=== PATIENT | female | born 1975 | race Two or more races ===

== ENCOUNTER 2020-05-28 16:09 | Outpatient (REF) | payer MEDICARE, MEDICAID, SELFPAY | END 2020-05-28 16:10 | disposition home or self-care (01) | LOC: HO.LAB 16:09 | PROVIDERS: PCP Pediatrics; Visit Provider Internal Medicine | DX: Z20.828 Contact with and (suspected) exposure to other viral communicable diseases (principal) | CPT/HCPCS: 87635 ==

== ENCOUNTER 2020-06-13 17:03 | Outpatient (REF) | payer MEDICARE, MEDICAID, SELFPAY | END 2020-06-13 17:04 | disposition home or self-care (01) | LOC: HO.LAB 17:03 | PROVIDERS: Visit Provider Internal Medicine | DX: Z20.828 Contact with and (suspected) exposure to other viral communicable diseases (principal) | CPT/HCPCS: C9803; U0003 ==

== ENCOUNTER 2020-07-02 17:05 | Outpatient (REF) | payer MEDICARE, MEDICAID, SELFPAY | END 2020-07-02 17:06 | disposition home or self-care (01) | LOC: HO.LAB 17:05 | PROVIDERS: Visit Provider Internal Medicine | DX: Z20.828 Contact with and (suspected) exposure to other viral communicable diseases (principal) | CPT/HCPCS: C9803; U0003 ==

== ENCOUNTER 2020-07-15 11:59 | Outpatient (REF) | payer MEDICARE, MEDICAID, SELFPAY ==
[2020-07-15 12:37] LABS: MANUAL DIFF FLAG NO
[2020-07-15 12:50] LABS: Basophils Percent Auto 0.4 % (0-2); Eosinophils Absolute Auto 0.1 X10*3/uL (0.0-0.4); Eosinophils Percent Auto 0.6 % (0-4); Hematocrit 38.6 % (37-47); Hemoglobin 12.3 g/dl (12.0-16.0); Imm Gran Abs Auto 0.03 X10*3/uL (0.00-0.03); Imm Gran Pct Auto 0.3 % (0.0-0.4); Lymphocytes Absolute Auto 2.9 X10*3/uL (1.2-4.9); Lymphocytes Percent Auto 27.4 % (20-40); Mean Corpuscular HGB Conc 31.9 g/dl (31.0-35.0); Mean Corpuscular Hemoglobin 28.1 pg (27.0-33.0); Mean Corpuscular Volume 88.3 fL (80-98); Mean Platelet Volume 10.8 fL (9.4-12.3); Monocytes Absolute Auto 0.6 X10*3/uL (0.1-1.2); Monocytes Percent Auto 5.8 % (2-11); Neutrophils Absolute Auto 6.9 X10*3/uL (2.0-8.3); Neutrophils Percent Auto 65.5 % (45-73); Platelet Count 288 X10*3/uL (160-400); Red Blood Count 4.37 X10*6/uL (4.20-5.50); Red Cell Distribution Width 13.6 % (11.0-16.0); White Blood Count 10.6 X10*3/uL (4.8-10.8)
[2020-07-15 13:25] LABS: Alanine Aminotransferase 31 U/L (0-31); Alkaline Phosphatase 77 U/L (39-117); Anion Gap 15 (12-20); Aspartate Amino Transferase 25 U/L (5-31); Bilirubin Total 1.1 mg/dL (0.0-1.0); Blood Urea Nitrogen 9 mg/dL (9-16); Calcium 9.2 mg/dL (8.4-10.2); Carbon Dioxide 25 mmol/L (22-29); Chloride 103 mmol/L (96-108); Estimated Glomerular Filt Rate > 60; Glucose Random 94 mg/dL (60-115); Potassium 4.2 mmol/l (3.3-5.1); Sodium 139 mmol/L (135-145); Total Protein 7.2 g/dL (6.5-8.0)
[2020-07-18 19:53] LABS: TS Negative Control Passed; TS Panel A 0; TS Panel B 0; TS Positive Control Passed; TSpotTB Negative (SeeBelow)
== END 2020-07-15 12:00 | disposition home or self-care (01) ==
LOC: HO.LAB 11:59
PROVIDERS: Visit Provider Physician Assistant Medical
DX: L40.0 Psoriasis vulgaris (principal)
CPT/HCPCS: 36415; 80053; 85025; 86481

== ENCOUNTER 2020-08-15 16:24 | Outpatient (REF) | payer OTHER, SELFPAY | END 2020-08-15 16:25 | disposition home or self-care (01) | LOC: HO.LAB 16:24 | PROVIDERS: Visit Provider Internal Medicine | DX: Z20.822 Contact with and (suspected) exposure to COVID-19 (principal) | CPT/HCPCS: 36415; C9803; U0003 ==

== ENCOUNTER → 2020-11-19 12:39 | Outpatient (REF) | payer OTHER, SELFPAY | LOC: HO.SL 12:39 | PROVIDERS: PCP Family Medicine; Visit Provider Family Medicine | DX: G47.33 Obstructive sleep apnea (adult) (pediatric) (principal) | CPT/HCPCS: 95806 ==

== ENCOUNTER 2021-02-17 09:25 | Outpatient (REF) | payer OTHER, SELFPAY ==
[2021-02-17 10:00] LABS: MANUAL DIFF FLAG NO
[2021-02-17 10:07] LABS: Basophils Percent Auto 0.3 % (0-2); Eosinophils Absolute Auto 0.1 X10*3/uL (0.0-0.4); Hematocrit 38.8 % (37-47); Imm Gran Abs Auto 0.03 X10*3/uL (0.00-0.03); Imm Gran Pct Auto 0.3 % (0.0-0.4); Lymphocytes Absolute Auto 4.3 X10*3/uL (1.2-4.9); Lymphocytes Percent Auto 39.9 % (20-40); Mean Corpuscular HGB Conc 30.9 g/dl (31.0-35.0); Mean Corpuscular Hemoglobin 26.9 pg (27.0-33.0); Mean Platelet Volume 10.7 fL (9.4-12.3); Monocytes Absolute Auto 0.7 X10*3/uL (0.1-1.2); Monocytes Percent Auto 6.7 % (2-11); Neutrophils Absolute Auto 5.5 X10*3/uL (2.0-8.3); Neutrophils Percent Auto 51.8 % (45-73); Platelet Count 317 X10*3/uL (160-400); Red Blood Count 4.46 X10*6/uL (4.20-5.50); Red Cell Distribution Width 13.5 % (11.0-16.0); White Blood Count 10.7 X10*3/uL (4.8-10.8)
[2021-02-17 10:32] LABS: Alanine Aminotransferase 30 U/L (0-31); Albumin Level 3.9 g/dL (3.5-5.0); Alkaline Phosphatase 75 U/L (39-117); Anion Gap 13 (12-20); Aspartate Amino Transferase 21 U/L (5-31); Bilirubin Total 1.2 mg/dL (0.0-1.0); Blood Urea Nitrogen 10 mg/dL (9-16); Calcium 9.1 mg/dL (8.4-10.2); Carbon Dioxide 25 mmol/L (22-29); Chloride 105 mmol/L (96-108); Estimated Glomerular Filt Rate > 60; Glucose Random 101 mg/dL (60-115); Potassium 4.3 mmol/L (3.3-5.1); Sodium 139 mmol/L (135-145); Total Protein 6.9 g/dL (6.5-8.0)
== END 2021-02-17 09:26 | disposition home or self-care (01) ==
LOC: HO.LAB 09:25
PROVIDERS: PCP Family Medicine; Visit Provider Physician Assistant Medical
DX: L40.0 Psoriasis vulgaris (principal)
CPT/HCPCS: 36415; 80053; 85025

== ENCOUNTER 2021-04-21 12:51 | Outpatient (REF) | payer OTHER, SELFPAY | END 2021-04-21 12:52 | disposition home or self-care (01) | LOC: HO.LAB 12:51 | PROVIDERS: PCP Family Medicine; Visit Provider Internal Medicine | DX: Z20.822 Contact with and (suspected) exposure to COVID-19 (principal) | CPT/HCPCS: C9803; U0003; U0005 ==

== ENCOUNTER 2021-05-12 13:02 | Outpatient (REF) | payer OTHER, SELFPAY | END 2021-05-12 13:03 | disposition home or self-care (01) | LOC: HO.LAB 13:02 | PROVIDERS: Visit Provider Internal Medicine | DX: Z20.822 Contact with and (suspected) exposure to COVID-19 (principal) | CPT/HCPCS: U0003; U0005 ==

== ENCOUNTER 2021-06-17 14:58 | Outpatient (REF) | payer OTHER, SELFPAY | END 2021-06-17 14:59 | disposition home or self-care (01) | LOC: HO.LAB 14:58 | PROVIDERS: PCP Family Medicine; Visit Provider Internal Medicine | DX: Z20.822 Contact with and (suspected) exposure to COVID-19 (principal) | CPT/HCPCS: C9803; U0003; U0005 ==

== ENCOUNTER 2022-01-12 08:48 | Emergency (ER) | payer OTHER, SELFPAY ==
--- NOTE | ~2022-01-12 | XR_ITS ---
EXAMINATION: XR FOOT, RIGHT CLINICAL INFORMATION: Right foot pain COMPARISON: None TECHNIQUE: AP, lateral, and oblique views of the right foot. FINDINGS: The ankle mortise and subtalar joints are normal. There are small calcaneal heel and retrocalcaneal enthesophytes. No visible acute fracture or dislocation seen. The soft tissues are normal. XR/XR foot RT 2V IMPRESSION: Small calcaneal heel and retrocalcaneal enthesophytes. No visible acute fracture, dislocation our subluxation.
[2022-01-12 08:55] VITALS: BP 180/93; PULSE 78; RESP 18; TEMP 36.9; O2SAT 98; BMI 46.8
--- NOTE | 2022-01-12 09:03 | ED.GENADULT ---
HPI - General Adult General Chief complaint: Extremity Problem Stated complaint: r foot pain. arthritis in knee Time Seen by Provider: 01/12/22 09:03 Source: patient Mode of arrival: ambulatory Limitations: no limitations History of Present Illness HPI narrative: Patient is a 46 year old female presenting to the emergency department today with right heel pain. Patient states that she has had increased right heel pain since doing some walking this weekend. Patient states that she has a history of arthritis in both knees, but now usually her feet. Patient denies any dizziness, lightheadedness, abdominal pain, nausea, vomiting, fever, chills, blurry vision, double vision, loss of vision, chest pain, difficulty breathing, shortness of breath, back pain, night sweats, pain with urination, increased urinary frequency, increased urinary urgency, blood in her urine or stool, syncope or a near syncopal episode, recent trauma or falls, bowel incontinence, bladder incontinence, bowel retention, bladder retention, or any other complaints at this time. Onset (ago): day(s) Location: right and lower extremity (heel) Radiation: non-radiation Severity: mild Severity scale (1-10): 2 Quality: dull Pain Consistency: constant Relieving factors: none Exacerbating factors: none Associated symptoms: denies other symptoms Treatments prior to arrival: none Related Data Allergies Allergy/AdvReac Type Severity Reaction Status Date / Time No Known Allergies Allergy Unknown N/A Unverified 04/25/20 14:58 [NO KNOWN ALLERGIES] Review of Systems Constitutional: Constitutional: Reports no additional constitutional complaints, Denies chills, Denies fever(s) and Denies night sweats Eyes: Eyes: Reports no additional eye complaints, Denies blurry vision, Denies change in vision, Denies diplopia, Denies eye discharge, Denies loss of vision and Denies eye pain ENT: Denies dizziness Cardiovascular: Cardiovascular: Reports no additional cardiovascular complaints, Denies chest pain, Denies lightheadedness, Denies Loss of Consciousness and Denies dyspnea Respiratory: Respiratory: Reports no additional respiratory complaints and Denies dyspnea Gastrointestinal: Gastrointestinal: Reports no additional gastrointestinal complaints, Denies abdominal pain, Denies melena, Denies hematochezia, Denies change in bowel habits and Denies change in stool character Genitourinary: Genitourinary: Denies hematuria, Denies urinary frequency, Denies dysuria, Denies urinary incontinence, Denies urinary hesitancy and Denies urinary urgency Musculoskeletal: Musculoskeletal: Reports no additional musculoskeletal complaints, Denies numbness and Denies tingling Comments: right heel pain Neurologic: Denies dizziness, Denies loss of vision, Denies numbness and Denies tingling Psychiatric: Psychiatric: Reports no additional psychiatric complaints Endocrine: Endocrine: Reports no additional endocrine complaints Hematologic/Lymphatic: Hematologic/Lymphatic: Reports no additional hematologic/lymphatic complaints Allergic/Immunologic: Allergic/Immunologic: Reports no additional allergic/immunologic complaints PMFSH Past Medical History Attestation statement: The following information was validated with the patient. Source: old records reviewed Social History Social History Advance Directives: No Advance Directives Information Provided: Yes Physical Exam ED Vital Signs: Vital Signs - 24 hr 01/12/22 08:55 01/12/22 10:11 Temperature 98.4 F Pulse Rate 78 60 Respiratory Rate 18 17 Blood Pressure 180/93 H 148/83 H Pulse Oximetry 98 97 BMI result Body Mass Index 46.8 Const General: cooperative, no acute distress, alert and awake Nutritional Appearance: well nourished Orientation/consciousness: patient oriented x3 Limitations: no limitations HENMT Head: Yes normal to inspection and Yes atraumatic Ears: hearing grossly normal bilaterally and external ears normal General nose exam: Normal external nose present, no nasal discharge noted and no epistaxis Face and sinus: Yes normal facial exam, No abrasion and No laceration Mouth: Normal oral and palatal mucosa present, no drooling and no muffled voice Eyes General: appearance normal, both eyes and all related structures Periorbital: periorbital findings normal Eyelids: Yes eyelids normal Conjunctivae: conjunctivae normal Pupils: Equal, round and reactive pupils present EOM: EOMs intact bilaterally Neck Neck: Yes normal visual inspection, Yes full ROM and Yes no lymphadenopathy Chest Chest palpation & inspection: normal inspection of the chest Resp Effort & Inspection: normal respiratory effort and able to speak in complete sentences Auscultation: clear to auscultation bilaterally Cardio Rate: regular rate Rhythm: regular rhythm GI Inspection: Yes normal to inspection Neuro General: patient oriented x3 and moves all extremities Cranial nerves: Yes Equal, round and reactive pupils present Cognition (Neuro): normal cognition Motor exam (neuro): 5/5 motor strength present throughout Sensory Exam: Normal double simultaneous stimulation for sensation Coordination: [id number] test normal Extrem General: Yes normal to inspection, Yes full ROM and Yes capillary refill normal Psych Appearance: grossly normal Mental Status: mental status grossly normal Affect: normal affect Attitude: cooperative Thought process: Normal thought process present Thought content: Normal thought content present Insight: Good insight present (Psych) Medical Decision Making MDM Narrative Medical decision making narrative: Patient is a 46 year old female presenting to the emergency department today with right heel pain. Patient's physical exam was unremarkable. Patient's right foot showed a small calcaneal heel and retrocalcaneal enthesophytes. I explained my physical exam findings as well as all test results to the patient. I answered all questions asked by the patient. I stressed the importance of the patient taking her medication as prescribed. I stressed the importance of the patient following up with her primary care provider and an orthopedic. I stressed the importance of the patient returning to the emergency department immediately if her symptoms were to worsen or if she were to develop any dizziness, shortness of breath, difficulty breathing, chest pain, blurry vision, loss of vision, nausea, vomiting, abdominal pain, fever, chills, back pain, or any other complaints. Patient verbalized agreement and understanding with this treatment plan and discharge. Differential Diagnosis Differential Diagnosis: heel spur, plantar fasciitis, right heel pain Medical Records Medical records reviewed: Yes I reviewed the patient's medical records. Imaging Data Right foot x-ray: Attestation: I personally reviewed and interpreted this imaging study as follows: My impression: Calcaneal heel and retrocalcaneal enthesophytes Radiologist's impression: EXAMINATION: XR FOOT, RIGHT CLINICAL INFORMATION: Right foot pain? COMPARISON: None? TECHNIQUE: AP, lateral, and oblique views of the right foot. FINDINGS: The ankle mortise and subtalar joints are normal. There are small calcaneal heel and retrocalcaneal enthesophytes. No visible acute fracture or dislocation seen. The soft tissues are normal.? XR/XR foot RT 2V IMPRESSION: Small calcaneal heel and retrocalcaneal enthesophytes. No visible acute fracture, dislocation our subluxation. Dictated By: aDniel Cornell MD Signed By: Electronically signed by Daniel Cornell MD 01/12/22 1024 Discharge Plan Discharge Clinical Impression: Plantar fasciitis Patient Disposition: Home, Self-Care Instructions: Plantar Fasciitis (ED) Additional Instructions: Follow up with your primary care provider and an orthopedist. Return to the emergency department immediately if your symptoms worsen or if you develop any dizziness, shortness of breath, difficulty breathing, chest pain, blurry vision, loss of vision, nausea, vomiting, abdominal pain, fever, chills, back pain, or any other complaints. Referrals: Laila De Jesus MD [Primary Care Provider] - Stand Alone Forms: Work/School Release Print Language: Kyrgyz
[2022-01-12 10:11] VITALS: BP 148/83; PULSE 60; RESP 17; O2SAT 97
== END 2022-01-12 10:58 | disposition home or self-care (01) ==
PROVIDERS: Emergency Provider Student in an Organized Health Care Education/Training Program; PCP Family Medicine
DX: M72.2 Plantar fascial fibromatosis (principal); M79.671 Pain in right foot
CPT/HCPCS: 73620; 99282; 99283

== ENCOUNTER 2022-03-06 15:05 | Outpatient (REF) | payer OTHER, SELFPAY ==
[2022-03-06 15:25] LABS: MANUAL DIFF FLAG NO
[2022-03-06 15:42] LABS: Basophils Percent Auto 0.3 % (0-2); Eosinophils Percent Auto 0.3 % (0-4); Hematocrit 41.2 % (37.0-47.0); Hemoglobin 13.1 g/dl (12.0-16.0); Imm Gran Abs Auto 0.06 X10*3/uL (0.00-0.03); Imm Gran Pct Auto 0.4 % (0.0-0.4); Lymphocytes Absolute Auto 2.3 X10*3/uL (1.2-4.9); Lymphocytes Percent Auto 16.7 % (20-40); Mean Corpuscular HGB Conc 31.8 g/dl (31.0-35.0); Mean Corpuscular Hemoglobin 27.2 pg (27.0-33.0); Mean Corpuscular Volume 85.7 fL (80.0-98.0); Mean Platelet Volume 10.5 fL (9.4-12.3); Monocytes Absolute Auto 0.6 X10*3/uL (0.1-1.2); Monocytes Percent Auto 4.2 % (2-11); Neutrophils Absolute Auto 10.7 x10*3/uL (2.0-8.3); Neutrophils Percent Auto 78.1 % (45-73); Platelet Count 337 X10*3/uL (160-400); Red Blood Count 4.81 X10*6/uL (4.20-5.50); Red Cell Distribution Width 13.9 % (11.0-16.0); White Blood Count 13.7 X10*3/uL (4.8-10.8)
[2022-03-06 16:12] LABS: Anion Gap 17 (12-20); Blood Urea Nitrogen 11 mg/dL (9-16); Calcium 9.4 mg/dL (8.4-10.2); Carbon Dioxide 24 mmol/L (22-29); Chloride 103 mmol/L (96-108); Estimated Glomerular Filt Rate > 60; Glucose Random 101 mg/dL (60-115); Potassium 4.6 mmol/L (3.3-5.1); Sodium 139 mmol/L (135-145)
[2022-03-12 12:57] LABS: TS Negative Control Passed; TS Panel A 0; TS Panel B 0; TS Positive Control Passed; TSpotTB Negative (Negative)
== END 2022-03-06 15:06 | disposition home or self-care (01) ==
LOC: HO.LAB 15:05
PROVIDERS: PCP Registered Nurse Community Health; Visit Provider Physician Assistant Medical
DX: Z11.1 Encounter for screening for respiratory tuberculosis (principal); L40.0 Psoriasis vulgaris; Z79.899 Other long term (current) drug therapy
CPT/HCPCS: 36415; 80048; 85025; 86481

== ENCOUNTER 2022-07-07 15:08 | Outpatient (REF) | payer OTHER, SELFPAY ==
--- NOTE | ~2022-07-07 | MM_ITS ---
EXAMINATION: MM SCREENING DIGITAL BREAST TOMOSYNTHESIS, BILATERAL CLINICAL INFORMATION: Screening. Asymptomatic. The lifetime risk of breast cancer based on the Tyrer-Cuzick Model is 16%. COMPARISON: Mammography: 10/06/2017 (baseline) TECHNIQUE: Digital breast tomosynthesis is performed in both the craniocaudal and mediolateral oblique views along with computer-aided detection (CAD). Synthesized 2D images are generated from the tomosynthesis. Additional bilateral MLO and left cleavage views are provided. FINDINGS: There are scattered areas of fibroglandular density (ACR BI-RADS breast composition Category b). There are no significant masses, abnormal calcifications, or other abnormalities. Parenchymal pattern is similar to prior baseline exam. The axilla are unremarkable. There is a small dermal lesion again seen overlying the posterior inferior medial right breast. MM/MM tomosynthesis screening BI IMPRESSION: No mammographic evidence of malignancy. ASSESSMENT: BI-RADS 2: Benign RECOMMENDATION: Routine annual mammography screening. This patient's information was entered into a reminder system with a target due date for their next mammogram.
== END 2022-07-07 15:09 | disposition home or self-care (01) ==
LOC: HO.MAMMO 15:08
PROVIDERS: PCP Registered Nurse; Visit Provider Registered Nurse
DX: Z12.31 Encounter for screening mammogram for malignant neoplasm of breast (principal)
CPT/HCPCS: 77063; 77067

== ENCOUNTER 2022-12-16 15:14 | Outpatient (REF) | payer OTHER, SELFPAY ==
[2022-12-16 15:38] LABS: MANUAL DIFF FLAG NO
[2022-12-16 16:14] LABS: Basophils Percent Auto 0.2 % (0-2); Eosinophils Absolute Auto 0.2 X10*3/uL (0.0-0.4); Eosinophils Percent Auto 1.3 % (0-4); Hematocrit 40.1 % (37.0-47.0); Hemoglobin 12.6 g/dl (12.0-16.0); Imm Gran Abs Auto 0.03 X10*3/uL (0.00-0.03); Imm Gran Pct Auto 0.2 % (0.0-0.4); Lymphocytes Absolute Auto 4.3 X10*3/uL (1.2-4.9); Mean Corpuscular HGB Conc 31.4 g/dl (31.0-35.0); Mean Corpuscular Hemoglobin 27.6 pg (27.0-33.0); Mean Corpuscular Volume 87.7 fL (80.0-98.0); Mean Platelet Volume 10.7 fL (9.4-12.3); Monocytes Absolute Auto 0.9 X10*3/uL (0.1-1.2); Monocytes Percent Auto 6.9 % (2-11); Neutrophils Absolute Auto 7.3 x10*3/uL (2.0-8.3); Neutrophils Percent Auto 57.4 % (45-73); Platelet Count 307 X10*3/uL (160-400); Red Blood Count 4.57 X10*6/uL (4.20-5.50); White Blood Count 12.8 X10*3/uL (4.8-10.8)
[2022-12-16 16:51] LABS: Anion Gap 12 (12-20); Blood Urea Nitrogen 13 mg/dL (9-16); Calcium 9.2 mg/dL (8.4-10.2); Carbon Dioxide 24 mmol/L (22-29); Chloride 107 mmol/L (96-108); Estimated Glomerular Filt Rate > 60; Glucose Random 85 mg/dL (60-115); Potassium 4.7 mmol/L (3.3-5.1); Sodium 138 mmol/L (135-145)
[2022-12-18 18:54] LABS: TS Negative Control Passed; TS Panel A 0; TS Panel B 0; TS Positive Control Passed; TSpotTB Negative (Negative)
== END 2022-12-16 15:15 | disposition home or self-care (01) ==
LOC: HO.LAB 15:14
PROVIDERS: Visit Provider Physician Assistant Medical
DX: L40.0 Psoriasis vulgaris (principal); Z79.899 Other long term (current) drug therapy
CPT/HCPCS: 36415; 80048; 85025; 86481

== ENCOUNTER 2023-04-10 11:40 | Emergency (ER) | payer OTHER, SELFPAY ==
[2023-04-10 11:47] VITALS: BP 157/82; PULSE 94; RESP 17; TEMP 36.8; O2SAT 98; BMI 52.0
--- NOTE | 2023-04-10 11:47 | ED.BACK ---
HPI - Back Pain/Injury General Chief Complaint: Back Pain/Injury Stated Complaint: lower back pain Time Seen by Provider: 04/10/23 11:55 Source: patient, RN notes reviewed and old records reviewed Mode of arrival: ambulatory History of Present Illness HPI Narrative: 47-year-old female with no significant past medical history presenting to the ED complaining of atraumatic left-sided low back pain since yesterday. Admits pain is nonradiating. Took 800 mg of Motrin around 06:00 without relief. Denies known injury/trauma or fall, urinary incontinence/retention, numbness, tingling, weakness, fever MD elicited complaint: back pain Related Data Previous Rx's Medication Instructions Recorded acetaminophen 500 mg tablet 500 mg PO Q6H PRN fever or pain 04/10/23 (Tylenol Extra Strength) #14 tabs cyclobenzaprine 5 mg tablet 5 mg PO Q8H PRN pain (scale score 04/10/23 7-10) 5 days #14 tabs lidocaine 5 % topical patch 1 patch topical DAILY PRN pain #30 04/10/23 (Lidoderm) ea naproxen 500 mg tablet 500 mg PO BID PRN pain 10 days #20 04/10/23 tabs Allergies Allergy/AdvReac Type Severity Reaction Status Date / Time No Known Allergies Allergy Unknown N/A Unverified 04/25/20 14:58 [NO KNOWN ALLERGIES] Review of Systems Review of Systems: Constitutional: No Fever, No Chills ENT/Mouth: No Ear Pain, No Nasal Congestion, No Sinus Pain, No Hoarseness, No sore throat, No Rhinorrhea, No Swallowing Difficulty Cardiovascular: No Chest Pain, No SOB Respiratory: No Cough, No Sputum Gastrointestinal: No Nausea, No Vomiting, No Abdominal pain Genitourinary: No Dysuria, No Urinary Frequency, No Hematuria, No Urinary Incontinence/retention, No Urgency, No Flank Pain Musculoskeletal: + joint pain, No Myalgias, No Joint Swelling Skin: No Skin Lesions, No rash Neuro: No Weakness, No Numbness, No Paresthesias Yes all other systems are reviewed and are negative Constitutional: Constitutional: Reports as per HPI Neurologic: Denies Sensory deficit (Neuro) PMFSH Past Medical History Attestation statement: The following information was validated with the patient. Source: old records reviewed Physical Exam Vital Signs: Vital Signs: Last Vital Signs Temp 98.3 F 04/10/23 11:47 Pulse 94 04/10/23 11:47 Resp 17 04/10/23 11:47 BP 157/82 H 04/10/23 11:47 Pulse Ox 98 04/10/23 11:47 O2 Del Method Room Air 04/10/23 11:47 BMI result Body Mass Index 52.0 Const: General: cooperative, healthy appearing and no acute distress Orientation/consciousness: patient oriented x3 Limitations: no limitations HEENT: Head: Yes normal to inspection and Yes atraumatic Ears: hearing grossly normal bilaterally General nose exam: Normal external nose present Face and sinus: Yes normal facial exam Eyes: General: appearance normal, both eyes and all related structures EOM: EOMs intact bilaterally Neck: Neck: Yes normal visual inspection and Yes no meningeal signs Resp: Effort & Inspection: normal respiratory effort and no respiratory distress Auscultation: clear to auscultation bilaterally Cardio: Rate: regular rate Heart sounds: S1 normal heart sound present and S2 normal heart sound present GI: Inspection: Yes normal to inspection Palpation (GI): Soft to palpation, nontender, no guarding and not rigid : General: Yes no CVA tenderness Back/Spine/Pelvis: Other: No midline cervical/thoracic/lumbar spinous tenderness/step-off or deformity. + left lower lumbar MSK tenderness to palpation reproducing subjective complaint. No ecchymosis/erythema or rash. Back: no CVA tenderness Skin: Rashes: no rashes Wounds: no wounds Neuro: Other: Strength intact throughout. No saddle anesthesia. Sensation intact to light touch. Neurovascular intact distally General: patient oriented x3, gait normal, tone normal, moves all extremities and no meningeal signs Cranial nerves: Yes CN's II-XII intact bilaterally Gait exam (Neuro): Normal gait present Motor exam (neuro): 5/5 motor strength present throughout Sensory Exam: No Sensory deficit (Neuro) Extrem: General: Yes normal to inspection Medical Decision Making Medical Decision Making MDM Narrative: 47-year-old female with no significant past medical history presenting to the ED complaining of atraumatic left-sided low back pain since yesterday. On exam vital signs stable, NAD, nontoxic appearing, ambulating with steady gait, no midline spinous tenderness throughout or red flag symptoms. Physical exam as above. Concern at MSK pain/strain and muscle spasming. Low suspicion equina/cord compression, epidural abscess or fracture. Unlikely pyelo/renal stone Plan: Pain management, PCP follow-up Please refer to course for remaining clinical decision making, interpretation of labs/imaging results, and discussions with consultants and/or family members. Results discussed with patient including worrisome signs and symptoms and strict return precautions, and when to return to the emergency department. They verbalized understanding and feel safe for discharge at this time. Differential Diagnosis Differential Diagnoses: The differential diagnosis associated with the presentation includes As above External Record Review External record reviewed: Inpatient record, Office record, Outpatient record, Prior outpatient labs, Prior outpatient radiology, Primary care record and Outside ED record Tests considered The following testing was considered but not selected: As above Prescription Management I considered prescription management with: Pain Medication Discharge Plan Discharge Clinical Impression: Low back pain Patient Disposition: Home, Self-Care Instructions: Acute Low Back Pain (ED) Additional Instructions: Your pain is likely musculoskeletal Flexeril is a muscle relaxer, take at night as it makes you drowsy, do not drive, drink alcohol, or operate machinery while taking it Naproxen as an anti-inflammatory / pain medication, take with food Lidoderm patches are numbing patches, apply to painful area In addition take Tylenol at home If symptoms persist or worsen, pain becomes unbearable, you developed urinary retention or incontinence, or weakness return to the ED Prescriptions: New acetaminophen [Tylenol Extra Strength] 500 mg tablet 500 mg PO Q6H PRN (Reason: fever or pain) Qty: 14 0RF lidocaine [Lidoderm] 5 % adhesive patch,medicated 1 patch topical DAILY MDD remove after 12 hours PRN (Reason: pain) Qty: 30 0RF Rx Instructions: leave on most painful area for up to 12 hrs naproxen 500 mg tablet 500 mg PO BID PRN (Reason: pain) 10 Days Qty: 20 0RF cyclobenzaprine 5 mg tablet 5 mg PO Q8H PRN (Reason: pain (scale score 7-10)) 5 Days Qty: 14 0RF Referrals: Sunshine Viera FNP [Primary Care Provider] - 1 week Stand Alone Forms: Work/School Release
--- OUTSIDE RECORDS SUMMARY | 2023-04-10 12:00 | XMS_ITS | Continuity of Care Document ---
Author Name Unknown Organization [facility] Address [address] [place] [address]- Care Team Providers Care Recycler Name Role Phone Not on Staff, PCP Primary Care Physician Unavail able Encounter [facility] Date(s): 06/09/22 - 07/09/22 [facility] [address] [place], [place] [address] Allergies, Adverse Reactions, Alerts No Known Allergies Social History Social History Type Response Smoking Status Unknown if ever smok ed; Tobacco user in household: No entered on: 10/26/16 Sex Patient Care team information Care Team Personnel Name: Not on Staff, PCP Position: S Physician (General Medicine) Member Role: PCP Care Team Related Persons Name: KB ORTIZ Address: [address] [place] [address]
--- OUTSIDE RECORDS SUMMARY | 2023-04-10 12:00 | XMS_ITS | Continuity of Care Document ---
Author Name Unknown Organization [facility] Address [address] [place] [address]- Care Team Providers Care Tyre Fitter Name Role Phone Not on Staff, PCP Primary Care Physician Unavail able Encounter [facility] Date(s[facility] 06/09/22 - 08/21/22 [facility] [address] [place], [place] [address] Attending Physician: Maru MINING CONSULTANT, Lety Allergies, Adverse Reactions, Alerts No Known Allergies Social History Social History Type Response Smoking Status Unknown if ever smok ed; Tobacco user in household: No entered on: 10/26/16 Sex Patient Care team information Care Team Personnel Name: Not on Staff, PCP Position: S Physician (General Medicine) Member Role: PCP Care Team Related Persons Name: KB ORTIZ Address: home [address] [place] [address]
--- OUTSIDE RECORDS SUMMARY | 2023-04-10 12:00 | XMS_ITS | Continuity of Care Document ---
Author Name Unknown Organization [facility] Address [address] [place] [address]- Care Team Providers Care Horticulture Professor Name Role Phone Not on Staff, PCP Primary Care Physician Unavail able Encounter [facility] Date(s): 07/22/22 - 08/21/22 [facility] [address] [place], [place] [address] Attending Physician: Delphine Perera Admitting Physician: Admmarlyn ArEdgar Referring Physician: Admtr, Ar8 Allergies, Adverse Reactions, Alerts No Known Allergies Social History Social History Type Response Smoking Status Unknown if ever smok ed; Tobacco user in household: No entered on: 10/26/16 Sex Patient Care team information Care Team Personnel Name: Not on Staff, PCP Position: S Physician (General Medicine) Member Role: PCP Care Team Related Persons Name: KB ORTIZ Address: home [address] [place] [address]
== END 2023-04-10 12:09 | disposition home or self-care (01) ==
PROVIDERS: Emergency Provider Emergency Medicine; PCP Registered Nurse
DX: M54.50 Low back pain, unspecified (principal)
CPT/HCPCS: 99282; 99283

== ENCOUNTER 2023-07-13 14:57 | Outpatient (REF) | payer OTHER, SELFPAY | END 2023-07-13 14:58 | disposition home or self-care (01) | LOC: HO.MAMMO 14:57 | PROVIDERS: PCP Registered Nurse; Visit Provider Registered Nurse | DX: Z12.31 Encounter for screening mammogram for malignant neoplasm of breast (principal) | CPT/HCPCS: 77063; 77067 ==

== ENCOUNTER → 2023-07-13 15:30 | Outpatient (BNV) | payer OTHER, SELFPAY | PROVIDERS: PCP Registered Nurse; Visit Provider Radiology Diagnostic Radiology | DX: Z12.31 Encounter for screening mammogram for malignant neoplasm of breast (principal) | CPT/HCPCS: 77063; 77067 ==

== ENCOUNTER 2023-08-19 15:12 | Outpatient (REF) | payer OTHER, SELFPAY ==
[2023-08-19 15:28] LABS: MANUAL DIFF FLAG NO
[2023-08-19 16:02] LABS: Basophils Percent Auto 0.3 % (0-2); Eosinophils Absolute Auto 0.1 X10*3/uL (0.0-0.4); Eosinophils Percent Auto 0.6 % (0-4); Hematocrit 39.8 % (37.0-47.0); Hemoglobin 12.4 g/dl (12.0-16.0); Imm Gran Abs Auto 0.03 X10*3/uL (0.00-0.03); Imm Gran Pct Auto 0.3 % (0.0-0.4); Lymphocytes Absolute Auto 2.7 X10*3/uL (1.2-4.9); Lymphocytes Percent Auto 26.6 % (20-40); Mean Corpuscular HGB Conc 31.2 g/dl (31.0-35.0); Mean Corpuscular Hemoglobin 27.4 pg (27.0-33.0); Mean Corpuscular Volume 87.9 fL (80.0-98.0); Mean Platelet Volume 11.1 fL (9.4-12.3); Monocytes Absolute Auto 0.8 X10*3/uL (0.1-1.2); Monocytes Percent Auto 7.5 % (2-11); Neutrophils Absolute Auto 6.5 x10*3/uL (2.0-8.3); Neutrophils Percent Auto 64.7 % (45-73); Platelet Count 288 X10*3/uL (160-400); Red Blood Count 4.53 X10*6/uL (4.20-5.50); Red Cell Distribution Width 14.4 % (11.0-16.0)
[2023-08-19 16:32] LABS: Anion Gap 14 (12-20); Blood Urea Nitrogen 7 mg/dL (9-16); Calcium 9.5 mg/dL (8.4-10.2); Carbon Dioxide 25 mmol/L (22-29); Chloride 104 mmol/L (96-108); Estimated Glomerular Filt Rate > 60; Glucose Random 89 mg/dL (60-115); Potassium 3.8 mmol/L (3.3-5.1); Sodium 139 mmol/L (135-145)
[2023-08-21 21:32] LABS: TS Negative Control Passed; TS Panel A 0; TS Panel B 0; TS Positive Control Passed; TSpotTB Negative (Negative)
== END 2023-08-19 15:13 | disposition home or self-care (01) ==
LOC: HO.LAB 15:12
PROVIDERS: Visit Provider Physician Assistant Medical
DX: L40.0 Psoriasis vulgaris (principal); Z79.899 Other long term (current) drug therapy; Z11.1 Encounter for screening for respiratory tuberculosis
CPT/HCPCS: 36415; 80048; 85025; 86481

== ENCOUNTER → 2023-09-24 20:30 | Outpatient (REF) | payer OTHER, SELFPAY | LOC: HO.SL 20:30 | PROVIDERS: PCP Registered Nurse; Visit Provider Nurse Practitioner | DX: Z13.89 Encounter for screening for other disorder (principal) ==

== ENCOUNTER 2023-10-05 11:55 | Outpatient (REF) | payer OTHER, SELFPAY ==
[2023-10-05 13:45] LABS: Alanine Aminotransferase 27 U/L (0-31); Albumin Level 4.1 g/dL (3.5-5.0); Alkaline Phosphatase 69 U/L (39-117); Anion Gap 11 (12-20); Aspartate Amino Transferase 22 U/L (5-31); Blood Urea Nitrogen 7 mg/dL (9-16); Calcium 9.6 mg/dL (8.4-10.2); Carbon Dioxide 28 mmol/L (22-29); Chloride 105 mmol/L (96-108); Cholesterol 216 mg/dL (<200); Estimated Glomerular Filt Rate > 60; Glucose Random 100 mg/dL (60-115); HDL Cholesterol 56 mg/dL (>40); LDL Cholesterol Calculated 130 mg/dL (<100); Sodium 140 mmol/L (135-145); Total Protein 7.8 g/dL (6.5-8.0); Triglycerides 151 mg/dL (<150)
[2023-10-05 14:28] LABS: Creatinine Urine 204.15 mg/dL; Microalbum/Creatinine Ratio Ur 17.6 ug/mg cr (<30)
[2023-10-05 15:01] LABS: CT PCR NOT DETECTED (Not Detect.); NG PCR NOT DETECTED (Not Detect.)
[2023-10-05 16:20] LABS: Estimated Average Glucose 114 mg/dL; Hemoglobin A1c % 5.6 % (<6.0)
[2023-10-06 08:39] LABS: HBS Num1 19.19 mIU/mL (0-7.99); HIV AB/AG Nonreactive (Nonreactive); HIV Num 1 0.05 S/CO (0.00-0.99); Hepatitis B Core Antibody Nonreactive (Nonreactive); Hepatitis B Surface Antigen Negative (Negative); ~HepC Num1 0.08 S/CO (0.00-0.79); ~Hepatitis B Surface Antibody REACTIVE (Nonreactive); ~Hepatitis C Antibody Nonreactive (Nonreactive)
[2023-10-07 08:08] LABS: RPR Rapid Plasma Reagin NON-REACTIVE (NON-REACTIVE)
== END 2023-10-05 11:56 | disposition home or self-care (01) ==
LOC: HO.HHCL 11:55
PROVIDERS: Visit Provider Nurse Practitioner
DX: Z11.59 Encounter for screening for other viral diseases (principal); Z11.4 Encounter for screening for human immunodeficiency virus [HIV]; E66.01 Morbid (severe) obesity due to excess calories; I10 Essential (primary) hypertension; Z20.2 Contact with and (suspected) exposure to infections with a predominantly sexual mode of transmission; Z72.89 Other problems related to lifestyle
CPT/HCPCS: 0353U; 36415; 80053; 80061; 82043; 82570; 83036; 86592; 86704; 86706; 86803; 87340; 87389

== ENCOUNTER 2023-10-29 15:12 | Outpatient (REF) | payer OTHER, SELFPAY ==
[2023-10-29 15:24] LABS: MANUAL DIFF FLAG NO
[2023-10-29 15:39] LABS: Basophils Absolute Auto 0.1 X10*3/uL (0.0-0.2); Basophils Percent Auto 0.4 % (0-2); Eosinophils Absolute Auto 0.2 X10*3/uL (0.0-0.4); Eosinophils Percent Auto 1.4 % (0-4); Hematocrit 39.7 % (37.0-47.0); Hemoglobin 12.7 g/dl (12.0-16.0); Imm Gran Abs Auto 0.05 X10*3/uL (0.00-0.03); Imm Gran Pct Auto 0.4 % (0.0-0.4); Lymphocytes Absolute Auto 4.6 X10*3/uL (1.2-4.9); Lymphocytes Percent Auto 33.9 % (20-40); Mean Corpuscular Hemoglobin 27.7 pg (27.0-33.0); Mean Corpuscular Volume 86.7 fL (80.0-98.0); Mean Platelet Volume 10.4 fL (9.4-12.3); Monocytes Absolute Auto 0.9 X10*3/uL (0.1-1.2); Monocytes Percent Auto 6.3 % (2-11); Neutrophils Absolute Auto 7.8 x10*3/uL (2.0-8.3); Neutrophils Percent Auto 57.6 % (45-73); Platelet Count 320 X10*3/uL (160-400); Red Blood Count 4.58 X10*6/uL (4.20-5.50); Red Cell Distribution Width 13.6 % (11.0-16.0); White Blood Count 13.5 X10*3/uL (4.8-10.8)
[2023-10-29 17:06] LABS: Anion Gap 14 (12-20); Blood Urea Nitrogen 7 mg/dL (9-16); Calcium 9.4 mg/dL (8.4-10.2); Carbon Dioxide 24 mmol/L (22-29); Chloride 106 mmol/L (96-108); Estimated Glomerular Filt Rate > 60; Glucose Random 96 mg/dL (60-115); Potassium 3.6 mmol/L (3.3-5.1); Sodium 140 mmol/L (135-145)
== END 2023-10-29 15:13 | disposition home or self-care (01) ==
LOC: HO.LAB 15:12
PROVIDERS: Visit Provider Physician Assistant Medical
DX: L40.0 Psoriasis vulgaris (principal); Z79.899 Other long term (current) drug therapy
CPT/HCPCS: 36415; 80048; 85025

== ENCOUNTER 2024-05-03 15:47 | Outpatient (REF) | payer OTHER, SELFPAY ==
[2024-05-03 17:09] LABS: Basophils Absolute Auto 0.1 X10*3/uL (0.0-0.2); Basophils Percent Auto 0.4 % (0-2); Eosinophils Absolute Auto 0.1 X10*3/uL (0.0-0.4); Eosinophils Percent Auto 1.1 % (0-4); Hematocrit 41.7 % (37.0-47.0); Hemoglobin 13.1 g/dl (12.0-16.0); Imm Gran Abs Auto 0.04 X10*3/uL (0.00-0.03); Imm Gran Pct Auto 0.3 % (0.0-0.4); Lymphocytes Absolute Auto 5.2 X10*3/uL (1.2-4.9); Lymphocytes Percent Auto 40.9 % (20-40); MANUAL DIFF FLAG SCAN; Mean Corpuscular HGB Conc 31.4 g/dl (31.0-35.0); Mean Corpuscular Hemoglobin 27.3 pg (27.0-33.0); Mean Corpuscular Volume 86.9 fL (80.0-98.0); Monocytes Absolute Auto 0.8 X10*3/uL (0.1-1.2); Monocytes Percent Auto 6.2 % (2-11); Neutrophils Absolute Auto 6.5 x10*3/uL (2.0-8.3); Neutrophils Percent Auto 51.1 % (45-73); Platelet Count 301 X10*3/uL (160-400); Red Cell Distribution Width 14.2 % (11.0-16.0); SCAN SMEAR FLAG 1; White Blood Count 12.8 X10*3/uL (4.8-10.8)
[2024-05-03 17:40] LABS: Alanine Aminotransferase 52 U/L (0-31); Albumin Level 4.2 g/dL (3.5-5.0); Alkaline Phosphatase 87 U/L (39-117); Anion Gap 12 (12-20); Aspartate Amino Transferase 40 U/L (5-31); Blood Urea Nitrogen 6 mg/dL (9-16); Calcium 9.8 mg/dL (8.4-10.2); Carbon Dioxide 28 mmol/L (22-29); Chloride 105 mmol/L (96-108); Estimated Glomerular Filt Rate > 60; Glucose Random 84 mg/dL (60-115); Potassium 3.9 mmol/L (3.3-5.1); Sodium 141 mmol/L (135-145); Total Protein 7.8 g/dL (6.5-8.0)
[2024-05-03 17:53] LABS: SLIDE REVIEW VERIFIED
== END 2024-05-03 15:48 | disposition home or self-care (01) ==
LOC: HO.LAB 15:47
PROVIDERS: Visit Provider Physician Assistant Medical
DX: L40.0 Psoriasis vulgaris (principal); Z79.899 Other long term (current) drug therapy
CPT/HCPCS: 36415; 80053; 85025

== ENCOUNTER 2024-10-20 10:06 | Outpatient (REF) | payer OTHER, SELFPAY ==
--- OUTSIDE RECORDS SUMMARY | 2024-10-20 11:21 | XMS_ITS | Encounter Summary ---
Author Organization [employer] Address [address] [place] [address] Care Team Providers Care Potter Or Ceramic Artist Name Role Phone Fior Pollack NP Primary Care Provider [phone] Reason for Visit * Reason Onset Date Comments chartprep 10/05/2024 Encounter Details Date Type Department Care Team ([facility] st Contact Info) Description 10/05/2024 Telephone [facility] [address] [place] [address] Fior Pollack NP [address] [place] [address] chartprep Social History Tobacco Use Types Packs/Day Years Used Date Smoking Tobacco: Some Days Cigarettes Passive Smoke Exposure: Current Smokeless Tobacco: Never Comments:She has a cigarette once in a blue now. Like 1 or twice a week, sometimes once a week. Depression Answer Date Recorded Patient Health Questionnaire-9 Score 0 09/01/2023 Patient Health Questionnaire-9 Score 0 09/01/2023 Last PHQ-9: Questionnaire Data Not on file 0 09/01/2023 Housing Stability Answer Date Recorded What is your housing situation today? I have katarina bello 09/01/[address] you li ve. Do you have problems with any of the following? None of the above 09/01/2023 Food Insecurity Answer Date Recorded Within the past 12 months, y ou worried that your food would run out before you got money to buy more: Never True 09/01/2023 Within the past 12 months,th e food you bought just didn't last and you didn't have enough money to get more: Never True Transportation Answer Date Recorded In the past 12 months, has l ack of transportation kept you from medical appts, meetings, work or from getting things needed for daily living? No 09/01/2023 Utilities Answer Date Recorded In the past 12 months, has t he electric, gas, oil or water company threatened to shut off services in your home? No 09/01/2023 Depression Answer Date Recorded Patient Health Questionnaire-2 Score 0 09/01/2023 Comments Unknown Sex and Gender Information Value Date Recorded Sex Assigned at Female 06/08/2022 10:15 AM EDT Legal Sex Female 10:15 AM EDT Gender Identity Female 06/08/2022 10:15 AM EDT Sexual Orientation Choose not to disclose 2021 10:15 AM EDT documented as of this encounter Miscellaneous Notes * Telephone Encounter - Shannan Lang [place] - 10/05/2024 10:47 AM EST Chart Prep Labs: not applicable Images: not applicable Vaccines due: yes Covid, tdap, hep b, pcv20, and flu. Referrals: n/a Screenings: colonoscopy , pap smear Overdue care gaps: Sbirt, SDOH, PHQ-9, Oral Health, ANUP-7 documented in this encounter Plan of Treatment Upcoming Encounters Date Type Department Care Team (Late st Contact Info) Description 12/01/2024 9:15 AM EDT Office Visit [facility] [address] [place] [phone] Fior Pollack NP [address] [place] [address] 12/20/2024 9:00 AM EDT Procedure Visit [facility] [address] [place] [id number] Fior Pollack NP [address] [place] [address] documented as of this encounter Visit Diagnoses Not on filedocumented in this encounter Additional Health Concerns Assessment Noted Time PHQ-9 Depression Total Score: 0 09/01/19 2:35 PM EST documented as of this encounter Care Teams Potter Or Ceramic Artist Relationship Specialty Start Date End Date Fior Pollack NP [address] [place] [address] PCP - General Family Medicine 07/20/23 documented as of this encounter
--- OUTSIDE RECORDS SUMMARY | 2024-10-20 11:21 | XMS_ITS | Encounter Summary ---
Author Organization [employer] Address [address] [facility] [address] [place] [address] Care Team Providers Care Manhole Builder Name Role Phone Fior Pollack NP Primary Care Provider [phone] Reason for Visit * Reason Comments Pre-visit Planning SDOH unable to reach LVM Encounter Details Date Type Department Care Team ([facility] Contact Info) Description 10/04/2024 Patient Outreach [facility] [address] [place] [address] Fior Pollack NP [address] [place] [address] Pre-visit Planning (SDOH unable to reach LVM) Social History Tobacco Use Types Packs/Day Years [...] your housing situation today? I have katarina sing 09/01/[address] you li [...] AM EDT documented as of this encounter Progress Notes * Massiel Nelson - 10/04/2024 2:46 PM EST NAHED Reddy placed outbound call to patient to complete pre-visit planning. No answer at this time. Patient name and were not confirmed. CC unable to leave a message due to number not in service documented in this encounter Plan of Treatment Upcoming Encounters Date Type Department Care Team (Late st Contact Info) Description 12/01/2024 9:15 AM EDT Office Visit [facility] [address] [place] [address] Fior Pollack NP [address] [place] [address] 12/20/2024 9:00 AM EDT Procedure Visit [facility] [address] [place] [phone] Fior Pollack NP [address] [place] [address] documented as of this encounter Visit Diagnoses Not on filedocumented in this encounter Additional Health Concerns Assessment Noted Time PHQ-9 Depression Total Score: 0 09/01/19 2:35 PM EST documented as of this encounter Care Teams Manhole Builder Relationship Specialty Start Date End Date Fior Pollack NP [address] [place] [address] PCP - General Family Medicine 07/20/23 documented as of this encounter
--- OUTSIDE RECORDS SUMMARY | 2024-10-20 11:21 | XMS_ITS | Encounter Summary ---
Author Organization [employer] Address [address] [facility] 7[address] [place] [address] Care Team Providers Care Data Collection Specialist Name Role Phone Fior Pollack NP Primary Care Provider [phone] Reason for Visit * Reason Onset Date Comments chartprep 10/13/2024 Encounter Details Date Type Department Care Team ([facility] st Contact Info) Description 10/13/2024 Telephone [facility] [address] [place] [address] Fior Pollack NP [address] [place] [address] chartprep Social History Tobacco Use Types Packs/Day [...] Telephone Encounter - Shannan Lang [place] - 10/13/2024 1:02 PM EST Chart Prep Labs: done Images: not applicable Vaccines due: yes Covid, tdap, hep b, pcv20, and flu. Referrals: n/a Screenings: colonoscopy , pap smear Overdue care gaps: Sbirt, SDOH, PHQ-9, ANUP-7 documented in this encounter Plan of Treatment Upcoming Encounters Date Type Department Care Team (Late st Contact Info) Description 12/01/2024 9:15 AM EDT Office Visit [facility] MED[facility] [address] [place] [phone] Fior Pollack NP [address] [place] [address] 12/20/2024 9:00 AM EDT Procedure Visit [facility] [address] [place] [phone] Fior Pollack NP [address] [place] [address] documented as of this encounter Visit Diagnoses Not on filedocumented in this encounter Additional Health Concerns Assessment Noted Time PHQ-9 Depression Total Score: 0 09/01/19 2:35 PM EST documented as of this encounter Care Teams Data Collection Specialist Relationship Specialty Start Date End Date Fior Pollack NP [address] [place] [address] PCP - General Family Medicine 07/20/23 documented as of this encounter
--- OUTSIDE RECORDS SUMMARY | 2024-10-20 11:21 | XMS_ITS | Encounter Summary ---
Author Organization [employer] Address [address] [facility] [address]t [place] [address] Care Team Providers Care Wallpaper Cleaner Name Role Phone Fior Pollack SUBASSEMBLY SUPERVISOR Primary Care Provider [phone] Reason for Visit * Reason Comments Med Refill Encounter Details Date Type Department Care Team ([facility] st Contact Info) Description 08/05/2023 Refill [facility] [address] [place] [address] Lety Bronson MD [address] [place] [address] COVID-19 Social History Tobacco Use Types Packs/Day Years Used Date Smoking Tobacco: Every Day Cigarettes Passive Smoke Exposure: Current Smokeless Tobacco: Never Housing Stability Answer Date Recorded What is your housing situation today? I have katarina bello 06/11/[address] you li ve. Do you have problems with any of the following? None of the above 06/11/2023 Food Insecurity Answer Date Recorded Within the past 12 months, y ou worried that your food would run out before you got money to buy more: Never True 06/11/2023 Within the past 12 months,th e food you bought just didn't last and you didn't have enough money to get more: Never True 10/2022 Transportation Answer Date Recorded In the past 12 months, has l ack of transportation kept you from medical appts, meetings, work or from getting things needed for daily living? No 06/11/2023 Utilities Answer Date Recorded In the past 12 months, has t he electric, gas, oil or water company threatened to shut off services in your home? No 06/11/2023 Depression Answer Date Recorded Patient Health Questionnaire-2 Score 0 07/14/2022 Comments Unknown Sex and Gender Information Value Date Recorded Sex Assigned at Female 06/08/2022 10:15 AM EDT Legal Sex Female 10:15 AM EDT Gender Identity Female 06/08/2022 10:15 AM EDT Sexual Orientation Choose not to disclose 2021 10:15 AM EDT documented as of this encounter Miscellaneous Notes * Telephone Encounter - Fior Pollack NP - 08/05/2023 3:04 PM EST Approving, but needs appt for additional refills. documented in this encounter Plan of Treatment Upcoming Encounters Date Type Department Care Team (Late st Contact Info) Description 12/01/2024 9:15 AM EDT Office Visit [facility] [address] [place] [phone] Fior Pollack NP [address] [place] [address] 12/20/2024 9:00 AM EDT Procedure Visit [facility] [address] [place] [address] Fior Pollack NP [address] [place] [address] documented as of this encounter Visit Diagnoses Diagnosis COVID-19 documented in this encounter Care Teams Wallpaper Cleaner Relationship Specialty Start Date End Date Fior Pollack NP [address] [place] [phone] PCP - General Family Medicine 07/20/23 documented as of this encounter
--- OUTSIDE RECORDS SUMMARY | 2024-10-20 11:21 | XMS_ITS | Encounter Summary ---
Author Organization [employer] Address [address] [facility] 7[address] [place] [address] Care Team Providers Care Certified Orthoptist Name Role Phone Fior Pollack TRUCK GUARD Primary Care Provider [phone] Encounter Details Date Type Department Care Team (Late st Contact Info) Description 10/20/2024 Orders Only [facility] [address] [place] [address] Facundo Carpenter, PharmD [address] [place] [address] Social History Tobacco Use Types Packs/Day Years Used Date Smoking Tobacco: Former Cigarettes Passive Smoke Exposure: Current Smokeless Tobacco: Never Comments:She has a cigarette once in a blue now. Like 1 or twice a week, sometimes once a week. Alcohol Answer Date Recorded How often do you have a drink containing alcohol ? 0 10/20/2024 How many drinks containing a lcohol do you have on a typical day when you are drinking? 0 10/20/2024 How often do you have six or more drinks on one occasion? 0 10/20/2024 Depression Answer Date Recorded Patient Health Questionnaire-9 Score 1 10/20/2024 Patient Health Questionnaire-9 Score 1 10/20/2024 Last PHQ-9: Questionnaire Data Not on file 0 10/20/2024 Housing Stability Answer Date Recorded What is your housing situation today? I have katarina blelo 10/20/[address] you li ve. Do you have problems with any of the following? None of the above 10/20/2024 Food Insecurity Answer Date Recorded Within the past 12 months, y ou worried that your food would run out before you got money to buy more: Never True 10/20/2024 Within the past 12 months,th e food you bought just didn't last and you didn't have enough money to get more: Never True Transportation Answer Date Recorded In the past 12 months, has l ack of transportation kept you from medical appts, meetings, work or from getting things needed for daily living? No 10/20/2024 Utilities Answer Date Recorded In the past 12 months, has t he electric, gas, oil or water company threatened to shut off services in your home? No 10/20/2024 Depression Answer Date Recorded Patient Health Questionnaire-2 Score 1 10/20/2024 Internet Access Answer Date Recorded Internet Access Q1 Yes 10/20/2024 Internet Access Q2 Not on file 10/20/2024 Comments Unknown Sex and Gender Information Value Date Recorded Sex Assigned at Female 06/08/2022 10:15 AM EDT Legal Sex Female 10:15 AM EDT Gender Identity Female 06/08/2022 10:15 AM EDT Sexual Orientation Choose not to disclose 2021 10:15 AM EDT documented as of this encounter Plan of Treatment Upcoming Encounters Date Type Department Care Team (Late st Contact Info) Description 12/01/2024 9:15 AM EDT Office Visit [facility] [address] [place] [address] Fior Pollack NP [address] [place] [address] 12/20/2024 9:00 AM EDT Procedure Visit [facility] [address] [place] [phone] Fior Pollack NP [address] [place] [address] documented as of this encounter Visit Diagnoses Not on filedocumented in this encounter Additional Health Concerns Assessment Noted Time PHQ-9 Depression Total Score: 1 10/21/19 9:56 AM EDT documented as of this encounter Care Teams Certified Orthoptist Relationship Specialty Start Date End Date Fior Pollack NP [address] [place] [phone] PCP - General Family Medicine 07/20/23 documented as of this encounter
--- OUTSIDE RECORDS SUMMARY | 2024-10-20 11:21 | XMS_ITS | Encounter Summary ---
Author Organization [employer] [facility] Address [address] [facility] 7[address] [place] [address] Care Team Providers Care Structured Cabling Technician Name Role Phone Fior Pollack NP Primary Care Provider [phone] Reason for Referral * Consultation (Routine) - Authorized Specialty Diagnoses / Procedures Referred By Mario adame Referred To Contact Nutrition Diagnoses Morbid obesity (CMS/HCC) Fior Pollack NP [address] [place] [address] Phone: tel: fax: Referral ID Status Reason Start Date Expiration Date Visits Requested Visits Authorized [id number] Authorized Specialty Services Required 10/20/2024 10/20/2025 1 1 * Imaging (Routine) - Closed Specialty Diagnoses / Procedures Referred By Mario adame Referred To Contact Radiology Diagnoses Encounter for screening mammogram for malignant neoplasm of breast Procedures BI Mammogram Screening Tomosynthesis Bilateral Fior Pollack NP [address] [place] [address] Phone: tel: fax: [address] Phone: tel: fax: Referral ID Status Reason Start Date Expiration Date Visits Re quested Visits Authorized [id number] Closed 10/20/2024 10/20/2025 1 1 Reason for Visit * Reason Comments office visit Encounter Details Date Type Department Care Team (Late st Contact Info) Description 10/20/2024 9:00 AM EDT Office Visit [facility] [address] [place] [address] Fior Pollack NP [address] [place] [address] Essential hypertension (Primary Dx); Screening for colon cancer; Morbid obesity (CMS/HCC); Dietary counseling; Exercise counseling; Encounter for screening mammogram for malignant neoplasm of breast; Encounter for immunization; Colon cancer screening Social History Tobacco Use Types Packs/Day Years Used Date Smoking Tobacco: Former Cigarettes Passive Smoke Exposure: Current Smokeless Tobacco: Never Tobacco Cessation:Counseling Given: Not Answered Comments:She has a cigarette once in a [...] housing situation today? I have katarina bello 10/20/[address] you li [...] AM EDT documented as of this encounter Last Filed Vital Signs Vital Sign Reading Time Taken Comments Blood Pressure 130/80 10/20/2024 9:10 AM EDT Pulse 82 10/20/2024 9:10 AM EDT Temperature 37.1 ??C (98.7 ??F) 10/20/2024 9:10 AM ED T Respiratory Rate 20 10/20/2024 9:10 AM EDT Oxygen Saturation 98% 10/20/2024 9:10 AM EDT Inhaled Oxygen Concentration - - Weight 156 kg (344 lb 9.6 oz) 10/20/2024 9:10 AM EDT Height 170.2 cm (5' 7 ) 10/20/2024 9:10 AM EDT Body Mass Index 53.97 10/20/2024 9:10 AM EDT documented in this encounter Progress Notes * Fior Pollack NP - 10/20/2024 9:00 AM EDT Subjective: Haylee Elmore 49 y.o. female presents for routine health maintenance. States she has been doing well overall. Denies recent illness, injury, or hospitalization. Current Concerns: Persistent knee and low back pain that's frustrating as it hinders her day to day activities sometimes. Interim updates: Hypertension: reports med compliance, denies chest pain, headache, vision changes. Highest home BP reading 147/80 mmHg; lowest: 129/79 mmHg. Average 130- 135/70's mmHg. Obesity: walks around about 10 mins per day. Stretches sometimes. Tries to eat fruits: banana, orange, apple, grapes, strawberry. Veggies broccoli, aspragus, lettus, cucumbers. Eats out for 1 meal about 1-2x a week. Drinks sprite occasionally; mostly water, juice, flavored mccormick. Lowest weight 189lbs; weight gain stated after her first Highest weight is today at 344 lbs Psoriasis: continues tremfya injection ordered by Isaura Morales in [place] Routine health maintenance: Colorectal screening: completed cologuard 10/2023 however, sample stability compromised. Discussed repeat today Cervical cancer screening: due for pap. Will schedule appointment Breast cancer screening: BI-RADS 1-negative 07/2023; repeat ordered today Eye appt: last seen December 2023 at [facility] Dental: [facility] dental [facility]; last seen 2023 Smoking stopped longest duration 6 months Review of Systems Constitutional: Negative. Negative for chills and fever. Respiratory: Negative for chest tightness and shortness of breath. Cardiovascular: Negative for chest pain. Gastrointestinal: Negative for abdominal pain, constipation, diarrhea and nausea. Genitourinary: Negative for dysuria. Musculoskeletal: Positive for arthralgias and back pain. Negative for myalgias and neck pain. Skin: Negative. Negative for rash and wound. Neurological: Negative for weakness, light-headedness and headaches. Psychiatric/Behavioral: Negative for behavioral problems, confusion, decreased concentration and suicidal ideas. Objective: Visit Vitals BP 130/80 (BP Location: Left arm, Patient Position: Sitting, BP Cuff Size: Thigh) Pulse 82 Temp 98.7 ??F (37.1 ??C) (Oral) Resp 20 Patient Active Problem List Diagnosis Psoriasis Palpitations Obstructive sleep apnea syndrome Morbid obesity (CMS/HCC) Migraine Low back pain Herpes zoster without complication Essential hypertension Bilateral plantar fasciitis COVID-19 Mild intermittent asthma Shortness of breath Routine adult health maintenance Colon cancer screening Routine screening for STI (sexually transmitted infection) Current Outpatient Medications on File Prior to Visit Medication Sig Dispense Refill albuterol (ProAir HFA) 108 (90 Base) MCG/ACT inhaler Inhale 2 puffs every 4 (four) hours if needed for wheezing or shortness of breath. 18 g 1 Acetaminophen Extra Strength 500 MG tablet TAKE 1 TABLET (500MG) BY ORAL ROUTE EVERY 6 HOURS NEEDED 60 tablet 0 ammonium lactate (Amlactin) 12 % cream Blood Pressure Monitoring (Omron 3 Series BP Monitor) device USE TO CHECK BLOOD PRESSURE Diclofenac Sodium 1 % gel Apply 2 g topically if needed in the morning, at noon, and at bedtime (Pain). 100 g 2 fluticasone (Flonase) 50 MCG/ACT nasal spray SPRAY 1 SPRAY INTO EACH NOSTRIL IN THE MORNING 48 mL 2 ibuprofen 800 MG tablet TAKE 1 TABLET BY MOUTH EVERY MORNING AT NOON AND AT BEDTIME FOR MILD-MODERATE PAIN IF NEEDED 90 tablet 1 omeprazole (PriLOSEC) [address] capsule TAKE 1 CAPSULE BY MOUTH EVERY DAY BEFORE A MEAL 90 capsule 1 Tremfya 100 MG/ML injection [DISCONTINUED] cyclobenzaprine (Flexeril) 5 MG tablet TAKE 1 TABLET ORALLY EVERY 8 HOURS NEEDED FOR PAIN (SCALE SCORE 7-10) FOR 5 DAYS [DISCONTINUED] metoprolol tartrate (Lopressor) 25 MG tablet TAKE 1 TABLET BY MOUTH TWICE A DAY 180 tablet 0 [DISCONTINUED] naproxen (Naprosyn) 500 MG tablet TAKE 1 TABLET ORALLY 2 TIMES A DAY NEEDED FOR PAIN FOR 10 DAYS No current facility-administered medications on file prior to visit. Physical Exam Vitals reviewed. Constitutional: General: She is not in acute distress. Appearance: Normal appearance. She is obese. She is not ill-appearing. HENT: Head: Normocephalic and atraumatic. Right Ear: External ear normal. Left Ear: External ear normal. Nose: Nose normal. Eyes: General: No scleral icterus. Extraocular Movements: Extraocular movements intact. Cardiovascular: Rate and Rhythm: Normal rate and regular rhythm. Pulses: Normal pulses. Heart sounds: Normal heart sounds. Pulmonary: Effort: Pulmonary effort is normal. No respiratory distress. Breath sounds: Normal breath sounds. Musculoskeletal: General: Normal range of motion. Cervical back: Normal range of motion and neck supple. No tenderness. Lymphadenopathy: Cervical: No cervical adenopathy. Neurological: General: No focal deficit present. Mental Status: She is alert and oriented to person, place, and time. Gait: Gait normal. Psychiatric: Mood and Affect: Mood normal. Behavior: Behavior normal. Problem List Items Addressed This Visit Morbid obesity (CMS/HCC) -documented 24 lbs weight gain between 08/21/23 and now -patient is agreeable to starting Zepbound to assist with weight management. Will start at low doseand titrate monthly pending patient tolerance -No contraindications identified: , hx of pancreatitis, hx of medullary thyroid cancer. Noknown retinopathy. -Discussed side effects with patient: side effects of GLP1: nausea, vomiting, diarrhea & risk of pancreatitis. -discussed mechanism of action with patient which include eating small portions and not eating through sensation of fullness. -Advised to keep medication refrigerated, but do not freeze -Recommended to eliminate soda and sugary beverage consumption. -Recommended at least 20 g per meal of protein to assist with satiety. -discussed recommendation of at least 150 min/week of moderate intensity exercise. She is encouraged to begin with 20 mins physical activity daily -dance coach referral placed Dietary Recommendations discussed: Fruits, vegetables, whole grains, protein foods, and fat-free or low-fat dairy products are healthychoices. Eat different types of protein foods in your diet. This can include seafood, lean meats, poultry, beans, peas, lentils, nuts, seeds, soy products, and eggs. Limit foods and beverages higher in added sugars, saturated fat, and sodium. Exercise Recommendations: At least 150 minutes of moderate-intensity physical activity per week, or an equivalent combinationof moderate- and vigorous-intensity activity Relevant Medications Tirzepatide-Weight Management 2.5 MG/0.5ML solution auto-injector Other Relevant Orders Lipid Panel, Standard Basic Metabolic Panel Hemoglobin A1c TSH W/Reflex to FT4 Referral to Nutrition Services Essential hypertension - Primary -stable -continue Metoprolol 25 mg two times daily -discussed diet and lifestyle modifications -monitoring labs ordered -discussed initiating statin with persistently elevated lipids Relevant Medications metoprolol tartrate (Lopressor) 25 MG tablet Other Relevant Orders Basic Metabolic Panel Albumin, Random Urine W/Creatinine Colon cancer screening -patient agreeable to repeat screening with cologuard -counseled on 13% false positive and 8% false negative rate and is aware that if the test is positive a diagnostic colonoscopy should be pursued within 3-6 months. -patient informed of need to repeat test in 3 years if negative result -will place GI referral if unsuccessful cologuard testing this time -cologuard order placed Other Visit Diagnoses Screening for colon cancer Relevant Orders Cologuard?? colon cancer screening Dietary counseling Exercise counseling Encounter for screening mammogram for malignant neoplasm of breast Relevant Orders BI Mammogram Screening Tomosynthesis Bilateral Encounter for immunization Relevant Orders PCV-20 VACCINE 6 wks + (Completed) Follow-up 6-8 weeks for weight management or sooner as needed documented in this encounter Miscellaneous Notes * Assessment & Plan Note - Fior Pollack NP - 10/20/2024 10:35 AM EDTAssociated Problem(s): Essential hypertension -stable -continue Metoprolol 25 mg two times daily -discussed diet and lifestyle modifications -monitoring labs ordered -discussed initiating statin with persistently elevated lipids * Assessment & Plan Note - Fior Pollack NP - 10/20/2024 10:31 AM EDTAssociated Problem(s): Colon cancer screening -patient agreeable to repeat screening with cologuard -counseled on 13% false positive and 8% false negative rate and is aware that if the test is positive a diagnostic colonoscopy should be pursued within 3-6 months. -patient informed of need to repeat test in 3 years if negative result -will place GI referral if unsuccessful cologuard testing this time -cologuard order placed * Assessment & Plan Note - Fior Pollack NP - 10/20/2024 10:27 AM EDTAssociated Problem(s): Morbid obesity (CMS/HCC) -documented 24 lbs weight gain between 08/21/23 and now -patient is agreeable to starting Zepbound to assist with weight management. Will start at low doseand titrate monthly pending patient tolerance -No contraindications identified: , hx of pancreatitis, hx of medullary thyroid cancer. Noknown retinopathy. -Discussed side effects with patient: side effects of GLP1: nausea, vomiting, diarrhea & risk of pancreatitis. -discussed mechanism of action with patient which include eating small portions and not eating through sensation of fullness. -Advised to keep medication refrigerated, but do not freeze -Recommended to eliminate soda and sugary beverage consumption. -Recommended at least 20 g per meal of protein to assist with satiety. -discussed recommendation of at least 150 min/week of moderate intensity exercise. She is encouraged to begin with 20 mins physical activity daily -dance coach referral placed Dietary Recommendations discussed: Fruits, vegetables, whole grains, protein foods, and fat-free or low-fat dairy products are healthychoices. Eat different types of protein foods in your diet. This can include seafood, lean meats, poultry, beans, peas, lentils, nuts, seeds, soy products, and eggs. Limit foods and beverages higher in added sugars, saturated fat, and sodium. Exercise Recommendations: At least 150 minutes of moderate-intensity physical activity per week, or an equivalent combinationof moderate- and vigorous-intensity activity documented in this encounter Plan of Treatment Upcoming Encounters Date Type Department Care Team (Late st Contact Info) Description 12/01/2024 9:15 AM EDT Office Visit [address] [address] Fior Pollack NP [address] [place] [address] 12/20/2024 9:00 AM EDT Procedure Visit [address] [address] Fior Pollack NP [address] [place] [address] Scheduled Orders Name Type Priority Associated Diagnoses Orde r Schedule Lipid Panel, Standard Lab Routine Morbid obesity (CMS/HCC) Expected: 10/20/2024 (Approximate), Expires: 10/20/2025 Basic Metabolic Panel Lab Routine Essential hypertension Morbid obesity (CMS/HCC) Expected: 10/20/2024 (Approximate), Expires: 10/20/2025 Cologuard?? colon cancer screening Lab Routine Screening for colon cancer Ordered: 10/20/2024 BI Mammogram Screening Tomosynthesis Bilateral Imaging Routine Encounter for screening mammogram for malignant neoplasm of breast Expected: 10/20/2024, Expires: 12/20/2025 Hemoglobin A1c Lab Routine Morbid obesity (CMS/HCC) Expected: 10/20/2024 (Approximate), Expires: 10/20/2025 TSH W/Reflex to FT4 Lab Routine Morbid obesity (CMS/HCC) Expected: 10/20/2024 (Approximate), Expires: 10/20/2025 Albumin, Random Urine W/Creatinine Lab Routine Essential hypertension Expected: 10/20/2024 (Approximate), Expires: 10/20/2025 Scheduled Referrals Name Type Priority Associated Diagnoses Orde r Schedule Referral to Nutrition Services Outpatient Referral Routine Morbid obesity (CMS/HCC) Expected: 10/20/2024 (Approximate), Expires: 10/20/2025 documented as of this encounter Visit Diagnoses Diagnosis Essential hypertension- Primary Unspecified essential hypertension Screening for colon cancer Special screening for malignant neoplasms, colon Morbid obesity (CMS/HCC) Morbid obesity Dietary counseling Dietary surveillance and counseling Exercise counseling Encounter for screening mammogram for malignant neoplasm of breast Encounter for immunization Colon cancer screening Special screening for malignant neoplasms, colon documented in this encounter Additional Health Concerns Assessment Noted Time PHQ-9 Depression Total Score: 1 10/21/19 25 9:56 AM EDT documented as of this encounter Care Teams Structured Cabling Technician Relationship Specialty Start Date End Date Fior Pollack NP [address] [place] [id number] PCP - General Family Medicine 07/20/23 documented as of this encounter
--- OUTSIDE RECORDS SUMMARY | 2024-10-20 11:21 | XMS_ITS | Encounter Summary ---
Author Organization [employer] Address [address] [facility] 7t [place] [address] Care Team Providers Care Foundry Patternmaker Name Role Phone Fior Pollack NP Primary Care Provider [phone] Encounter Details Date Type Department Care Team (Late st Contact Info) Description 11/02/2023 Orders Only [facility] [address] [place] [address] Fior Pollack NP [address] [place] [address] Colon cancer screening (Primary Dx) Social History Tobacco Use Types Packs/Day Years [...] Description 12/01/2024 9:15 AM EDT Office Visit [facility] [address] [place] [phone] Fior Pollack NP [address] [place] [address] 12/20/2024 9:00 AM EDT Procedure Visit [facility] [address] [place] [address] Fior Pollack NP [address] [place] [address] documented as of this encounter Visit Diagnoses Diagnosis Colon cancer screening- Primary Special screening for malignant neoplasms, colon documented in this encounter Additional Health Concerns Assessment Noted Time PHQ-9 Depression Total Score: 0 09/01/19 24 2:35 PM EST documented as of this encounter Care Teams Foundry Patternmaker Relationship Specialty Start Date End Date Fior Pollack NP [address] [place] [address] PCP - General Family Medicine 07/20/23 documented as of this encounter
--- OUTSIDE RECORDS SUMMARY | 2024-10-20 11:21 | XMS_ITS | Encounter Summary ---
Author Organization [employer] Address [address] [facility] [address] [place] [address] Care Team Providers Care Sql Server Dba Name Role Phone Jaki Fior TUB WASH OPERATOR Primary Care Provider [phone] Tyesha Ingram ANP Primary Care Provider [phone] Fior Pollack TUB WASH OPERATOR Primary Care Provider [phone] Reason for Visit * Reason Comments Med Refill Encounter Details Date Type Department Care Team (Late st Contact Info) Description 06/21/2023 Refill [facility] [address] [place] [address] Lety Bronson MD [address] [place] [address] Shortness of breath Social History Tobacco Use Types Packs/Day Years [...] Description 12/01/2024 9:15 AM EDT Office Visit [address] [address] Fior Pollack NP [address] [place] [address] 12/20/2024 9:00 AM EDT Procedure Visit [address] [address] Fior Pollack NP [address] [place] [address] documented as of this encounter Visit Diagnoses Diagnosis Shortness of breath documented in this encounter Care Teams Sql Server Dba Relationship Specialty Start Date End Date Fior Pollack NP [address] [place] [phone] PCP - General Family Medicine 05/13/23 07/11/23 Tyesha Ingram ANP [address] [place] [address] PCP - General Family Medicine 07/12/23 07/19/23 Fior Pollakc NP [address] [place] [address] PCP - General Family Medicine 07/20/23 documented as of this encounter
--- OUTSIDE RECORDS SUMMARY | 2024-10-20 11:21 | XMS_ITS | Encounter Summary ---
Author Organization [employer] Address [address] [facility] 7t [place] [address] Care Team Providers Care Systems Software Specialist Name Role Phone Fior Pollack PLANT DIRECTOR Primary Care Provider [phone] Tyesha Ingram ANP Primary Care Provider [phone] Fior Pollack PLANT DIRECTOR Primary Care Provider [phone] Encounter Details Date Type Department Care Team ([facility] st Contact Info) Description 06/14/2023 Telephone [facility] [address] [place] [address] Fior Pollack NP [address] [place] [address] Social History Tobacco Use Types Packs/Day Years Used Date Smoking Tobacco: Every Day Cigarettes Passive Smoke Exposure: Current Smokeless Tobacco: Never Housing Stability Answer Date Recorded What is your housing situation today? I have katarinalsia bello 06/11/[address] you [...] Description 12/01/2024 9:15 AM EDT Office Visit [facility] [address] [place] [address] Fior Pollack NP [address] [place] [address] 12/20/2024 9:00 AM EDT Procedure Visit [facility] [address] [place] [address] Fior Pollack NP [address] [place] [address] documented as of this encounter Visit Diagnoses Not on filedocumented in this encounter Care Teams Systems Software Specialist Relationship Specialty Start Date End Date Fior Pollack NP [address] [place] [address] PCP - General Family Medicine 05/13/23 07/11/23 Tyesha Ingram ANP [address] [place] [address] PCP - General Family Medicine 07/12/23 07/19/23 Fior Pollack NP [address] [place] [address] PCP - General Family Medicine 07/20/23 documented as of this encounter
--- OUTSIDE RECORDS SUMMARY | 2024-10-20 11:21 | XMS_ITS | Clinical Summary ---
Author Organization [employer] Address [address] [facility] 7[address] [place] [address] Care Team Providers Care Customer Sales Advisor Name Role Phone Fior Pollack SMALL ELECTRIC ENGINE TECHNICIAN Primary Care Provider [phone] Allergies No known active allergies Medications Blood Pressure Monitoring (Omron 3 Series BP Monitor) device USE TO CHECK BLOOD PRESSURE 04/03/20 22 Active Tremfya 100 MG/ML injection 06/20/20 22 Active ammonium lactate (Amlactin) 12 % cream 06/21/20 22 Active Diclofenac Sodium 1 % gelIndications:Bi lateral primary osteoarthritis of knee Apply 2 g topically if needed in the morning, at noon, and at bedtime (Pain). 100 g 2 07/14/20 22 Active omeprazole (PriLOSEC) [address] capsule TAKE 1 CAPSULE BY MOUTH EVERY DAY BEFORE A MEAL 90 capsule 1 12/01/19 23 Active ibuprofen 800 MG tabletIndications :Bilateral primary osteoarthritis of knee TAKE 1 TABLET BY MOUTH EVERY MORNING AT NOON AND AT BEDTIME FOR MILD-MODERAT E PAIN IF NEEDED 90 tablet 1 02/27/20 23 Active Acetaminophen Extra Strength 500 MG tabletIndications :COVID-19 TAKE 1 TABLET (500MG) BY ORAL ROUTE EVERY 6 HOURS NEEDED 60 tablet 05/10/20 23 Active fluticasone (Flonase) 50 MCG/ACT nasal sprayIndications: COVID-19 SPRAY 1 SPRAY INTO EACH NOSTRIL IN THE MORNING 48 mL 2 08/20/19 24 Active albuterol (ProAir HFA) 108 (90 Base) MCG/ACT inhalerIndication s:Shortness of breath Inhale 2 puffs every 4 (four) hours if needed for wheezing or shortness of breath. 18 g 1 09/01/19 24 Active Tirzepatide-Weigh t Management 2.5 MG/0.5ML solution auto-injectorIndi cations:Morbid obesity (CMS/HCC) Inject 0.5 mL (2.5 mg) under the skin 1 (one) time per week. 2 mL 10/21/19 25 Active metoprolol tartrate (Lopressor) 25 MG tabletIndications :Essential hypertension Take 1 tablet (25 mg) by mouth 2 times daily. 180 tablet 10/21/19 25 Active cyclobenzaprine (Flexeril) 5 MG tablet TAKE 1 TABLET ORALLY EVERY 8 HOURS NEEDED FOR PAIN (SCALE SCORE 7-10) FOR 5 DAYS 04/10/20 23 2024 Discontinued(M ed list cleanup (will not trigger notification to Pharmacy)) naproxen (Naprosyn) 500 MG tablet TAKE 1 TABLET ORALLY 2 TIMES A DAY NEEDED FOR PAIN FOR 10 DAYS 04/10/20 23 2024 Discontinued(M ed list cleanup (will not trigger notification to Pharmacy)) metoprolol tartrate (Lopressor) 25 MG tabletIndications :Essential hypertension TAKE 1 TABLET BY MOUTH TWICE A DAY 180 tablet 07/31/20 24 2024 Discontinued(R eorder (will not trigger notification to Pharmacy)) Active Problems Problem Noted Date Diagnosed Date Routine adult health maintenance 11/25/2023 Assessment & Plan (11/25/2023 1:36 PM EDT): -Mammogram: 07/2023 BI-RADS BI-RADS 1 - Negative Due 07/2024 -Cervical cancer screening (pap): 06/15/2013 NIL, HPV negative. Patient is due for repeat exam -Colonoscopy: order for cologuard placed today as patient denies personal and family history of colorectal cancer -Dexa Scan: not due for screening at this time -Hepatitis C Screen: ordered today -HIV Screen: ordered today -Immunizations: will discuss at next visit -Last dental: will discuss at next visit -last vision: will discuss at next visit -skin condition is being managed by [facility]er in [place] -[facility] paperwork completed and handed to patient at the completion of visit Colon cancer screening 11/25/2023 Assessment & Plan (10/20/2024 10:31 AM EDT): -patient agreeable to repeat screening with cologuard -counseled on 13% false positive and 8% false negative rate and is aware that if the test is positive a diagnostic colonoscopy should be pursued within 3-6 months. -patient informed of need to repeat test in 3 years if negative result -will place GI referral if unsuccessful cologuard testing this time -cologuard order placed Assessment & Plan (11/25/2023 1:35 PM EDT): -cologuard ordered for screening per USPTF guidelines Routine screening for STI (sexually transmitted infection) 11/25/2023 Assessment & Plan (11/25/2023 1:35 PM EDT): -patient agreeable to testing COVID-19 05/10/2023 Assessment & Plan (05/10/2023 5:08 PM EDT): Rx Paxlovid, there's no significant interactions detected in [place] interaction tracker. Use flonase x 5-10d Isolation in her room until 05/12, she can be out of isolation wearing a mask until 05/17 if sxs are absent for more than 24h without meds. Have her close contacts, including 5mo baby checked for covid within 5d or earlier prn sxs. Self-care measures: Rest (sleep at least 8 hours a night). Hydrate with plenty of water (avoid caffeine and alcohol). Use saline nose drops to loosen mucus Take Acetaminophen (Tylenol??)or Ibuprofen as needed to reduce fever or discomfort Gargle with salt water and use throat sprays/lozenges for throat pain. Use heated, humidified air. If you do not have a humidifier, take hot showers. Limit spread to others: Wash hands frequently. Cover coughs and sneezes using the crook of your elbow. FU Influenza PCR. Mild intermittent asthma 05/10/2023 Assessment & Plan (05/10/2023 5:01 PM EDT): Likely exacerbated by Covid, no desaturation or significant respiratory distress present today. Rx covid and use Albuterol q6h x 5d or q4h prn sob. Will fu in 2d re progression of sxs, should RTC prn worsening sob, fever, CP Shortness of breath 05/10/2023 Assessment & Plan (11/25/2023 1:37 PM EDT): -stable at this time. Symptom resolves with inhaler use -albuterol inhaler refilled per patient request Bilateral plantar fasciitis 08/31/2022 Overview (02/21/2023): Care managed by Ortho Last appt 08/21/22, diagnosed, XR normal, recommended stretches, referred PT. followup in 6-8 weeks 12/08/22 [facility] appt; cortisone injection procedure; weight loss. F/u 3 months Palpitations 07/01/2022 Herpes zoster without complication 07/01/2022 Obstructive sleep apnea syndrome 12/29/2018 Assessment & Plan (11/25/2023 1:27 PM EDT): -patient reports positive sleep study in the past, but does not have CPAP machine -order placed to repeat sleep study Morbid obesity 09/06/2018 Assessment & Plan (10/20/2024 10:30 AM EDT): -documented 24 lbs weight gain between 08/21/23 and now -patient is agreeable to starting Zepbound to assist with weight management. Will start at low dose and titrate monthly pending patient tolerance -No contraindications identified: , hx of pancreatitis, hx of medullary thyroid cancer. No known retinopathy. -Discussed side effects with patient: side [...] begin with 20 mins physical activity daily -vaccine customer representative referral placed Dietary Recommendations discussed: Fruits, vegetables, whole grains, protein foods, and fat-free or low-fat dairy products are healthy choices. Eat different types of protein foods in your diet. This can include seafood, lean meats, poultry, beans, peas, lentils, nuts, seeds, soy products, and eggs. Limit foods and beverages higher in added sugars, saturated fat, and sodium. Exercise Recommendations: At least 150 minutes of moderate-intensity physical activity per week, or an equivalent combination of moderate- and vigorous-intensity activity Assessment & Plan (11/25/2023 1:29 PM EDT): -patient reports dietary changes -Healthy diet and exercise teaching completed: Eat a variety of fruit and vegetables, whole grains such as whole-wheat flour, bulgur (cracked wheat), oatmeal, and brown rice. Intake protein from beans, nuts, fish, and lean meats. Eat low-fat or fat- free dairy products. Limit highly processed foods such as hot dogs, sandwich meat, etc. Engage in minimum of 150 min of moderate intensity exercise weekly -labs ordered to evaluate for metabolic causes of weight -will schedule follow-up appt to discuss weight management options Migraine 07/22/2018 Essential hypertension 07/22/2018 Assessment & Plan (10/20/2024 10:35 AM EDT): -stable -continue Metoprolol 25 mg two times daily -discussed diet and lifestyle modifications -monitoring labs ordered -discussed initiating statin with persistently elevated lipids Assessment & Plan (11/25/2023 1:39 PM EDT): -BP above target goal of < 130/80. BP today 160/86 -patient denies chest pain, headaches, vision changes -patient reports not taking BP medication today. metoprolol 25 mg refilled -microalbumin: ordered today -daily BP monitoring advised and medication compliance advised -low salt diet and 30 min moderate intensity daily exercise recommended -Reviewed ED precautions to include chest pain, shortness of breath, severe headache, sudden vision changes or BP >=180/>=120 mmHg. -Call clinic if three or more BP readings >140/90. -follow-up 3 months Psoriasis 08/10/2017 Low back pain 08/10/2017 Encounters Date Type Department Care Team Description 10/20/2024 9:00 AM EDT Office Visit [facility] [address] [place] [phone] Fior Pollack NP Essential hypertension (Primary Dx); Screening for colon cancer; Morbid obesity (CMS/HCC); Dietary counseling; Exercise counseling; Encounter for screening mammogram for malignant neoplasm of breast; Encounter for immunization; Colon cancer screening 10/20/2024 Orders Only [address] [address] Facundo Carpenter, PharmD 10/13/2024 Telephone [facility] [address] [place] [address] Fior Pollack NP chartprep 10/05/2024 Telephone [facility] [address] [place] [address] Fior Pollack NP chartprep 10/04/2024 Patient Outreach [facility] [address] [place] [address] Fior Pollack NP Pre-visit Planning ([facility] unable to reach M) 08/15/[address] [address] Fior Pollack NP Appointment Request ([facility] coordinator request this appointment) 07/29/[address] [address] Fior Pollack NP Essential hypertension from Last 3 Months Immunizations Name Administration Dates Next Due Influenza Injectable Quadriv alant Preservative Free IIV4 MDCK 04/30/2023,05/09/2019 Influenza injectable quadriv alent IIV4 with preservative 08/10/2017 Influenza injectable quadriv alent preservative free 05/19/2022,05/14/2021,04/28/2018 Influenza, seasonal, injecta ble, preservative free 07/21/2016 Moderna Covid-19 Vaccine 12+ 08/18/2021,12/25/19 21,11/26/2020 Pfizer Covid-19 Vaccine 12+ 08/18/2023 Pfizer Covid-19 Vaccine 12+ Bivalent 05/19/2022 Pneumococcal Conjugate PCV 20 10/20/2024 TD (adult), 2 Lf tetanus tox oid, preservative free, adsorbed 06/11/2022 Family History Medical History Relation Name Comments Diabetes Father Hyperlipidemia Mother Hypertension Mother Breast cancer Other Mat and pat Aunt Relation Name Status Comments Father Mother Other Mat and pat Aunt Social History Tobacco Use Types Packs/Day Years [...] not to disclose 2021 10:15 AM EDT Last Filed Vital Signs Vital Sign Reading [...] Mass Index 53.97 10/20/2024 9:10 AM EDT Plan of Treatment Upcoming Encounters Date Type Department Care Team (Late st Contact Info) Description 12/01/2024 9:15 AM EDT Office Visit [facility] [address] [place] [phone] Fior Pollack NP [address] [place] [address] 12/20/2024 9:00 AM EDT Procedure Visit [address] [address] Fior Pollack NP [address] [place] [address] Health Maintenance Due Date Last Done Comments CT Colonography 1975 Colonoscopy 1975 Colorectal Cancer Screening 1975 FIT DNA/Cologuard 1975 FIT 1975 FOBT 1975 Sigmoidoscopy 1975 Family Planning (PISQ) 1992 Pap Smear 06/15/2016 06/15/2013 Cervical Cancer Screening 06/15/2018 HPV/Cotest 06/15/2018 06/15/2013 DTaP/Tdap/Td Vaccines (1 - Tdap) 06/12/2022 06/11/2022 COVID-19 Vaccine ( season) 2024 08/18/2023, 05/19/2022, 08/18/2021, Additional history exists Influenza Vaccine (#1) 2024 , 05/19/2022, 05/14/2021, Additional history exists Mammogram 07/13/2025 07/13/2023, 10/12/2017 Alcohol/Substance Use Screening 10/20/2025 10/20/2024 Depression Screening 10/20/2025 10/20/2024, 10/21/19 SDOH Screening 10/20/2025 10/20/2024 Tobacco Screening 10/20/2025 10/20/2024 Zoster Vaccines (1 of 2) 2027 Lipid Panel 10/05/2028 10/05/2023, 06/11/2022 RSV Patients and Patients Aged 60 years or older (1 - 1-dose 75+ series) 2052 HIV Screening Completed 10/05/2023, 06/11/2022 Hepatitis C Screening Completed 10/05/2023, 022 Pneumococcal Vaccine: Pediatrics (0 to 5 Years) and At-Risk Patients (6 to 49) Years) Completed 10/20/2024 HIB Vaccines Aged Out No longer eligi ble based on patient's age to complete this topic HPV Vaccines Aged Out No longer eligi ble based on patient's age to complete this topic Hepatitis A Vaccines Aged Out No long er eligible based on patient's age to complete this topic Hepatitis B Vaccines Discontinued IPV Vaccines Aged Out No longer eligi ble based on patient's age to complete this topic Meningococcal Vaccine Aged Out No brandon marilou eligible based on patient's age to complete this topic RSV under 20 months Aged Out No longe r eligible based on patient's age to complete this topic Rotavirus Vaccines Aged Out No longer eligible based on patient's age to complete this topic Procedures Procedure Name Priority Date/Time Associated Diagnosis Comments HEPATITIS C AB W/REFL TO HCV RNA, QN, PCR Routine 10/05/2023 11:59 AM EST Routine screening for STI (sexually transmitted infection) HIV 1/2 ANTIGEN/ANTIBODY, FOURTH GENERATION W/RFL Routine 10/05/2023 11:59 AM EST Routine screening for STI (sexually transmitted infection) LIPID PANEL, STANDARD Routine 10/05/2023 11:59 AM EST Morbid obesity (CMS/HCC) BI MAMMOGRAM SCREENING TOMOSYNTHESIS BILATERAL Routine 07/13/2023 3:41 PM EST HM PAP/HPV Routine 06/15/2013 from Last 3 Months or Most Recently Relevant to Health Maintenance Results * Hepatitis C Antibody with Reflex to HCV, RNA, Quantitative, Real-Time PCR (10/05/2023 11:59 AM EST) Hepatitis C Antibody Nonreactive Nonreactive [facility] Comment:Antibodies to HCV no t detected; does not exclude early acuteHCV infection. Blood Venous blood specimen / Unknown 10/05/2023 11:59 AM EST 10/05/2023 1:09 PM EST Fior Pollack SMALL ELECTRIC ENGINE TECHNICIAN LAB BLOOD ORDERABLES Final Resu lt [facility] [address] [place] [address] [phone] * HIV-1/2 Antigen and Antibodies, Fourth Generation, with Reflexes (10/05/2023 11:59 AM EST) HIV AB/AG Nonreactive Nonreactive [facility] Comment:HIV-1 p24 Ag and/or HIV-1/HIV-2 Ab not detected.A test result that is nonreactive does not exclude thepossibility of exposure to or infection with HIV-1 and/orHIV-2. Nonreactive results in this assay for individualswith prior exposure to HIV-1 and/or HIV-2 may be due toantigen and antibody levels that are below the limit ofdetection of this assay.The [employer] HIV Ag/Ab Combo assay result andsupplemental assay results should be interpreted inconjunction with the patient's clinical presentation,history and other laboratory results. If the results areinconsistent with clinical evidence, additional testing issuggested to confirm the result. Blood Venous blood specimen / Unknown 10/05/2023 11:59 AM EST 10/05/2023 1:09 PM EST [facility] BLOOD ORDERABLES Final Resu lt Performing Organization Address [facility] de Phone Number [facility] [address] [place] [address] [phone] * (ABNORMAL) Lipid Panel, Standard (10/05/2023 11:59 AM EST) Triglycerides 151(H) <150 mg/dL [facility] Comment:Desirable Triglyceri de: less than 150 mg/dLBorderline High Triglyceride 150-199 mg/dLHigh Triglyceride: 200-499 mg/dLVery High Triglyceride: greater than or equal to 5OO mg/dL Cholesterol 216(H) <200 mg/dL [facility] Comment:Desirable Cholestero l: less than 200 mg/dLBorderline High Cholesterol: 200-239 mg/dLHigh Cholesterol: greater than 239 mg/dL LDL Cholesterol Calculated 130(H) <100 mg/dL [facility] Comment:Desirable LDL: less than 100 mg/dLNear Optimal/Above Optimal LDL: 110- 129 mg/dLBorderline High LDL: 130-159 mg/dLHigh LDL: 160-189 mg/dLVery High LDL: greater than or equal to 190 mg/dL HDL Cholesterol 56 >40 mg/dL [facility] Comment:Desirable HDL: great er than 40 mg/dL Note: This HDL assay may give artificially low results in patients with liver disease. Blood Venous blood specimen / Unknown 10/05/2023 11:59 AM EST 10/05/2023 1:09 PM EST Fior Pollack SMALL ELECTRIC ENGINE TECHNICIAN LAB BLOOD ORDERABLES Final Resu lt Performing Organization Address [facility] Co de Phone Number [facility] [address] [place] [address] [phone] * BI Mammogram Screening Tomosynthesis Bilateral (07/13/2023 3:41 PM EST) Anatomical Region Laterality Modality Breast Bilateral Mammography 07/13/2023 3:41 PM EST Narrative 08/04/2023 3:19 AM EST ? [facility] ? [address] ?[place] [address] ? Mammography Report ? Signed ? Patient: Haylee Elmore I ?MR#: [id number] ?? [id number] ? : 1975 ?Acct:[id number] ? Age/Sex: 48 / F ?ADM Date: 07/13/23 ? Loc: HO.MAMMO ? Attending Dr: Sunshine Viera LEAN MANUFACTURING LEADER ? Ordering Physician: Sunshine Viera LEAN MANUFACTURING LEADER ?Results: 1N ?? egative ? Date of Service: 07/13/23 ?Follow Up: 1 Year From Orig ?? inal Mammogram ? Procedure(s): MM tomosynthesis screening BI ?? Accession Number(s): [id number] ? cc: Sunshine Viera LEAN MANUFACTURING LEADER ? EXAMINATION: ?? MM SCREENING DIGITAL BREAST TOMOSYNTHESIS, BILATERAL ? CLINICAL INFORMATION: ? Screening. Asymptomatic. ? COMPARISON: ?? Mammography: This study is compared with prior exams dating back to ?? 2018. ? TECHNIQUE: ?? Digital breast tomosynthesis is performed in both the craniocaudal and ?? mediolateral oblique views along with computer-aided detection (CAD). ?? Synthesized 2D images are generated from the tomosynthesis. ? FINDINGS: ?? The breasts are almost entirely fatty (ACR BI-RADS breast composition ?? Category a). ? There are no significant masses, abnormal calcifications, or other ?? abnormalities. ? MM/MM tomosynthesis screening BI ?? IMPRESSION: ?? No mammographic evidence of malignancy. ? ASSESSMENT: ? BI-RADS BI-RADS 1 - Negative ? RECOMMENDATION: ?? Routine annual mammography screening. ? 1 year F/U ? This examination should not preclude the clinical evaluation of a ?? suspicious palpable abnormality. ? This patient's information was entered into a reminder system with a ?? target due date for their next mammogram. ? Dictated By: ?Milagros Ferreira MD ? Signed By: ?<Electronically signed by Milagros Ferreira MD in [place]> ? 08/04/23314 ? DD/ 1541 ? TD/TT: ? Tomato Pulper Operator: ? Procedure Note Inderjit, Image - 08/04/2023 [place] [facility] [address] [place] [address] Mammography Report Signed Patient: Haylee Elmore [facility]#: [id number] : 1975Acct:[id number] Age/Sex: 48 / FADM Date: 07/13/23 Loc: HO.MAMMO Attending Dr: Sunshine Viera LEAN MANUFACTURING LEADER Ordering Physician: Sunshine Viera FNPResults: 1N egative Date of Service: 07/13/23Follow Up: 1 Year From Orig inal Mammogram Procedure(s): MM tomosynthesis screening BI Accession Number(s): [id number] cc: Sunshine Viera LEAN MANUFACTURING LEADER EXAMINATION: MM SCREENING DIGITAL BREAST TOMOSYNTHESIS, BILATERAL CLINICAL INFORMATION: Screening. Asymptomatic. COMPARISON: Mammography: This study is compared with prior exams dating back to 2018. TECHNIQUE: Digital breast tomosynthesis is performed in both the craniocaudal and mediolateral oblique views along with computer-aided detection (CAD). Synthesized 2D images are generated from the tomosynthesis. FINDINGS: The breasts are almost entirely fatty (ACR BI-RADS breast composition Category a). There are no significant masses, abnormal calcifications, or other abnormalities. MM/MM tomosynthesis screening BI IMPRESSION: No mammographic evidence of malignancy. ASSESSMENT: BI-RADS BI-RADS 1 - Negative RECOMMENDATION: Routine annual mammography screening. 1 year F/U This examination should not preclude the clinical evaluation of a suspicious palpable abnormality. This patient's information was entered into a reminder system with a target due date for their next mammogram. Dictated By: Milagros Ferreira MD Signed By: <Electronically signed by Milagros Ferreira MD in OV> 08/04/235 DD/ 1541 TD/TT: Tomato Pulper Operator: Sunshine Viera LEAN MANUFACTURING LEADER IMG BI PROCEDURES Edited R esult - Final * Hm Pap Smear (06/15/2013) Pap Negative for intraephithelial lesion or malignancy Negative for intraephithelial lesion or malignancy, Other Comment:NILM HPV Not Detected Undetected, Indeterminate, Quantitative, Not Detected Comment:Negative Historical Provider HEALTH MAINTENANCE Final Result from Last 3 Months or Most Recently Relevant to Health Maintenance [place] [place] [address] [employer] * Guarantor: Haylee Elmore Account Type Relation to Patient Date of Phone Billing Address Personal/Family Self [address] [place] [phone] * Guarantor: Haylee Elmore Account Type Relation to Patient Date of Phone Billing Address Personal/Family Self [address] [place] [phone] * Guarantor: Haylee Elmore Account Type Relation to Patient Date of Phone Billing Address Personal/Family Self [address] [place] [phone] Care Teams Customer Sales Advisor Relationship Specialty Start Date End Date Fior Pollack NP [address] [place] [address] PCP - General Family Medicine 07/20/23
[2024-10-20 11:46] LABS: Estimated Average Glucose 126 mg/dL
[2024-10-20 11:59] LABS: Anion Gap 11 (12-20); Blood Urea Nitrogen 9 mg/dL (9-16); Calcium 9.3 mg/dL (8.4-10.2); Carbon Dioxide 26 mmol/L (22-29); Chloride 108 mmol/L (96-108); Cholesterol 190 mg/dL (<200); Estimated Glomerular Filt Rate > 60; Glucose Random 89 mg/dL (60-115); HDL Cholesterol 57 mg/dL (>40); LDL Cholesterol Calculated 104 mg/dL (<100); Potassium 4.1 mmol/L (3.3-5.1); Sodium 141 mmol/L (135-145); Triglycerides 147 mg/dL (<150)
[2024-10-20 12:15] LABS: TSH reflex Free T4 1.16 uIU/mL (0.32-4.0)
[2024-10-20 12:25] LABS: Creatinine Urine 131.37 mg/dL
== END 2024-10-20 10:07 | disposition home or self-care (01) ==
LOC: HO.HHCL 10:06
PROVIDERS: Visit Provider Nurse Practitioner
DX: I10 Essential (primary) hypertension (principal); E66.01 Morbid (severe) obesity due to excess calories; Z13.1 Encounter for screening for diabetes mellitus
CPT/HCPCS: 36415; 80048; 80061; 82043; 82570; 83036; 84443

== ENCOUNTER 2024-12-08 12:51 | Outpatient (REF) | payer OTHER, SELFPAY ==
--- OUTSIDE RECORDS SUMMARY | 2024-12-08 13:15 | XMS_ITS | Encounter Summary ---
Author Organization [employer] Address [address] [facility] [address] [place] [address] Care Team Providers Care Store Gift Wrap Associate Name Role Phone Fior Pollack FIELD HEALTH OFFICER Primary Care Provider [phone] Tyesha Ingram ANP Primary Care Provider [phone] Fior Pollack FIELD HEALTH OFFICER Primary Care Provider [phone] Encounter Details Date Type Department Care Team ([facility] st Contact Info) Description 06/14/2023 Telephone [facility] [address] [place] [address] Fior Pollack NP [address] [place] [address] Social History Tobacco Use Types Packs/Day Years Used Date Smoking Tobacco: Every Day Cigarettes Passive Smoke Exposure: Current Smokeless Tobacco: Never Housing Stability Answer Date Recorded What is your housing situation today? I have katarinalisa bello 06/11/[address] you [...] Care Team (Late st Contact Info) Description 12/18/2024 3:30 PM EDT Office Visit [facility] [address] [place] [phone] Fior Pollack NP [address] [place] [address] 12/20/2024 9:00 AM EDT Procedure Visit [facility] [address] [place] [phone] Fior Pollack NP [address] [place] [phone] documented as of this encounter Visit Diagnoses Not on filedocumented in this encounter Care Teams Store Gift Wrap Associate Relationship Specialty Start Date End Date Fior Pollack NP [address] [place] [address] PCP - General Family Medicine 05/13/23 07/11/23 Tyesha Ingram ANP [address] [place] [address] PCP - General Family Medicine 07/12/23 07/19/23 Fior Pollack NP [address] [place] [address] PCP - General Family Medicine 07/20/23 documented as of this encounter
--- OUTSIDE RECORDS SUMMARY | 2024-12-08 13:15 | XMS_ITS | Encounter Summary ---
Author Organization [employer] Address [address] [facility] 7t [place] [address] Care Team Providers Care Soda Dispenser Name Role Phone Fior Pollack NP Primary Care Provider [phone] Encounter Details Date Type Department Care Team (Late st Contact Info) Description 11/02/2023 Orders Only [facility] [address] [place] [address] Fior Pollack NP [address] [place] [address] Colon cancer screening (Primary Dx) Social History [...] Description 12/18/2024 3:30 PM EDT Office Visit [facility] [address] [place] [address] Fior Pollack NP [address] [place] [address] 12/20/2024 9:00 AM EDT Procedure Visit [facility] [address] [place] [address] Fior Pollack NP [address] [place] [address] documented as of this encounter Visit Diagnoses Diagnosis Colon cancer screening- Primary Special screening for malignant neoplasms, colon documented in this encounter Additional Health Concerns Assessment Noted Time PHQ-9 Depression Total Score: 0 09/01/19 24 2:35 PM EST documented as of this encounter Care Teams Soda Dispenser Relationship Specialty Start Date End Date Fior Pollack NP [address] [place] [phone] PCP - General Family Medicine 07/20/23 documented as of this encounter
--- OUTSIDE RECORDS SUMMARY | 2024-12-08 13:15 | XMS_ITS | Encounter Summary ---
Author Organization [employer] Address 75 [facility] 7t [place] [address] Care Team Providers Care Ocean Export Agent Name Role Phone Fior Pollack RAW CHEESE WORKER Primary Care Provider [phone] Reason for Visit * Reason Comments Med Refill Encounter Details Date Type Department Care Team ([facility] st Contact Info) Description 08/05/2023 Refill [facility] [address] [place] [address] Lety Bronson MD 230 [place] [address] COVID-19 Social History Tobacco Use Types Packs/Day [...] Description 12/18/2024 3:30 PM EDT Office Visit [facility] [address] [place] [address] Fior Pollack NP [address] [place] [address] 12/20/2024 9:00 AM EDT Procedure Visit [facility] [address] [place] [address] Fior Pollack NP [address] [place] [address] documented as of this encounter Visit Diagnoses Diagnosis COVID-19 documented in this encounter Care Teams Ocean Export Agent Relationship Specialty Start Date End Date Fior Pollack NP [address] [place] [address] PCP - General Family Medicine 07/20/23 documented as of this encounter
--- OUTSIDE RECORDS SUMMARY | 2024-12-08 13:15 | XMS_ITS | Encounter Summary ---
Author Organization [employer] Address 75 [facility] 7t [place] [address] Care Team Providers Care Hooker Inspector Name Role Phone Jaki Fior SAFETY SPECIALIST Primary Care Provider [phone] Tyesha Ingram ANP Primary Care Provider [phone] Fior Pollack SAFETY SPECIALIST Primary Care Provider [phone] Reason for Visit * Reason Comments Med Refill Encounter Details Date Type Department Care Team (Late st Contact Info) Description 06/21/2023 Refill [facility] 230 [place] [address] Lety Bronson MD 230 [place] [address] Shortness of breath Social History Tobacco Use [...] Description 12/18/2024 3:30 PM EDT Office Visit [address] [address] Fior Pollack NP [address] [place] [address] 12/20/2024 9:00 AM EDT Procedure Visit [address] [address] Fior Pollack NP [address] [place] [address] documented as of this encounter Visit Diagnoses Diagnosis Shortness of breath documented in this encounter Care Teams Hooker Inspector Relationship Specialty Start Date End Date Fior Pollack NP [address] [place] [address] PCP - General Family Medicine 05/13/23 07/11/23 Tyesha Ingram ANP [address] [place] [phone] PCP - General Family Medicine 07/12/23 07/19/23 Fior Pollack NP [address] [place] [address] PCP - General Family Medicine 07/20/23 documented as of this encounter
--- OUTSIDE RECORDS SUMMARY | 2024-12-08 13:15 | XMS_ITS | Encounter Summary ---
Author Organization [employer] Address 75 [facility] 7t [place] [address] Care Team Providers Care Beater Dumper Name Role Phone Fior Pollack FURNACE INSTALLER HELPER Primary Care Provider [phone] Encounter Details Date Type Department Care Team (Late st Contact Info) Description 10/20/2024 Orders Only [facility] 230 [place] [address] Facundo Carpenter, PharmD 230 [place] [address] Social History Tobacco Use Types Packs/Day Years [...] Description 12/18/2024 3:30 PM EDT Office Visit [facility] [address] [place] [address] Fior Pollack NP [address] [place] [address] 12/20/2024 9:00 AM EDT Procedure Visit [facility] [address] [place] [address] Fior Pollack NP [address] [place] [address] documented as of this encounter Visit Diagnoses Not on filedocumented in this encounter Additional Health Concerns Assessment Noted Time PHQ-9 Depression Total Score: 1 10/21/19 25 9:56 AM EDT documented as of this encounter Care Teams Beater Dumper Relationship Specialty Start Date End Date Fior Pollack NP [address] [place] [phone] PCP - General Family Medicine 07/20/23 documented as of this encounter
--- OUTSIDE RECORDS SUMMARY | 2024-12-08 13:15 | XMS_ITS | Clinical Summary ---
Author Organization [employer] Address 75 [facility] 7t [place] [address] Care Team Providers Care Roller Maker Name Role Phone Fior Pollack AUTO TOP MECHANIC Primary Care Provider [phone] Allergies No known active allergies Medications Blood Pressure Monitoring (Omron 3 Series BP Monitor) device USE TO CHECK BLOOD PRESSURE 2 Active Tremfya 100 MG/ML injection 2 Active ammonium lactate (Amlactin) 12 % cream 2 Active Diclofenac Sodium 1 % gelIndications:Dann ateral primary osteoarthritis of knee Apply 2 g topically if needed in the morning, at noon, and at bedtime (Pain). 100 g 2 2 Active omeprazole (PriLOSEC) [address] capsule TAKE 1 CAPSULE BY MOUTH EVERY DAY BEFORE A MEAL 90 capsule 1 3 Active ibuprofen 800 MG tabletIndications: Bilateral primary osteoarthritis of knee TAKE 1 TABLET BY MOUTH EVERY MORNING AT NOON AND AT BEDTIME FOR MILD-MODERATE PAIN IF NEEDED 90 tablet 1 3 Active Acetaminophen Extra Strength 500 MG tabletIndications: COVID-19 TAKE 1 TABLET (500MG) BY ORAL ROUTE EVERY 6 HOURS NEEDED 60 tablet 3 Active fluticasone (Flonase) 50 MCG/ACT nasal sprayIndications:C OVID-19 SPRAY 1 SPRAY INTO EACH NOSTRIL IN THE MORNING 48 mL 2 4 Active albuterol (ProAir HFA) 108 (90 Base) MCG/ACT inhalerIndications :Shortness of breath Inhale 2 puffs every 4 (four) hours if needed for wheezing or shortness of breath. 18 g 1 4 Active Tirzepatide-Weight Management 2.5 MG/0.5ML solution auto-injectorIndic ations:Morbid obesity (CMS/HCC) Inject 0.5 mL (2.5 mg) under the skin 1 (one) time per week. 2 mL 5 Active metoprolol tartrate (Lopressor) 25 MG tabletIndications: Essential hypertension Take 1 tablet (25 mg) by mouth 2 times daily. 180 tablet 5 Active Active Problems Problem Noted Date Diagnosed Date [...] visit -skin condition is being managed by Technical Support Professional in [facility] paperwork completed and handed to patient at [...] Paxlovid, there's no significant interactions detected in [facility] interaction tracker. Use flonase x 5-10d Isolation [...] begin with 20 mins physical activity daily -body trimmer referral placed Dietary Recommendations discussed: Fruits, vegetables, [...] Encounters Date Type Department Care Team Description 11/23/[address] [address] Jonas Slater MA chartprep 10/31/[address] [address] Fior Pollack NP Prior Auth Prescription 10/25/[address] NUTRITION APPT REQUEST 10/20/2024 9:00 AM EDT Office Visit [address] [address] Fior Pollack NP Essential hypertension (Primary Dx); Screening for colon cancer; Morbid obesity (CMS/HCC); Dietary counseling; Exercise counseling; Encounter for screening mammogram for malignant neoplasm of breast; Encounter for immunization; Colon cancer screening 10/20/2024 Orders Only [facility] [address] [place], [place] [phone] Facundo Carpenter, YeisonD 10/13/2024 Telephone [facility] [address] [place] [address] Fior Pollack NP chartprep 10/05/2024 Telephone [facility] [address] [place], [place] [phone] Fior Pollack NP chartprep 10/04/2024 Patient Outreach [facility] [address] [place], [place] [phone] Fior Pollack NP Pre-visit Planning ([facility] unable to reach [facility]) from Last 3 Months Immunizations Name Administration [...] Description 12/18/2024 3:30 PM EDT Office Visit [facility] [address] [place] [address] Fior Pollack NP 230 [place] [address] 12/20/2024 9:00 AM EDT Procedure Visit [facility] [address] [place] [address] Fior Pollack NP [address] [place] [address] Health Maintenance Due Date Last Done Comments [...] 10/20/2025 10/20/2024 Depression Screening 10/20/2025 10/20/2024, 10/21/19 25 Diabetes: Hemoglobin A1C 10/20/2025 025, 10/05/2023, 06/11/2022 SDOH Screening 10/20/2025 10/20/2024 Tobacco Screening 10/20/2025 10/20/2024 Zoster Vaccines (1 of 2) 2027 Lipid Panel 10/20/2029 10/20/2024, 09/10, 06/11/2022 RSV Patients and Patients Aged 60 [...] Procedure Name Priority Date/Time Associated Diagnosis Comments ALBUMIN, RANDOM URINE W/CREATININE Routine 10/20/2024 10:10 AM EDT Essential hypertension TSH W/REFLEX TO FT4 Routine 10/20/2024 1 0:10 AM EDT Morbid obesity (CMS/HCC) HEMOGLOBIN A1C Routine 10/20/2024 10:10 AM EDT Morbid obesity (CMS/HCC) BASIC METABOLIC PANEL Routine 10/20/2024 10:10 AM EDT Essential hypertension Morbid obesity (CMS/HCC) LIPID PANEL, STANDARD Routine 10/20/2024 10:10 AM EDT Morbid obesity (CMS/HCC) HEPATITIS C AB W/REFL TO HCV RNA, QN, PCR Routine 10/05/2023 11:59 AM EST Routine screening for STI (sexually transmitted infection) HIV 1/2 ANTIGEN/ANTIBODY, FOURTH GENERATION W/RFL Routine 10/05/2023 11:59 AM EST Routine screening for STI (sexually transmitted infection) BI MAMMOGRAM SCREENING TOMOSYNTHESIS BILATERAL Routine 07/13/2023 3:41 PM EST HM PAP/HPV Routine 06/15/2013 from Last 3 Months or Most Recently Relevant to Health Maintenance Results * TSH W/Reflex to FT4 (10/20/2024 10:10 AM EDT) TSH reflex Free T4 1.16 0.32 - 4.0 uIU/mL [facility] Blood Venous blood specimen / Unknown 10/20/2024 10:10 AM EDT 10/20/2024 11:15 AM EDT Fior Pollack NP LAB BLOOD ORDERABLES Final Resu lt [facility] [address] [place] [phone] * Albumin, Random Urine W/Creatinine (10/20/2024 10:10 AM EDT) Creatinine, Urine 131.37 mg/dL [facility] Microalbumin Urine 8.0 mg/L [facility] Microalbum Creatinine Ratio Ur 6.0 <30 ug/mg cr [facility] Comment:Albumin/Creatinine R atio Reference Ranges: Normal: < 30 ug/mg creatinine Microalbuminuria: 30 - 300 ug/mg creatinineClinical Albuminuria: > 300 ug/mg creatinine Urine (Urine, Random) 10/20/2024 10:10 AM EDT 10/20/2024 11:14 AM EDT Fior Butler AUTO TOP MECHANIC LAB URINE ORDERABLES Final Resu lt Performing Organization Address [facility] Co de Phone Number [facility] [address] [place] [phone] * Hemoglobin A1c (10/20/2024 10:10 AM EDT) Hemoglobin A1c 6.0 <6.0 % [facility] Comment:Hemoglobin A1C Refer ence Range Adults: 4.8 - 6.0 % Non diabetic: < 6.0 % Goal: < 7.0 %Additional Action Suggested: > 8.0 %Note: Hemoglobin A1c results are invalid for patients with abnormal amounts of HbF. Blood transfusions may impact the HbA1c concentration in the patient sample. Estimated Average Glucose 126 mg/dL [facility] Comment:eAG = Estimated ave rage glucose which is %A1C expressed asaverage glucose, using the formula of the B0U-JcdmomtRnjssfa Glucose study (ADAG), Diabetes Care, Vol.31,#8,Mar. 2007 Blood Venous blood specimen / Unknown 10/20/2024 10:10 AM EDT 10/20/2024 11:15 AM EDT Fior Butler AUTO TOP MECHANIC LAB BLOOD ORDERABLES Final Resu lt Performing Organization Address [facility] Co de Phone Number [facility] [address] [place] [phone] * (ABNORMAL) Lipid Panel, Standard (10/20/2024 10:10 AM EDT) Triglycerides 147 <150 mg/dL [facility] Comment:Desirable Triglyceri de: less than 150 mg/dLBorderline High Triglyceride 150-199 mg/dLHigh Triglyceride: 200-499 mg/dLVery High Triglyceride: greater than or equal to 5OO mg/dL Cholesterol 190 <200 mg/dL [facility] Comment:Desirable Cholestero l: less than 200 mg/dLBorderline High Cholesterol: 200-239 mg/dLHigh Cholesterol: greater than 239 mg/dL LDL Cholesterol Calculated 104(H) <100 mg/dL [facility] Comment:Desirable LDL: less than 100 mg/dLNear Optimal/Above Optimal LDL: 110- 129 mg/dLBorderline High LDL: 130-159 mg/dLHigh LDL: 160-189 mg/dLVery High LDL: greater than or equal to 190 mg/dL HDL Cholesterol 57 >40 mg/dL [facility] Comment:Desirable HDL: great er than 40 mg/dL Note: This HDL assay may give artificially low results in patients with liver disease. Blood Venous blood specimen / Unknown 10/20/2024 10:10 AM EDT 10/20/2024 11:15 AM EDT Fior Pollack NP LAB BLOOD ORDERABLES Final Resu lt [facility] [address] [place] [phone] [phone] * (ABNORMAL) Basic Metabolic Panel (10/20/2024 10:10 AM EDT) Sodium 141 135 - 145 mmol/L [facility] Potassium 4.1 3.3 - 5.1 mmol/L [facility] Chloride 108 96 - 108 mmol/L [facility] Carbon Dioxide 26 22 - 29 mmol/L [facility] Anion Gap 11(L) 12 - 20 [facility] Urea Nitrogen (BUN) 9 9 - 16 mg/dL [facility] Creatinine, Serum 0.57 0.5 - 1.4 mg/dL [facility] Estimated Glomerular Filt Rate >60 [facility] Comment:Chronic Kidney Disea se: Estimated GFR < 60 mL/min/[id number] Kidney Disease: Estimated GFR < 15 mL/min/1.73m2 Glucose 89 60 - 115 mg/dL [facility] Calcium 9.3 8.4 - 10.2 mg/dL [facility] Blood Venous blood specimen / Unknown 10/20/2024 10:10 AM EDT 10/20/2024 11:15 AM EDT [facility] LAB BLOOD ORDERABLES Final Resu lt Performing Organization Address [facility]/ZIP Co de Phone Number [facility] [address] [place] [phone] * Hepatitis C Antibody with Reflex to HCV, RNA, Quantitative, Real-Time PCR (10/05/2023 11:59 AM EST) Hepatitis C Antibody Nonreactive Nonreactive [facility] Comment:Antibodies to HCV no t detected; does not exclude early acuteHCV infection. Blood Venous blood specimen / Unknown 10/05/2023 11:59 AM EST 10/05/2023 1:09 PM EST [facility] LAB BLOOD ORDERABLES Final Resu lt Performing Organization Address [facility] Co de Phone Number [facility] [address] [place] [phone] * HIV-1/2 Antigen and Antibodies, Fourth Generation, with Reflexes (10/05/2023 11:59 AM EST) HIV AB/AG Nonreactive Nonreactive [facility] Comment:HIV-1 p24 Ag and/or HIV-1/HIV-2 Ab not detected.A test result that is nonreactive does not exclude thepossibility of exposure to or infection with HIV-1 and/orHIV-2. Nonreactive results in this assay for individualswith prior exposure to HIV-1 and/or HIV-2 may be due toantigen and antibody levels that are below the limit ofdetection of this assay.The [employer] HIV Ag/Ab Combo assay result andsupplemental assay results should be interpreted inconjunction with the patient's clinical presentation,history and other laboratory results. If the results areinconsistent with clinical evidence, additional testing issuggested to confirm the result. Blood Venous blood specimen / Unknown 10/05/2023 11:59 AM EST 10/05/2023 1:09 PM EST [facility] TOP MECHANIC LAB BLOOD ORDERABLES Final Resu lt [facility] [address] [place] [address] [phone] * BI Mammogram Screening Tomosynthesis Bilateral (07/13/2023 3:41 PM EST) Anatomical Region Laterality Modality Breast Bilateral Mammography 07/13/2023 3:41 PM EST Narrative 08/04/2023 3:19 AM EST ? [facility] ? [address] ?[place] [address] ? Mammography Report ? Signed ? Patient: RamírezHaylee Aden ?MR#: [id number] ?? [id number] ? : 1975 ?Acct:[id number] ? Age/Sex: 48 / F ?ADM Date: 07/13/23 ? Loc: HO.MAMMO ? Attending Dr: Sunshine Viera CAFETERIA MONITOR ? Ordering Physician: Maximiliano,Sunshine Palafox CAFETERIA MONITOR ?Results: 1N ?? egative ? Date of Service: 07/13/23 ?Follow Up: 1 Year From Orig ?? inal Mammogram ? Procedure(s): MM tomosynthesis screening BI ?? Accession Number(s): [id number] ? cc: Sunshine Viera CAFETERIA MONITOR ? EXAMINATION: ?? MM SCREENING DIGITAL BREAST [...] by Milagros Ferreira MD in OV> ? 08/04/23 0315 ? DD/ 1541 ? TD/TT: ? Senior Corporate Strategy Manager: ? Procedure Note Inderjit, Image - 08/04/2023 [facility] [address] [place] [address] Mammography Report Signed Patient: Haylee Elmore [facility]#: [id number] : 1975Acct:[id number] Age/Sex: 48 / FADM Date: 07/13/23 Loc: JOSE Attending Dr: Sunshine Viera CAFETERIA MONITOR Ordering Physician: Sunshine Viera FNPResults: 1N egative Date of Service: 07/13/23Follow Up: 1 Year From Orig inal Mammogram Procedure(s): MM tomosynthesis screening BI Accession Number(s): [id number] cc: Sunshine Viera CAFETERIA MONITOR EXAMINATION: MM SCREENING DIGITAL BREAST TOMOSYNTHESIS, BILATERAL [...] signed by Milagros Ferreira MD in OV> 08/04/23 0315 DD/ 1541 TD/TT: Senior Corporate Strategy Manager: Sunshine Viera CAFETERIA MONITOR IMG BI PROCEDURES Edited R esult - Final * Hm Pap Smear (06/15/2013) Pap Negative for intraephithelial lesion or malignancy Negative for intraephithelial lesion or malignancy, Other Comment:NILM HPV Not Detected Undetected, Indeterminate, Quantitative, Not Detected Comment:Negative Historical Provider HEALTH MAINTENANCE Final Result from Last 3 Months or Most Recently Relevant to Health Maintenance Insurance [facility] ONE CARE < 65 Care Teams Roller Maker Relationship Specialty Start Date End Date Fior Pollack NP [address] [place] [address] PCP - General Family Medicine 07/20/23
== END 2024-12-08 12:52 | disposition home or self-care (01) ==
LOC: HO.MAMMO 12:51
PROVIDERS: PCP Nurse Practitioner; Visit Provider Nurse Practitioner
DX: Z12.31 Encounter for screening mammogram for malignant neoplasm of breast (principal)
CPT/HCPCS: 77063; 77067

== ENCOUNTER → 2024-12-08 13:15 | Outpatient (BNV) | payer OTHER, SELFPAY | PROVIDERS: PCP Nurse Practitioner; Visit Provider Internal Medicine | DX: Z12.31 Encounter for screening mammogram for malignant neoplasm of breast (principal) | CPT/HCPCS: 77063; 77067 ==

== ENCOUNTER 2024-12-20 13:48 | Outpatient (REF) | payer OTHER, SELFPAY ==
--- OUTSIDE RECORDS SUMMARY | 2024-12-20 13:50 | XMS_ITS | Encounter Summary ---
Author Organization [employer] Address [address] [facility] [address] [place] [address] Care Team Providers Care Front Desk Person Name Role Phone Fior Pollack NP Primary Care Provider [phone] Reason for Visit * Reason Comments Gynecologic Exam Encounter Details Date Type Department Care Team (Latest Contact Info) Description 12/20/2024 9:00 AM EDT Procedure Visit [facility] [address] [place] [address] Fior Pollack NP [address] [place] [address] Encounter for Papanicolaou smear for cervical cancer screening (Primary Dx); Skin tag of labia; Dermatitis associated with moisture; Perimenopause; Psoriasis Social History Tobacco Use Types Packs/Day Years [...] Sign Reading Time Taken Comments Blood Pressure 136/72 12/20/2024 10:04 AM EDT Pulse 81 12/20/2024 9:19 AM EDT Temperature 36.8 ??C (98.3 ??F) 12/20/2024 9:19 AM ED T Respiratory Rate 20 12/20/2024 9:19 AM EDT Oxygen Saturation 99% 12/20/2024 9:19 AM EDT Inhaled Oxygen Concentration - - Weight 151 kg (332 lb 3.2 oz) 12/20/2024 9:19 AM EDT Height 170.2 cm (5' 7 ) 12/20/2024 9:19 AM EDT Body Mass Index 52.03 12/20/2024 9:19 AM EDT documented in this encounter Progress Notes * Fior Pollack NP - 12/20/2024 9:00 AM EDT Images from the original note were not included. Subjective: Haylee Elmore 49 y.o. female presents for cervical cancer screening Denies recent illness, injury, or hospitalization. HPI Pap history: Last pap June 15, 2013 NILM, HPV negative control method: none at this time; she is not interested in contraception method at this time Sexual activity: male partner, she is happy, no concerns for STI; does not want to retest Menstrual history: irregular now. Most recent early November. Before that no menses for 6 months lasts6-7 days; uses pads, minimal cramping history: all via Mammogram: completed 12/08/24 BI-RADS 0 with need for additional imaging of right breast. Left breast w/o abnormal findings. States she has follow-up for US on December 26. Denies perimenopausal symptoms with exception of menstrual irregularity [employer]OF[employer] PROSTHET[employer] DENTIST concerns: (eg, vaginal, urinary, sexual health or breast symptoms) Review of Systems Constitutional: Negative for chills and fever. Genitourinary: Negative for difficulty urinating, dyspareunia, dysuria, menstrual problem, pelvic pain, vaginal bleeding, vaginal discharge and vaginal pain. All other systems reviewed and are negative. Objective: Vitals: 12/20/24 0919 12/20/24 1004 BP: (!) 150/73 136/72 BP Location: Left arm Right arm Patient Position: Sitting Sitting BP Cuff Size: Large adult Large adult Pulse: 81 Resp: 20 Temp: 98.3 ??F (36.8 ??C) TempSrc: Oral SpO2: 99% Weight: 332 lb 3.2 oz (151 kg) Height: 5' 7 (1.702 m) Patient Active Problem List Diagnosis Psoriasis Palpitations Obstructive sleep apnea syndrome Morbid obesity (CMS/HCC) Migraine Low back pain Herpes zoster without complication Essential hypertension Bilateral plantar fasciitis COVID-19 Mild intermittent asthma Shortness of breath Routine adult health maintenance Colon cancer screening Routine screening for STI (sexually transmitted infection) Encounter for Papanicolaou smear for cervical cancer screening Perimenopause Current Outpatient Medications on File Prior to Visit Medication Sig Dispense Refill Tremfya 100 MG/ML solution auto-injector Acetaminophen Extra Strength 500 MG tablet TAKE 1 TABLET (500MG) BY ORAL ROUTE EVERY 6 HOURS NEEDED 60 tablet 0 albuterol (ProAir HFA) 108 (90 Base) MCG/ACT inhaler Inhale 2 puffs every 4 (four) hours if needed for wheezing or shortness of breath. 18 g 1 ammonium lactate (Amlactin) 12 % cream Blood [...] MILD-MODERATE PAIN IF NEEDED 90 tablet 1 metoprolol tartrate (Lopressor) 25 MG tablet Take 1 tablet (25 mg) by mouth 2 times daily. 180 tablet 0 omeprazole (PriLOSEC) [address] capsule TAKE 1 CAPSULE BY MOUTH EVERY DAY BEFORE A MEAL 90 capsule 1 Tirzepatide-Weight Management (Zepbound) 5 MG/0.5ML solution auto-injector Inject 0.5 mL (5 mg) under the skin every 7 (seven) days. 2 mL 0 [DISCONTINUED] albuterol (ProAir HFA) 108 (90 Base) MCG/ACT inhaler Inhale 2 puffs every 4 (four) hours if needed for wheezing or shortness of breath. 18 g 1 [DISCONTINUED] metoprolol tartrate (Lopressor) 25 MG tablet Take 1 tablet (25 mg) by mouth 2 times daily. 180 tablet 0 [DISCONTINUED] Tirzepatide-Weight Management 2.5 MG/0.5ML solution auto-injector Inject 0.5 mL (2.5mg) under the skin 1 (one) time per week. 2 mL 0 [DISCONTINUED] Tremfya 100 MG/ML injection No current facility-administered medications on file prior to visit. Physical Exam Exam conducted with a foreign exchange clerk present (HANK Mcdaniel). Constitutional: Appearance: Normal appearance. She is obese. Pulmonary: Effort: Pulmonary effort is normal. Chest: Breasts: Right: Normal. No swelling, bleeding, inverted nipple, mass, nipple discharge, skin change or tenderness. Left: Normal. No swelling, bleeding, inverted nipple, mass, nipple discharge, skin change or tenderness. Genitourinary: General: Normal vulva. Exam position: Lithotomy position. Labia: Right: No rash, tenderness, lesion or injury. Left: No rash, tenderness, lesion or injury. Vagina: Normal. No signs of injury and foreign body. No vaginal discharge, erythema or prolapsed vaginal rai. Cervix: Normal. No cervical motion tenderness, discharge, erythema or cervical bleeding. Uterus: Normal. Not enlarged and not tender. Adnexa: Right adnexa normal and left adnexa normal. Right: No mass, tenderness or fullness. Left: No mass, tenderness or fullness. Rectum: Normal. Comments: Cervix difficult to visualized due to body habitus. Normal muscle tone with Kegels. No prolapse with valsalva Lymphadenopathy: Upper Body: Right upper body: No supraclavicular or axillary adenopathy. Left upper body: No supraclavicular or axillary adenopathy. Skin: General: Skin is warm and dry. Findings: Lesion present. Comments: Skin tag located in right labia majora Neurological: Mental Status: She is alert and oriented to person, place, and time. Psychiatric: Mood and Affect: Mood normal. Behavior: Behavior normal. Problem List Items Addressed This Visit Psoriasis -followed by outside Derm provider -medication list updated Relevant Medications Tremfya 100 MG/ML solution auto-injector nystatin (Mycostatin) 337282 UNIT/GM powder Encounter for Papanicolaou smear for cervical cancer screening - Primary -pap with HPV in 5 years if today test normal. Will call with results -encouraged to keep upcoming appointment for further breast imaging -reviewed normal vs abnormal perimenopausal bleeding patterns -bone density at age 67 if not sooner Relevant Medications Tremfya 100 MG/ML solution auto-injector Other Relevant Orders Pap Smear Perimenopause -discussed hormonal changes associated with perimenopause and possible symptoms such as mood swing,hot flashes, vaginal dryness, sleep disturbance -informed menopause is determined as cessation of menses for 12 consecutive months -advised close tracking of menses -discussed importance of optimizing sleep, maintaining healthy diet with sufficient calcium and vitamin D intake, and daily exercise Relevant Medications Tremfya 100 MG/ML solution auto-injector Other Visit Diagnoses Skin tag of labia Relevant Medications Tremfya 100 MG/ML solution auto-injector Dermatitis associated with moisture -PE suggestive of intertrigo to bilateral groin folds extending onto pubis and inner thighs -encouraged to keep area clean and dry -rx'ed nystatin powder -will obtain DME for moisture wicking cloth (interdry) Relevant Medications Tremfya 100 MG/ML solution auto-injector nystatin (Mycostatin) [id number] UNIT/GM powder documented in this encounter Miscellaneous Notes * Assessment & Plan Note - Fior Pollack NP - 12/20/2024 12:31 PM EDTAssociated Problem(s): Psoriasis -followed by outside Derm provider -medication list updated * Assessment & Plan Note - Fior Pollack NP - 12/20/2024 12:30 PM EDTAssociated Problem(s): Perimenopause -discussed hormonal changes associated with perimenopause and possible symptoms such as mood swing,hot flashes, vaginal dryness, sleep disturbance -informed menopause is determined as cessation of menses for 12 consecutive months -advised close tracking of menses -discussed importance of optimizing sleep, maintaining healthy diet with sufficient calcium and vitamin D intake, and daily exercise * Assessment & Plan Note - Fior Pollack NP - 12/20/2024 9:25 AM EDTAssociated Problem(s): Encounter for Papanicolaou smear for cervical cancer screening -pap with HPV in 5 years if today test normal -encouraged to keep upcoming appointment for further breast imaging -reviewed normal vs abnormal perimenopausal bleeding patterns -bone density at age 67 if not sooner documented in this encounter Plan of Treatment Upcoming Encounters Date Type Department Care Team (Late st Contact Info) Description 03/21/2025 3:15 PM EDT Office Visit [facility] [address] [place] [address] Fior Pollack NP [address] [place] [address] Scheduled Orders Name Type Priority Associated Diagnoses Orde r Schedule Pap Smear Pathology and Cytology Routine Encounter for Papanicolaou smear for cervical cancer screening Ordered: 12/20/2024 documented as of this encounter Visit Diagnoses Diagnosis Encounter for Papanicolaou smear for cervical cancer screening- Primary Skin tag of labia Dermatitis associated with moisture Perimenopause Symptomatic menopausal or female climacteric states Psoriasis Other psoriasis documented in this encounter Additional Health Concerns Assessment Noted Time PHQ-9 Depression Total Score: 1 10/21/19 25 9:56 AM EDT documented as of this encounter Care Teams Front Desk Person Relationship Specialty Start Date End Date Fior Pollack NP [address] [place] [id number] PCP - General Family Medicine 07/20/23 documented as of this encounter
--- OUTSIDE RECORDS SUMMARY | 2024-12-20 13:50 | XMS_ITS | Encounter Summary ---
Author Organization [employer] Address [address] [place] [address] Care Team Providers Care Awning Craftsperson Name Role Phone Fior Pollack GUERRERO Primary Care Provider [phone] Encounter Details Date Type Department Care Team (Latest Contact Info) Description 12/20/2024 Travel Social History Tobacco Use Types Packs/Day Years [...] Description 03/21/2025 3:15 PM EDT Office Visit [facility] [address] [place] [address] Fior Pollack NP [address] [place] [address] documented as of this encounter Visit Diagnoses Not on filedocumented in this encounter Additional Health Concerns Assessment Noted Time PHQ-9 Depression Total Score: 1 10/21/19 25 9:56 AM EDT documented as of this encounter Care Teams Awning Craftsperson Relationship Specialty Start Date End Date Fior Pollack NP [address] [place] [address] PCP - General Family Medicine 07/20/23 documented as of this encounter
--- OUTSIDE RECORDS SUMMARY | 2024-12-20 13:50 | XMS_ITS | Encounter Summary ---
Author Organization [employer] Address [address] [facility] [address] [place] [address] Care Team Providers Care Cabinet Professional Name Role Phone Fior Pollack NP Primary Care Provider [phone] Encounter Details Date Type Department Care Team (Latest Contact Info) Description 12/20/2024 Results Follow-Up [facility] [address] [place] [address] Fior Pollack NP [address] [place] [address] BI Mammogram Screening Tomosynthesis Bilateral Social History Tobacco Use Types Packs/Day Years [...] Description 03/21/2025 3:15 PM EDT Office Visit [facility] [address] [place] [address] Fior Pollack NP [address] [place] [address] documented as of this encounter Visit Diagnoses Not on filedocumented in this encounter Additional Health Concerns Assessment Noted Time PHQ-9 Depression Total Score: 1 10/21/19 25 9:56 AM EDT documented as of this encounter Care Teams Cabinet Professional Relationship Specialty Start Date End Date Fior Pollack NP [address] [place] [address] PCP - General Family Medicine 07/20/23 documented as of this encounter
--- OUTSIDE RECORDS SUMMARY | 2024-12-20 13:50 | XMS_ITS | Encounter Summary ---
Author Organization [employer] Address [address] [facility] [address] [place] [address] Care Team Providers Care Division Operations Manager Name Role Phone Fior Pollack QUEBRACHO TANNER Primary Care Provider [phone] Tyesha Ingram ANP Primary Care Provider [phone] Fior Pollack QUEBRACHO TANNER Primary Care Provider [phone] Encounter Details Date Type Department Care Team ([facility] st Contact Info) Description 06/14/2023 Telephone [facility] [address] [place] [address] Fior Pollack NP [address] [place] [address] Social History Tobacco Use Types Packs/Day Years [...] Description 03/21/2025 3:15 PM EDT Office Visit [facility] [address] [place] [address] Fior Pollack NP [address] [place] [address] documented as of this encounter Visit Diagnoses Not on filedocumented in this encounter Care Teams Division Operations Manager Relationship Specialty Start Date End Date Fior Pollack NP [address] [place] [id number] PCP - General Family Medicine 05/13/23 07/11/23 Tyesha Ingram ANP [address] [place] [id number] PCP - General Family Medicine 07/12/23 07/19/23 Fior Pollack NP [address] [place] [id number] PCP - General Family Medicine 07/20/23 documented as of this encounter
--- OUTSIDE RECORDS SUMMARY | 2024-12-20 13:50 | XMS_ITS | Clinical Summary ---
Author Organization [employer] Address [address] [facility] 7[address] [place] [address] Care Team Providers Care Director Of Quantitative Research Name Role Phone Lukeruel Fior GUERRERO Primary Care Provider [phone] Allergies No known active allergies Medications Blood Pressure Monitoring (Omron 3 Series BP Monitor) device USE TO CHECK BLOOD PRESSURE 04/03/20 22 Active ammonium lactate (Amlactin) 12 % [...] MORNING 48 mL 2 08/20/19 24 Active Tirzepatide-Weigh t Management (Zepbound) 5 MG/0.5ML solution auto-injector Inject 0.5 mL (5 mg) under the skin every 7 (seven) days. 2 mL 12/14/19 25 Active metoprolol tartrate (Lopressor) 25 MG tabletIndications :Essential hypertension Take 1 tablet (25 mg) by mouth 2 times daily. 180 tablet 12/19/19 Active albuterol (ProAir HFA) 108 (90 Base) MCG/ACT inhalerIndication s:Shortness of breath Inhale 2 puffs every 4 (four) hours if needed for wheezing or shortness of breath. 18 g 1 12/19/19 25 Active Tremfya 100 MG/ML solution auto-injectorIndi cations:Psoriasis 10/17/19 Active nystatin (Mycostatin) 862577 UNIT/GM powderIndications :Dermatitis associated with moisture Apply topically 2 times daily. 30 g 1 12/21/19 25 2025 Active Tremfya 100 MG/ML injection 06/20/20 22 2024 Discontinued(M ed list cleanup (will not trigger notification to Pharmacy)) albuterol (ProAir HFA) 108 (90 Base) MCG/ACT inhalerIndication s:Shortness of breath Inhale 2 puffs every 4 (four) hours if needed for wheezing or shortness of breath. 18 g 1 09/01/19 24 2024 Discontinued(R eorder (will not trigger notification to Pharmacy)) Tirzepatide-Weigh t Management 2.5 MG/0.5ML solution auto-injectorIndi cations:Morbid obesity (CMS/HCC) Inject 0.5 mL (2.5 mg) under the skin 1 (one) time per week. 2 mL 10/21/19 25 2024 Discontinued(D ose adjustment) metoprolol tartrate (Lopressor) 25 MG tabletIndications :Essential hypertension Take 1 tablet (25 mg) by mouth 2 times daily. 180 tablet 10/21/19 25 2024 Discontinued(R eorder (will not trigger notification to Pharmacy)) Active Problems Problem Noted Date Diagnosed Date Encounter for Papanicolaou s mear for cervical cancer screening 12/20/2024 Assessment & Plan (12/20/2024 12:33 PM EDT): -pap with HPV in 5 years if today test normal -encouraged to keep upcoming appointment for further breast imaging -reviewed normal vs abnormal perimenopausal bleeding patterns -bone density at age 67 if not sooner Perimenopause 12/20/2024 Assessment & Plan (12/20/2024 12:30 PM EDT): -discussed hormonal changes associated with perimenopause and possible symptoms such as mood swing, hot flashes, vaginal dryness, sleep disturbance -informed menopause is determined as cessation of menses for 12 consecutive months -advised close tracking of menses -discussed importance of optimizing sleep, maintaining healthy diet with sufficient calcium and vitamin D intake, and daily exercise Routine adult health maintenance 11/25/2023 Assessment & [...] visit -skin condition is being managed by Manager Spanish in [facility] paperwork completed and handed to patient at [...] Paxlovid, there's no significant interactions detected in [place] interaction tracker. Use flonase x 5-10d Isolation [...] begin with 20 mins physical activity daily -burr machine operator referral placed Dietary Recommendations discussed: Fruits, vegetables, [...] readings >140/90. -follow-up 3 months Psoriasis 08/10/2017 Assessment & Plan (12/20/2024 12:31 PM EDT): -followed by outside Derm provider -medication list updated Low back pain 08/10/2017 Encounters Date Type Department Care Team Description 12/20/2024 9:00 AM EDT Procedure Visit [facility] [address] [place] [phone] Fior Pollack NP Encounter for Papanicolaou smear for cervical cancer screening (Primary Dx); Skin tag of labia; Dermatitis associated with moisture; Perimenopause; Psoriasis 12/20/2024 Results Follow-Up [facility] [address] [place] [phone] Fior Pollack NP BI Mammogram Screening Tomosynthesis Bilateral 12/20/2024 Travel 12/19/[address] [facility] [address] [place] [address] Fior Pollack NP Chart Prep 12/18/2024 3:30 PM EDT Office Visit [address] [address] Fior Pollack NP Essential hypertension; Shortness of breath 12/18/2024 Travel 12/15/[address] [address] Jonas Slater MA chartprep 12/13/2024 Refill [facility] [address] [place] [address] Fior Pollack NP 11/23/[address] [address] Jonas Slater MA chartprep 10/31/[address] [address] Fior Pollack NP Prior Auth Prescription 10/25/[address] NUTRITION APPT REQUEST 10/20/2024 9:00 AM EDT Office Visit [address] [address] Fior Pollack NP Essential hypertension (Primary Dx); Screening for colon cancer; Morbid obesity (CMS/HCC); Dietary counseling; Exercise counseling; Encounter for screening mammogram for malignant neoplasm of breast; Encounter for immunization; Colon cancer screening 10/20/2024 Orders Only [address] [address] Facundo Carpenter, PharmD 10/13/2024 Telephone [facility] [address] [place] [address] Fior Pollack NP chartprep 10/05/2024 Telephone [facility] [address] [place] [address] Fior Pollack NP chartprep 10/04/2024 Patient Outreach [facility] [address] [place] [address] Fior Pollack NP Pre-visit Planning ([facility] unable to reach [facility]) from Last 3 Months Immunizations Immunization Administration Dates Next Due Influenza Injectable Quadriv [...] Comments Diabetes Father Hyperlipidemia Mother Hypertension Mother Osteoporosis Mother Breast cancer Other Mat and pat [...] Mass Index 52.03 12/20/2024 9:19 AM EDT Plan of Treatment Upcoming Encounters Date Type Department Care Team (Late st Contact Info) Description 03/21/2025 3:15 PM EDT Office Visit [facility] [address] [place], [place] [phone] Fior Pollack NP [address] [place] [address] Health Maintenance Due Date Last Done Comments CT Colonography 1975 Colonoscopy 1975 Colorectal Cancer Screening 1975 FIT DNA/Cologuard 1975 FIT 1975 FOBT 1975 Sigmoidoscopy 1975 Family Planning (PISQ) 1992 Pap Smear 06/15/2016 06/15/2013 Cervical Cancer Screening 06/15/2018 HPV/Cotest 06/15/2018 06/15/2013 DTaP/Tdap/Td Vaccines (1 - Tdap) 06/12/2022 06/11/2022 COVID-19 Vaccine (6 - 2023- season) 2024 08/18/2023, 05/19/2022, 08/18/2021, Additional history exists Influenza Vaccine (#1) 2024 , 05/19/2022, 05/14/2021, Additional history exists Alcohol/Substance Use Screening 10/20/2025 10/20/2024 Depression Screening 10/20/2025 10/20/2024, 10/21/19 25 Diabetes: Hemoglobin A1C 10/20/2025 025, 10/05/2023, 06/11/2022 SDOH Screening 10/20/2025 10/20/2024 Tobacco Screening 12/20/2025 12/20/2024 Mammogram 12/08/2026 12/08/2024, 12/0 12/2022, 10/12/2017 Zoster Vaccines (1 of 2) 2027 Lipid [...] patient's age to complete this topic Meningococcal B Vaccine Aged Out No l onger eligible based on patient's age to complete [...] Procedure Name Priority Date/Time Associated Diagnosis Comments BI MAMMOGRAM SCREENING TOMOSYNTHESIS BILATERAL Routine 12/08/2024 1:15 PM EDT Encounter for screening mammogram for malignant neoplasm of breast ALBUMIN, RANDOM URINE W/CREATININE Routine 10/20/2024 10:10 [...] Routine screening for STI (sexually transmitted infection) HM PAP/HPV Routine 06/15/2013 from Last 3 Months or Most Recently Relevant to Health Maintenance Results * BI Mammogram Screening Tomosynthesis Bilateral (12/08/2024 1:15 PM EDT) Anatomical Region Laterality Modality Breast Bilateral Mammography 12/08/2024 1:15 PM EDT Narrative 12/16/2024 9:03 AM EDT ? [place] [facility] ? [address] ?[place], [place] [address] ?[phone] ? Mammography Report ? Signed ? Patient: Elmore,Haylee I ?MR#: [id number] ?? [id number] ? : 1975 ?Acct:[id number] ? Age/Sex: 49 / F ?ADM Date: 12/08/24 ? Loc: HO.MAMMO ? Attending : Fior Pollack ? Ordering Physician: Fior Pollack ?Results: 0Incomplet ?? e: Needs Additional Imaging Evaluation ? Date of Service: 12/08/24 ?Follow Up: Additional Imagi ?? ng ? Procedure(s): MM tomosynthesis screening BI ?? Accession Number(s): [id number] ? cc: Fior Pollack ? EXAMINATION: ?? MM SCREENING DIGITAL BREAST TOMOSYNTHESIS, BILATERAL ? CLINICAL INFORMATION: ? Screening. Asymptomatic. ? COMPARISON: ?? Mammography: Comparison is made with available priors ? TECHNIQUE: ?? Digital breast mammography with tomosynthesis is performed in both the ?? craniocaudal and mediolateral oblique views along with computer-aided ?? detection (CAD). ? FINDINGS: ?? There are scattered areas of fibroglandular density (ACR BI-RADS breast ?? composition Category b). ?? Right: ?? Focal asymmetry upper outer breast posterior depth. ?? No suspicious calcifications or other abnormal findings. ? Left: ?? There are no significant masses, abnormal calcifications, or other ?? abnormalities. ? MM/MM tomosynthesis screening BI ?? IMPRESSION: ?? Additional imaging is recommended ? ASSESSMENT: ? BI-RADS BI-RADS 0 - Incomplete: Needs additional Imaging. ? RECOMMENDATION: ?? 1. Additional views of the right breast. ?? 2. Targeted ultrasound if warranted after review of the additional ?? views. ?? 3. Radiology department staff will contact the patient for additional ?? imaging. ? Additional Imaging required ? This examination should not preclude the clinical evaluation of a ?? suspicious palpable abnormality. ? This patient's information was entered into a reminder system with a ?? target due date for their next mammogram. ? Electronically signed by: ??Lelia Martinez DO ??12/16/2024 09:00 AM EDT ? Dictated By: ?Lelia Martinez DO ? Signed By: ?<Electronically signed by Lelia Martinez, DO in OV> ? 12/16/24 0900 ? DD/ 1315 ? TD/TT: 12/08/24 1340 ? Habilitation Specialist: ? Procedure Note Julia Jansen - 12/16/2024 [place] [facility] [address] [place] [address] Mammography Report Signed Patient: Haylee Elmore [facility]#: [id number] : 1975Acct:[id number] Age/Sex: 49 / FADM Date: 12/08/24 Loc: HO.MAMMO Attending Dr: Fior Pollack Ordering Physician: Fior PollackResults: 0Incomplet e: Needs Additional Imaging Evaluation Date of Service: 12/08/24Follow Up: Additional Imagi ng Procedure(s): MM tomosynthesis screening BI Accession Number(s): [id number] cc: Fior Pollack EXAMINATION: MM SCREENING DIGITAL BREAST TOMOSYNTHESIS, BILATERAL CLINICAL INFORMATION: Screening. Asymptomatic. COMPARISON: Mammography: Comparison is made with available priors TECHNIQUE: Digital breast mammography with tomosynthesis is performed in both the craniocaudal and mediolateral oblique views along with computer-aided detection (CAD). FINDINGS: There are scattered areas of fibroglandular density (ACR BI-RADS breast composition Category b). Right: Focal asymmetry upper outer breast posterior depth. No suspicious calcifications or other abnormal findings. Left: There are no significant masses, abnormal calcifications, or other abnormalities. MM/MM tomosynthesis screening BI IMPRESSION: Additional imaging is recommended ASSESSMENT: BI-RADS BI-RADS 0 - Incomplete: Needs additional Imaging. RECOMMENDATION: 1. Additional views of the right breast. 2. Targeted ultrasound if warranted after review of the additional views. 3. Radiology department staff will contact the patient for additional imaging. Additional Imaging required This examination should not preclude the clinical evaluation of a suspicious palpable abnormality. This patient's information was entered into a reminder system with a target due date for their next mammogram. Electronically signed by: Lelia Martinez DO 12/16/2024 09:00 AM EDT Dictated By: Lelia Martinez DO Signed By: <Electronically signed by Lelia Martinez DO in OV> 12/16/24 0900 DD/ 1315 TD/TT: 12/08/24 1340 Habilitation Specialist: us Fior Pollack NP IMG BI PROCEDURES Final Result * TSH W/Reflex to FT4 (10/20/2024 10:10 AM EDT) TSH reflex Free T4 1.16 0.32 - 4.0 uIU/mL [facility] Blood Venous blood specimen / Unknown 10/20/2024 10:10 AM EDT 10/20/2024 11:15 AM EDT us Fior Pollack NP LAB BLOOD ORDERABLES Final Resu lt [facility] [address] [place] [phone] * Albumin, Random Urine W/Creatinine (10/20/2024 10:10 AM EDT) Creatinine, Urine 131.37 mg/dL [facility] Microalbumin Urine 8.0 mg/L [facility] Microalbum Creatinine Ratio Ur 6.0 <30 ug/mg cr [facility] Comment:Albumin/Creatinine R atio Reference Ranges: Normal: < 30 ug/mg creatinine Microalbuminuria: 30 - 300 ug/mg creatinineClinical Albuminuria: > 300 ug/mg creatinine Urine (Urine, Random) 10/20/2024 10:10 AM EDT 10/20/2024 11:14 AM EDT [employer] LAB URINE ORDERABLES Final Resu lt Performing Organization Address [facility] Co de Phone Number [facility] [address] [place] [phone] * Hemoglobin A1c (10/20/2024 10:10 AM EDT) Hemoglobin A1c 6.0 <6.0 % [facility] Comment:Hemoglobin A1C Refer ence Range Adults: 4.8 - 6.0 % Non diabetic: < 6.0 % Goal: < 7.0 %Additional Action Suggested: > 8.0 %Note: Hemoglobin A1c results are invalid for patients with abnormal amounts of HbF. Blood transfusions may impact the HbA1c concentration in the patient sample. Estimated Average Glucose 126 mg/dL [facility] Comment:eAG = Estimated ave rage glucose which is %A1C expressed asaverage glucose, using the formula of the D4L-NownsjgRwokefj Glucose study (ADAG), Diabetes Care, Vol.31,#8,2007 Blood Venous blood specimen / Unknown 10/20/2024 10:10 AM EDT 10/20/2024 11:15 AM EDT [employer] LAB BLOOD ORDERABLES Final Resu lt Performing Organization Address [facility] Co de Phone Number [facility] [address] [place] [address] [phone] * (ABNORMAL) Lipid Panel, Standard (10/20/2024 10:10 AM EDT) Triglycerides 147 <150 mg/dL [facility] Comment:Desirable Triglyceri de: less than 150 mg/dLBorderline High Triglyceride 150-199 mg/dLHigh Triglyceride: 200-499 mg/dLVery High Triglyceride: greater than or equal to 5OO mg/dL Cholesterol 190 <200 mg/dL [facility] Comment:Desirable Cholestero l: less than 200 mg/dLBorderline High Cholesterol: 200-239 mg/dLHigh Cholesterol: greater than 239 mg/dL LDL Cholesterol Calculated 104(H) <100 mg/dL [facility] Comment:Desirable LDL: less than 100 mg/dLNear Optimal/Above Optimal LDL: 110- 129 mg/dLBorderline High LDL: 130-159 mg/dLHigh LDL: 160-189 mg/dLVery High LDL: greater than or equal to 190 mg/dL HDL Cholesterol 57 >40 mg/dL [facility] Comment:Desirable HDL: great er than 40 mg/dL Note: This HDL assay may give artificially low results in patients with liver disease. Blood Venous blood specimen / Unknown 10/20/2024 10:10 AM EDT 10/20/2024 11:15 AM EDT us Fior Pollack [employer] MECH[employer] LAB BLOOD ORDERABLES Final Resu lt [facility] [address] [place] [address] [phone] * (ABNORMAL) Basic Metabolic Panel (10/20/2024 10:10 AM EDT) Sodium 141 135 - 145 mmol/L [facility] Potassium 4.1 3.3 - 5.1 mmol/L [facility] Chloride 108 96 - 108 mmol/L [facility] Carbon Dioxide 26 22 - 29 mmol/L [facility] Anion Gap 11(L) 12 - 20 [facility] Urea Nitrogen (BUN) 9 9 - 16 mg/dL [facility] Creatinine, Serum 0.57 0.5 - 1.4 mg/dL [facility] Estimated Glomerular Filt Rate >60 [facility] Comment:Chronic Kidney Disea se: Estimated GFR < 60 mL/min/1.19a2Sturuu Kidney Disease: Estimated GFR < 15 mL/min/1.73m2 Glucose 89 60 - 115 mg/dL [facility] Calcium 9.3 8.4 - 10.2 mg/dL [facility] Blood Venous blood specimen / Unknown 10/20/2024 10:10 AM EDT 10/20/2024 11:15 AM EDT [facility] LAB BLOOD ORDERABLES Final Resu lt Performing Organization Address [facility] Co de Phone Number [facility] [address] [place] [phone] * Hepatitis C Antibody with Reflex to HCV, RNA, Quantitative, Real-Time PCR (10/05/2023 11:59 AM EST) Hepatitis C Antibody Nonreactive Nonreactive [facility] Comment:Antibodies to HCV no t detected; does not exclude early acuteHCV infection. Blood Venous blood specimen / Unknown 10/05/2023 11:59 AM EST 10/05/2023 1:09 PM EST [facility] LAB BLOOD ORDERABLES Final Resu lt Performing Organization Address [facility] Co de Phone Number [facility] [address] [place] [phone] * HIV-1/2 Antigen and Antibodies, Fourth Generation, with Reflexes (10/05/2023 11:59 AM EST) HIV AB/AG Nonreactive Nonreactive [facility] Comment:HIV-1 p24 Ag and/or HIV-1/HIV-2 Ab not detected.A test result that is nonreactive does not exclude thepossibility of exposure to or infection with HIV-1 and/orHIV-2. Nonreactive results in this assay for individualswith prior exposure to HIV-1 and/or HIV-2 may be due toantigen and antibody levels that are below the limit ofdetection of this assay.The [employer] HIV Ag/Ab Combo assay result andsupplemental assay results should be interpreted inconjunction with the patient's clinical presentation,history and other laboratory results. If the results areinconsistent with clinical evidence, additional testing issuggested to confirm the result. Blood Venous blood specimen / Unknown 10/05/2023 11:59 AM EST 10/05/2023 1:09 PM EST Fior Pollack NP LAB BLOOD ORDERABLES Final Resu lt [facility] [address] [place] [phone] * Pap Smear (06/15/2013) Pap Negative for intraephithelial lesion or malignancy Negative for intraephithelial lesion or malignancy, Other Comment:NILM HPV Not Detected Undetected, Indeterminate, Quantitative, Not Detected Comment:Negative Historical Provider HEALTH MAINTENANCE Final Result from Last 3 Months or Most Recently Relevant to Health Maintenance Insurance [facility] < [address] [place] [id number] Care Teams Director Of Quantitative Research Relationship Specialty Start Date End Date Fior Pollack NP [address] [place], [place] [phone] PCP - General Family Medicine 07/20/23
--- OUTSIDE RECORDS SUMMARY | 2024-12-20 13:50 | XMS_ITS | Encounter Summary ---
Author Organization [employer] Address [address] [facility] [address] [place] [address] Care Team Providers Care Fitter And Turner Name Role Phone Fior Pollack GUERRERO Primary Care Provider [phone] Encounter Details Date Type Department Care Team (Late st Contact Info) Description 10/20/2024 Orders Only [facility] [address] [place] [address] Facundo Carpenter, YeisonD [address] [place] [address] Social History Tobacco Use Types Packs/Day Years [...] AM EDT documented as of this encounter Functional Status * Over the past 2 weeks, how often have you been bothered by any of the following problems? Question Answer Date of Assessment Author Patient Health Questionnaire -2 Score 1 10/20/2024 9:56 AM EDT Jonas Slater MA * Little interest or pleasure in doing things Answer Date of Assessment Author Several days 10/20/2024 9:56 AM EDT Jonas Slater MA * Feeling down, depressed, or hopeless Answer Date of Assessment Author Not at all 10/20/2024 9:56 AM RAADT Jonas Slater MA * Trouble falling or staying asleep, or sleeping too much Answer Date of Assessment Author Not at all 10/20/2024 9:56 AM RAADT Jonas Slater MA * Feeling tired or having little energy Answer Date of Assessment Author Not at all 10/20/2024 9:56 AM RAADT Jonas Slater MA * Poor appetite or overeating Answer Date of Assessment Author Not at all 10/20/2024 9:56 AM EDT Jonas Slater MA * Feeling bad about yourself - or that you are a failure or have let yourself or your family down Answer Date of Assessment Author Not at all 10/20/2024 9:56 AM Jonas Dunne MA * Trouble concentrating on things, such as reading the newspaper or watching television Answer Date of Assessment Author Not at all 10/20/2024 9:56 AM Jonas Dunne MA * Moving or speaking so slowly that other people could have noticed? Or the opposite - being so fidgety or restless that you have been moving around a lot more than usual. Answer Date of Assessment Author Not at all 10/20/2024 9:56 AM Jonas Dunne MA * Thoughts that you would be better off or hurting yourself in some way Answer Date of Assessment Author Not at all 10/20/2024 9:56 AM Jonas Dunne MA * Patient Health Questionnaire-9 Score Answer Date of Assessment Author 1 10/20/2024 9:56 AM Jonas Dunne MA * How difficult have these problems made it for you to do your work, take care of things at home, or get along with other people? Answer Date of Assessment Author Not difficult at all 10/20/2024 9:56 AM Jonas Deleon MA * Over the last 2 weeks, how often have you been bothered by any of the following problems? Question Answer Date of Assessment Author Feeling nervous, anxious, or on edge 0 10/20/2024 9:56 AM Jonas Dunne MA Not being able to stop or co ntrol worrying 0 10/20/2024 9:56 AM RAADT Jonas Slater MA Worrying too much about diff erent things 0 10/20/2024 9:56 AM RAADT Jonas Slater MA Trouble relaxing 0 10/20/2024 9:56 AM EDT Jonas Sweeney MA Being so restless that it is hard to sit still 0 10/20/2024 9:56 AM Jonas Dunne MA Becoming easily annoyed or irritable 0 10/20/2024 9:56 AM RAADT Jonas Slater MA Feeling afraid as if somethi ng awful might happen 0 10/20/2024 9:56 AM EDT Jonas Slater MA ANUP-7 Total Score 0 10/20/2024 9:56 AM EDT Jonas Slater MA documented as of this encounter Plan of Treatment Upcoming Encounters Date Type Department Care Team (Late st Contact Info) Description 03/21/2025 3:15 PM EDT Office Visit [facility] [address] [place] [address] Fior Pollack NP [address] [place] [address] documented as of this encounter Visit Diagnoses Not on filedocumented in this encounter Additional Health Concerns Assessment Noted Time PHQ-9 Depression Total Score: 1 10/21/19 25 9:56 AM EDT documented as of this encounter Care Teams Fitter And Turner Relationship Specialty Start Date End Date Fior Pollack NP [address] [place] [address] PCP - General Family Medicine 07/20/23 documented as of this encounter
--- OUTSIDE RECORDS SUMMARY | 2024-12-20 13:51 | XMS_ITS | Encounter Summary ---
Author Organization [employer] Address [address] [facility] 7t [place] [address] Care Team Providers Care Unit Nurse Name Role Phone Fior Pollack STEEL FINISHER Primary Care Provider [phone] Tyesha Ingram ANP Primary Care Provider [phone] Fior Pollack STEEL FINISHER Primary Care Provider [phone] Reason for Visit * Reason Comments Med Refill Encounter Details Date Type Department Care Team (Late st Contact Info) Description 06/21/2023 Refill [facility] [address] [place] [address] Lety Bronson MD [address] [place] [address] Shortness of breath Social History Tobacco Use [...] t he electric, gas, oil or water [employer] threatened to shut off services in your [...] Description 03/21/2025 3:15 PM EDT Office Visit [facility] MEDICINE [address] [place] [address] Fior Pollack NP [address] [place] [address] documented as of this encounter Visit Diagnoses Diagnosis Shortness of breath documented in this encounter Care Teams Unit Nurse Relationship Specialty Start Date End Date Fior Pollack NP [address] [place] [address] PCP - General Family Medicine 05/13/23 07/11/23 Tyesha Inrgam ANP [address] [place] [id number] PCP - General Family Medicine 07/12/23 07/19/23 Fior Pollack NP [address] [place] [address] PCP - General Family Medicine 07/20/23 documented as of this encounter
--- OUTSIDE RECORDS SUMMARY | 2024-12-20 13:51 | XMS_ITS | Encounter Summary ---
Author Organization [employer] Address [address] [facility] 7t [place] [address] Care Team Providers Care Ignition Mechanic Name Role Phone Fior Pollack GUERRERO Primary Care Provider [phone] Reason for Visit * Reason Comments Med Refill Encounter Details Date Type Department Care Team ([facility] st Contact Info) Description 08/05/2023 Refill [facility] [address] [place] [address] Lety Bronson MD [address] [place] [address] COVID-19 Social History Tobacco Use Types Packs/Day [...] Description 03/21/2025 3:15 PM EDT Office Visit [facility] MEDICINE [address] [place] [address] Fior Pollack NP [address] [place] [address] documented as of this encounter Visit Diagnoses Diagnosis COVID-19 documented in this encounter Care Teams Ignition Mechanic Relationship Specialty Start Date End Date Fior Pollack NP [address] [place] [address] PCP - General Family Medicine 07/20/23 documented as of this encounter
--- OUTSIDE RECORDS SUMMARY | 2024-12-20 13:51 | XMS_ITS | Encounter Summary ---
Author Organization [employer] Address [address] [facility] 7t [place] [address] Care Team Providers Care Fire Fighters Dispatcher Name Role Phone Fior Pollack NP Primary Care Provider [phone] Reason for Visit * Reason Comments Follow-up Encounter Details Date Type Department Care Team ([facility] st Contact Info) Description 12/18/2024 3:30 PM EDT Office Visit [facility] MEDICINE [address] [place] [address] Fior Pollack NP [address] [place] [address] Essential hypertension; Shortness of breath Social History Tobacco Use [...] Sign Reading Time Taken Comments Blood Pressure 134/80 12/18/2024 4:24 PM EDT Pulse 86 12/18/2024 3:35 PM EDT Temperature 36.6 ??C (97.9 ??F) 12/18/2024 3:35 PM ED T Respiratory Rate 20 12/18/2024 3:35 PM EDT Oxygen Saturation 97% 12/18/2024 3:35 PM EDT Inhaled Oxygen Concentration - - Weight 151 kg (332 lb) 12/18/2024 3:35 PM EDT Height 170.2 cm (5' 7 ) 12/18/2024 3:35 PM EDT Body Mass Index 52 12/18/2024 3:35 PM EDT documented in this encounter Plan of Treatment Upcoming Encounters Date Type Department Care Team (Late st Contact Info) Description 03/21/2025 3:15 PM EDT Office Visit [facility] MEDICINE [address] [place] [address] Fior Pollack NP [address] [place] [address] documented as of this encounter Visit Diagnoses Diagnosis Essential hypertension Unspecified essential hypertension Shortness of breath documented in this encounter Additional Health Concerns Assessment Noted Time PHQ-9 Depression Total Score: 1 10/21/19 25 9:56 AM EDT documented as of this encounter Care Teams Fire Fighters Dispatcher Relationship Specialty Start Date End Date Fior Pollack NP [address] [place] [address] PCP - General Family Medicine 07/20/23 documented as of this encounter
--- OUTSIDE RECORDS SUMMARY | 2024-12-20 13:51 | XMS_ITS | Encounter Summary ---
Author Organization [employer] Address [address] [facility] 7t [place] [address] Care Team Providers Care Auto Tune Up Mechanic Name Role Phone Fior Pollack NP Primary Care Provider [phone] Encounter Details Date Type Department Care Team (Late st Contact Info) Description 11/02/2023 Orders Only [facility] MEDICINE [address] [place] [address] Fior Pollack NP [address] [place] [address] Colon cancer screening (Primary Dx) Social History [...] Description 03/21/2025 3:15 PM EDT Office Visit [facility] MEDICINE [address] [place] [address] Fior Pollack NP [address] [place] [address] documented as of this encounter Visit Diagnoses Diagnosis Colon cancer screening- Primary Special screening for malignant neoplasms, colon documented in this encounter Additional Health Concerns Assessment Noted Time PHQ-9 Depression Total Score: 0 09/01/19 24 2:35 PM EST documented as of this encounter Care Teams Auto Tune Up Mechanic Relationship Specialty Start Date End Date Fior Pollack NP [address] [place] [address] PCP - General Family Medicine 07/20/23 documented as of this encounter
--- OUTSIDE RECORDS SUMMARY | 2024-12-20 13:51 | XMS_ITS | Encounter Summary ---
Author Organization [employer] Address [address] [facility] 7t [place] [address] Care Team Providers Care Flight Line Service Attendant Name Role Phone Fior Pollack NP Primary Care Provider [phone] Reason for Visit * Reason Onset Date Comments Chart Prep 12/19/2024 Encounter Details Date Type Department Care Team ([facility] Contact Info) Description 12/19/2024 Telephone [facility] MEDICINE [address] [place] [address] Fior Pollack NP [address] [place] [address] Chart Prep Social History Tobacco Use Types Packs/Day Years [...] encounter Miscellaneous Notes * Telephone Encounter - Georgette Raya [place] - 12/19/2024 10:13 AM EDT Chart Prep Labs: done Images: done Referrals: complete Vaccines due: Covid, Flu, and Tdap Screenings: colonoscopy and HPV/Cotest. Overdue care gaps: Oral health screening and Disability screen documented in this encounter Plan of Treatment Upcoming Encounters Date Type Department Care Team (Late st Contact Info) Description 03/21/2025 3:15 PM EDT Office Visit [facility] MEDICINE [address] [place] [address] Fior Pollack NP [address] [place] [address] documented as of this encounter Visit Diagnoses Not on filedocumented in this encounter Additional Health Concerns Assessment Noted Time PHQ-9 Depression Total Score: 1 10/21/19 25 9:56 AM EDT documented as of this encounter Care Teams Flight Line Service Attendant Relationship Specialty Start Date End Date Fior Pollack NP [address] [place] [address] PCP - General Family Medicine 07/20/23 documented as of this encounter
--- OUTSIDE RECORDS SUMMARY | 2024-12-20 13:51 | XMS_ITS | Encounter Summary ---
Author Organization [employer] Address [address] [facility] [address] 7[address] [place] [address] Care Team Providers Care Textile Scrap Salvager Name Role Phone Fior Pollack GUERRERO Primary Care Provider [phone] Reason for Visit * Reason Onset Date Comments chartprep 12/15/2024 Encounter Details Date Type Department Care Team ([facility] st Contact Info) Description 12/15/2024 Telephone [facility] MEDICINE [address] [place] [address] Jonas Slater MA chartprep Social History Tobacco Use Types Packs/Day [...] your housing situation today? I have katarina eugenia 10/20/[address] you li [...] encounter Miscellaneous Notes * Telephone Encounter - oJnas Slater [place] - 12/15/2024 2:17 PM EDT Chart Prep Labs: done except cologuard screening Images: done except mammogram Referrals: complete waitng for mammogram be done Vaccines due: Covid, Flu, and Tdap Screenings: colonoscopy and pap smear Overdue care gaps: Oral health screening and Disability screen documented in this encounter Plan of Treatment Upcoming Encounters Date Type Department Care Team (Late st Contact Info) Description 03/21/2025 3:15 PM EDT Office Visit [facility] MEDICINE [address] [place] [address] Fior Pollack NP [address] [place] [address] documented as of this encounter Visit Diagnoses Not on filedocumented in this encounter Additional Health Concerns Assessment Noted Time PHQ-9 Depression Total Score: 1 10/21/19 25 9:56 AM EDT documented as of this encounter Care Teams Textile Scrap Salvager Relationship Specialty Start Date End Date Fior Pollack NP [address] [place] [address] PCP - General Family Medicine 07/20/23 documented as of this encounter
--- OUTSIDE RECORDS SUMMARY | 2024-12-20 13:51 | XMS_ITS | Encounter Summary ---
Author Organization [employer] Address [address] [facility] [address] 7[address] [place] [address] Care Team Providers Care Gas Main Fitter Name Role Phone Fior Pollack GUERRERO Primary Care Provider [phone] Encounter Details Date Type Department Care Team (Latest Contact Info) Description 12/18/2024 Travel Social History Tobacco Use Types Packs/Day [...] Description 03/21/2025 3:15 PM EDT Office Visit [facility] MEDICINE [address] [place] [address] Fior Pollack NP [address] [place] [address] documented as of this encounter Visit Diagnoses Not on filedocumented in this encounter Additional Health Concerns Assessment Noted Time PHQ-9 Depression Total Score: 1 10/21/19 25 9:56 AM EDT documented as of this encounter Care Teams Gas Main Fitter Relationship Specialty Start Date End Date Fior Pollack NP [address] [place] [address] PCP - General Family Medicine 07/20/23 documented as of this encounter
[2024-12-27 08:02] LABS: HPV Genotype 16 Negative (Negative); HPV Genotype 18 Negative (Negative); HPV High Risk Negative (Negative)
== END 2024-12-20 13:49 | disposition home or self-care (01) ==
LOC: HO.HHCLNP 13:48
PROVIDERS: Visit Provider Nurse Practitioner
DX: Z12.4 Encounter for screening for malignant neoplasm of cervix (principal)
CPT/HCPCS: 87626; 88175

== ENCOUNTER 2024-12-26 11:09 | Outpatient (REF) | payer OTHER, SELFPAY ==
--- NOTE | ~2024-12-26 | MM_ITS ---
EXAMINATION: MM DIAGNOSTIC DIGITAL BREAST TOMOSYNTHESIS, RIGHT Limited right breast ultrasound. CLINICAL INFORMATION: Recommend screening for oval mass in the upper outer right breast. COMPARISON: Mammography: [facility] on PACS. TECHNIQUE: Digital breast tomosynthesis is performed in both the craniocaudal and mediolateral oblique views along with computer-aided detection (CAD). Synthesized 2D images are generated from the tomosynthesis. FINDINGS: There are scattered areas of fibroglandular density (ACR BI-RADS breast composition Category b). Circumscribed oval mass in the upper outer breast persist on additional imaging projections. No suspicious calcifications or other abnormal findings. Targeted color Doppler ultrasound scanning in the upper outer quadrant demonstrates a hypoechoic oval circumscribed probable minimally complicated cyst at 9:00 12 cm from the nipple versus solid mass measuring 12 x 9 x 10 mm. There is no internal vascular flow. MM/MM tomosynthesis added views R IMPRESSION: Hypoechoic oval minimally complicated cyst versus solid mass at 9:00 4 cm from the nipple. Recommend 6 month follow-up ultrasound to demonstrate further evaluation of stability. ASSESSMENT: BI-RADS BI-RADS 3 - Probably benign finding(s) - 6 month follow-up suggested RECOMMENDATION: 6 Month F/U Results were provided to the patient at time of visit by the technologist. This patient's information was entered into a reminder system with a target due date for their next mammogram. Electronically signed by: Lelia Martinez DO 12/26/2024 12:16 PM EDT
--- OUTSIDE RECORDS SUMMARY | 2024-12-26 12:27 | XMS_ITS | Encounter Summary ---
Author Organization [employer] Address [address] [facility] 7t [place] [address] Care Team Providers Care Raise Miner Name Role Phone Fior Pollack NP Primary Care Provider [phone] Encounter Details Date Type Department Care Team (Late st Contact Info) Description 11/02/2023 Orders Only [facility] MEDICINE [address] [place] [address] Fior Pollack NP [address] [place] [address] Colon cancer screening (Primary Dx) Social History [...] 3:15 PM EDT Office Visit [facility] MEDICINE [address] [place] [address] Fior Pollack NP [address] [place] [address] documented as of this encounter Visit Diagnoses Diagnosis Colon cancer screening- Primary Special screening for malignant neoplasms, colon documented in this encounter Additional Health Concerns Assessment Noted Time PHQ-9 Depression Total Score: 0 09/01/19 24 2:35 PM EST documented as of this encounter Care Teams Raise Miner Relationship Specialty Start Date End Date Fior Pollack NP [address] [place] [address] PCP - General Family Medicine 07/20/23 documented as of this encounter
--- OUTSIDE RECORDS SUMMARY | 2024-12-26 12:27 | XMS_ITS | Clinical Summary ---
Author Organization [employer] Address [address] [facility] 7t [place] [address] Care Team Providers Care Ordnance Mechanic Name Role Phone Lukeruel Fior MASTERS Primary Care Provider [phone] Allergies No known active allergies Medications Blood [...] solution auto-injectorIndi cations:Psoriasis 10/17/19 Active nystatin (Mycostatin) 256000 UNIT/GM powderIndications :Dermatitis associated with moisture Apply [...] visit -skin condition is being managed by Supervisor Slashing Department in [facility] paperwork completed and handed to [...] Paxlovid, there's no significant interactions detected in [place] interaction tracker. Use flonase x 5-10d Isolation [...] begin with 20 mins physical activity daily -server engineer referral placed Dietary Recommendations discussed: Fruits, vegetables, [...] Encounters Date Type Department Care Team Description 12/26/2024 Orders Only [facility] [address] [place] [address] Fior Pollack NP 12/22/2024 Telephone [facility] [address] [place] [address] Fior Pollack NP Durable Medical Equipment 12/20/2024 9:00 AM EDT Procedure Visit [address] [address] Fior Pollack NP Encounter for Papanicolaou smear for cervical cancer screening (Primary Dx); Skin tag of labia; Dermatitis associated with moisture; Perimenopause; Psoriasis 12/20/2024 Results Follow-Up [address] [address] Fior Pollack NP BI Mammogram Screening Tomosynthesis Bilateral 12/20/2024 Travel 12/19/[address] [address] Fior Pollack NP Chart Prep 12/18/2024 3:30 PM EDT Office Visit [address] [address] Fior Pollack NP Essential hypertension; Shortness of breath 12/18/2024 Travel 12/15/[address] [address] Jonas Slater MA chartprep 12/13/2024 Refill [facility] [address] [place] [address] Fior Pollack NP 11/23/[address] [address] Jonas Slater MA chartprep 10/31/[address] [address] Fior Pollack NP Prior Auth Prescription 10/25/[address] NUTRITION APPT REQUEST 10/20/2024 9:00 AM EDT Office Visit [address] [address] Fior Pollack NP Essential hypertension (Primary Dx); Screening for colon cancer; Morbid obesity (CMS/HCC); Dietary counseling; Exercise counseling; Encounter for screening mammogram for malignant neoplasm of breast; Encounter for immunization; Colon cancer screening 10/20/2024 Orders Only [address] [address] Facundo Carpenter, PharmD 10/13/2024 Telephone [facility] [address] [place] [address] Fior Pollack NP chartprep 10/05/2024 Telephone [facility] [address] [place] [address] Fior Pollack NP chartprep 10/04/2024 Patient Outreach [facility] [address] [place] [address] Fior Pollack NP Pre-visit Planning ([facility] unable to reach LVM) from Last 3 Months Immunizations Immunization Administration [...] 3:15 PM EDT Office Visit [facility] [address] [place] [address] Fior Pollack NP [address] [place] [address] Health Maintenance Due Date Last Done Comments [...] 025, 10/05/2023, 06/11/2022 SDOH Screening 10/20/2025 10/20/2024 Disability Screening 12/20/2025 12/20/2024 Tobacco Screening 12/20/2025 12/20/2024 Mammogram 12/08/2026 12/08/2024, [...] Priority Date/Time Associated Diagnosis Comments BI MAMMOGRAM DIAGNOSTIC TOMOSYNTHESIS ADDED VIEW RIGHT Routine 12/26/2024 11:15 AM EDT BI MAMMOGRAM SCREENING TOMOSYNTHESIS BILATERAL Routine 12/08/2024 [...] to Health Maintenance Results * BI Mammogram Diagnostic Tomosynthesis added right (12/26/2024 11:15 AM EDT) Anatomical Region Laterality Modality Breast Left Mammography 12/26/2024 11:1 5 AM EDT Narrative 12/26/2024 12:20 PM EDT ? [facility] ? [address] ?[place] [address] ?[phone] ? Mammography Report ? Signed ? Patient: Haylee Elmore I ?MR#: [id number] ?? 8064 ? : 1975 ?Acct:[id number] ? Age/Sex: 49 / F ?ADM Date: 12/26/24 ? Loc: HO.MAMMO ? Attending Dr: Fior Appram ? Ordering Physician: Appraruel,Fior ?Results: 3.6MProbab ?? ly Benign Finding - Short 6 M F/U Suggested ? Date of Service: 12/26/24 ?Follow Up: 6 Month F/U ? Procedure(s): MM tomosynthesis added views R ?? Accession Number(s): [id number] ? cc: Fior Pollack ? EXAMINATION: ?? MM DIAGNOSTIC DIGITAL BREAST TOMOSYNTHESIS, RIGHT ?? Limited right breast ultrasound. ? CLINICAL INFORMATION: ? Recommend screening for oval mass in the upper outer right breast. ? COMPARISON: ?? Mammography: [facility] on PACS. ? TECHNIQUE: ?? Digital breast tomosynthesis is performed in both the craniocaudal and ?? mediolateral oblique views along with computer-aided detection (CAD). ?? Synthesized 2D images are generated from the tomosynthesis. ? FINDINGS: ?? There are scattered areas of fibroglandular density (ACR BI-RADS breast ?? composition Category b). ?? Circumscribed oval mass in the upper outer breast persist on additional ?? imaging projections. ?? No suspicious calcifications or other abnormal findings. ? Targeted color Doppler ultrasound scanning in the upper outer quadrant ?? demonstrates a hypoechoic oval circumscribed probable minimally ?? complicated cyst at 9:00 12 cm from the nipple versus solid mass ?? measuring 12 x 9 x 10 mm. There is no internal vascular flow. ? MM/MM tomosynthesis added views R ?? IMPRESSION: ?? Hypoechoic oval minimally complicated cyst versus solid mass at 9:00 4 ?? cm from the nipple. Recommend 6 month follow-up ultrasound to ?? demonstrate further evaluation of stability. ? ASSESSMENT: ? BI-RADS BI-RADS 3 - Probably benign finding(s) - 6 month follow-up ?? suggested ? RECOMMENDATION: ?? 6 Month F/U ? Results were provided to the patient at time of visit by the ?? technologist. ? This patient's information was entered into a reminder system with a ?? target due date for their next mammogram. ? Electronically signed by: ??Lelia Martinez DO ??12/26/2024 12:16 PM EDT ?? RP ? Dictated By: ?Lelia Martinez DO ? Signed By: ?<Electronically signed by Lelia Martinez, DO in OV> ? 12/26/24 1216 ? DD/ 1115 ? TD/TT: 12/26/24 1135 ? Mold Yard Worker: ? Procedure Note Inderjit Image - 12/26/2024 [facility] [address] [place], [place] [address] Mammography Report Signed Patient: Haylee Elmore IMR#: [id number] : 1975Acct:[id number] Age/Sex: 49 / FADM Date: 12/26/24 Loc: HO.MAMMO Attending Dr: Fior Pollack Ordering Physician: Fior PollackResults: 3.6MProbab ly Benign Finding - Short 6 M F/U Suggested Date of Service: 12/26/24Follow Up: 6 Month F/U Procedure(s): MM tomosynthesis added views R Accession Number(s): [id number] cc: Fior oPllack EXAMINATION: MM DIAGNOSTIC DIGITAL BREAST TOMOSYNTHESIS, RIGHT Limited right breast ultrasound. CLINICAL INFORMATION: Recommend screening for oval mass in the upper outer right breast. COMPARISON: Mammography: [facility] on PACS. TECHNIQUE: Digital breast tomosynthesis is performed in both the craniocaudal and mediolateral oblique views along with computer-aided detection (CAD). Synthesized 2D images are generated from the tomosynthesis. FINDINGS: There are scattered areas of fibroglandular density (ACR BI-RADS breast composition Category b). Circumscribed oval mass in the upper outer breast persist on additional imaging projections. No suspicious calcifications or other abnormal findings. Targeted color Doppler ultrasound scanning in the upper outer quadrant demonstrates a hypoechoic oval circumscribed probable minimally complicated cyst at 9:00 12 cm from the nipple versus solid mass measuring 12 x 9 x 10 mm. There is no internal vascular flow. MM/MM tomosynthesis added views R IMPRESSION: Hypoechoic oval minimally complicated cyst versus solid mass at 9:00 4 cm from the nipple. Recommend 6 month follow-up ultrasound to demonstrate further evaluation of stability. ASSESSMENT: BI-RADS BI-RADS 3 - Probably benign finding(s) - 6 month follow-up suggested RECOMMENDATION: 6 Month F/U Results were provided to the patient at time of visit by the technologist. This patient's information was entered into a reminder system with a target due date for their next mammogram. Electronically signed by: Lelia Martinez DO 12/26/2024 12:16 PM EDT RP Dictated By: Lelia Martinez DO Signed By: <Electronically signed by Lelia Martinez DO in OV> 12/26/24 1216 DD/ 1115 TD/TT: 12/26/24 1135 Mold Yard Worker: us Fior Pollack INDUSTRIAL PLANT CUSTODIAN IMG BI PROCEDURES Final Result * BI Mammogram Screening Tomosynthesis Bilateral (12/08/2024 1:15 PM EDT) Anatomical Region Laterality Modality Breast Bilateral Mammography 12/08/2024 1:15 PM EDT Narrative 12/16/2024 9:03 AM EDT ? [facility] ? [address] ?[place] [address] ?[phone] ? Mammography Report ? Signed ? Patient: Haylee Elmore I ?MR#: [id number] ?? 8064 ? : 1975 ?Acct:[id number] ? Age/Sex: 49 / F ?ADM Date: // ? Loc: HO.MAMMO ? Attending Dr: Fior Appram ? Ordering Physician: Appram,Fior ?Results: 0Incomplet ?? e: Needs Additional Imaging Evaluation ? Date of Service: // ?Follow Up: Additional Imagi ?? ng ? Procedure(s): MM tomosynthesis screening BI ?? Accession Number(s): [id number] ? cc: Fior Pollack ? EXAMINATION: ?? [...] ??Lelia Martinez DO ??12/16/2024 09:00 AM EDT ?? RP ? Dictated By: ?Lelia Martinez DO ? Signed By: ?<Electronically signed by Lelia Martinez, DO in OV> ? 12/16/24 0900 ? DD/ 1315 ? TD/TT: 12/08/24 1340 ? Mold Yard Worker: ? Procedure Note Julia Jansen - 12/16/2024 [place] [facility] [address] [place], [place] [address] Mammography Report Signed Patient: Haylee Elmore [facility]#: [id number] : 1975Acct:[id number] Age/Sex: 49 / FADM Date: 12/08/24 Loc: HO.MAMMO Attending Dr: Fior Pollack Ordering Physician: Fior PollackResults: 0Incomplet e: Needs Additional Imaging Evaluation Date of Service: 12/08/24Follow Up: Additional Imagi ng Procedure(s): MM tomosynthesis screening BI Accession Number(s): [id number] cc: Fior Pollack EXAMINATION: MM SCREENING DIGITAL [...] 12/16/24 0900 DD/ 1315 TD/TT: 12/08/24 1340 Mold Yard Worker: us Fior Pollack INDUSTRIAL PLANT CUSTODIAN IMG BI PROCEDURES Final Result * TSH W/Reflex to FT4 (10/20/2024 10:10 AM EDT) TSH reflex Free T4 1.16 0.32 - 4.0 uIU/mL [facility] Blood Venous blood specimen / Unknown 10/20/2024 10:10 AM EDT 10/20/2024 11:15 AM EDT [facility] [employer] LAB BLOOD ORDERABLES Final Resu lt Performing Organization Address [facility] Co de Phone Number [facility] [address] [place] [phone] * Albumin, Random Urine W/Creatinine (10/20/2024 10:10 AM EDT) Creatinine, Urine 131.37 mg/dL [facility] Microalbumin Urine 8.0 mg/L [facility] Microalbum Creatinine Ratio Ur 6.0 <30 ug/mg cr [facility] Comment:Albumin/Creatinine R atio Reference Ranges: Normal: < 30 ug/mg creatinine Microalbuminuria: 30 - 300 ug/mg creatinineClinical Albuminuria: > 300 ug/mg creatinine Urine (Urine, Random) 10/20/2024 10:10 AM EDT 10/20/2024 11:14 AM EDT [facility] [employer] C[employer]IAN LAB URINE ORDERABLES Final Resu lt Performing Organization Address [facility] de Phone Number [facility] [address] [place] [phone] * Hemoglobin A1c (10/20/2024 10:10 AM EDT) Hemoglobin A1c 6.0 <6.0 % [facility] Comment:Hemoglobin A1C Refer ence Range Adults: 4.8 - 6.0 % Non diabetic: < 6.0 % Goal: < 7.0 %Additional Action Suggested: > 8.0 %Note: Hemoglobin A1c results are invalid for patients with abnormal amounts of HbF. Blood transfusions may impact the HbA1c concentration in the patient sample. Estimated Average Glucose 126 mg/dL [facility] Comment:eAG = Estimated ave rage glucose which is %A1C expressed asaverage glucose, using the formula of the R9J-RarksskNyowxqf Glucose study (ADAG), Diabetes Care, Vol.31,#8,Mar. 2007 Blood Venous blood specimen / Unknown 10/20/2024 10:10 AM EDT 10/20/2024 11:15 AM EDT Fior Butler INDUST[employer]AL [employer]ANT CUSTODIAN LAB BLOOD ORDERABLES Final Resu lt Performing Organization Address [facility] Co de Phone Number [facility] [address] [place] [address] [phone] * (ABNORMAL) Lipid Panel, Standard (10/20/2024 10:10 AM EDT) Triglycerides 147 <150 mg/dL [facility] Comment:Desirable Triglyceri de: less than 150 mg/dLBorderline High Triglyceride 150-199 mg/dLHigh Triglyceride: 200-499 mg/dLVery High Triglyceride: greater than or equal to 5OO mg/dL Cholesterol 190 <200 mg/dL [facility] Comment:Desirable Cholestero l: less than 200 mg/dLBorderline High Cholesterol: 200-239 mg/dLHigh Cholesterol: greater than 239 mg/dL LDL Cholesterol Calculated 104(H) <100 mg/dL [facility] Comment:Desirable LDL: less than 100 mg/dLNear Optimal/Above Optimal LDL: 110- 129 mg/dLBorderline High LDL: 130-159 mg/dLHigh LDL: 160-189 mg/dLVery High LDL: greater than or equal to 190 mg/dL HDL Cholesterol 57 >40 mg/dL [facility] Comment:Desirable HDL: great er than 40 mg/dL Note: This HDL assay may give artificially low results in patients with liver disease. Blood Venous blood specimen / Unknown 10/20/2024 10:10 AM EDT 10/20/2024 11:15 AM EDT Fior Butler [employer] CUSTODIAN LAB BLOOD ORDERABLES Final Resu lt Performing Organization Address [facility]/ZIP Co de Phone Number [facility] [address] [place] [address] [phone] * (ABNORMAL) Basic Metabolic Panel (10/20/2024 10:10 AM EDT) Sodium 141 135 - 145 mmol/L [facility] Potassium 4.1 3.3 - 5.1 mmol/L [facility] Chloride 108 96 - 108 mmol/L [facility] Carbon Dioxide 26 22 - 29 mmol/L [facility] Anion Gap 11(L) 12 - 20 [facility] Urea Nitrogen (BUN) 9 9 - 16 mg/dL [facility] Creatinine, Serum 0.57 0.5 - 1.4 mg/dL [facility] Estimated Glomerular Filt Rate >60 [facility] Comment:Chronic Kidney Disea se: Estimated GFR < 60 mL/min/1.41u0Vjepqm Kidney Disease: Estimated GFR < 15 mL/min/1.73m2 Glucose 89 60 - 115 mg/dL [facility] Calcium 9.3 8.4 - 10.2 mg/dL [facility] Blood Venous blood specimen / Unknown 10/20/2024 10:10 AM EDT 10/20/2024 11:15 AM EDT [facility] Final Resu lt [facility] [address] [place] [address] [phone] * Hepatitis C Antibody with Reflex to HCV, RNA, Quantitative, Real-Time PCR (10/05/2023 11:59 AM EST) Hepatitis C Antibody Nonreactive Nonreactive [facility] Comment:Antibodies to HCV no t detected; does not exclude early acuteHCV infection. Blood Venous blood specimen / Unknown 10/05/2023 11:59 AM EST 10/05/2023 1:09 PM EST [facility] [employer] LAB BLOOD ORDERABLES Final Resu lt Performing Organization Address [facility] Co de Phone Number [facility] [address] [place] [address] [phone] * HIV-1/2 Antigen and Antibodies, Fourth Generation, with Reflexes (10/05/2023 11:59 AM EST) HIV AB/AG Nonreactive Nonreactive [facility] Comment:HIV-1 p24 Ag and/or HIV-1/HIV-2 Ab not detected.A test result that is nonreactive does not exclude thepossibility of exposure to or infection with HIV-1 and/orHIV-2. Nonreactive results in this assay for individualswith prior exposure to HIV-1 and/or HIV-2 may be due toantigen and antibody levels that are below the limit ofdetection of this assay.The [employer] HIV Ag/Ab Combo assay result andsupplemental assay results should be interpreted inconjunction with the patient's clinical presentation,history and other laboratory results. If the results areinconsistent with clinical evidence, additional testing issuggested to confirm the result. Blood Venous blood specimen / Unknown 10/05/2023 11:59 AM EST 10/05/2023 1:09 PM EST Fior Pollack [employer] C[employer]ODIAN LAB BLOOD ORDERABLES Final Resu lt Performing Organization Address [facility] Co de Phone Number [facility] [address] [place] [address] [phone] * Hm Pap Smear (06/15/2013) Pap Negative for intraephithelial lesion or malignancy Negative for intraephithelial lesion or malignancy, Other Comment:NILM HPV Not Detected Undetected, Indeterminate, Quantitative, Not Detected Comment:Negative Historical Provider HEALTH MAINTENANCE Final Result from Last 3 Months or Most Recently Relevant to Health Maintenance Insurance [employer] < 65 [place] [id number] * Guarantor: Haylee Elmore Account Type Relation to Patient Date of Phone Billing Address Personal/Family Self [address] [place] [phone] * Guarantor: Haylee Elmore Account Type Relation to Patient Date of Phone Billing Address Personal/Family Self [address] [place] [phone] * Guarantor: Haylee Elmore Account Type Relation to Patient Date of Phone Billing Address Personal/Family Self [address] [place] [phone] Care Teams Ordnance Mechanic Relationship Specialty Start Date End Date Fior Pollack NP [address] [place] [phone] PCP - General Family Medicine 07/20/23
--- OUTSIDE RECORDS SUMMARY | 2024-12-26 12:27 | XMS_ITS | Encounter Summary ---
Author Organization [employer] Address [address] [facility] 7t [place] [address] Care Team Providers Care Secretary Receptionist Name Role Phone Fior Pollack NP Primary Care Provider [phone] Reason for Visit * Reason Onset Date Comments Durable Medical Equipment 12/22/2024 Encounter Details Date Type Department Care Team ([facility] st Contact Info) Description 12/22/2024 Telephone [facility] [address] [place] [address] Fior Pollack NP [address] [place] [address] Durable Medical Equipment Social History Tobacco Use Types Packs/Day Years [...] encounter Miscellaneous Notes * Telephone Encounter - Ashley Daly - 12/22/2024 2:57 PM EDT DME RX for interdry moisture wicking cloth generated and sent to provider for signature via [employer]. * Telephone Encounter - Ashley Daly - 12/22/2024 2:57 PM EDT ----- Message from Fior Pollack sent at 12/20/2024 12:37 PM EDT ----- Hello, please process DME for interdry a moisture wicking cloth for this patient. Thank you documented in this encounter Plan of Treatment Upcoming Encounters Date Type Department Care Team ([facility] st Contact Info) Description 03/21/2025 3:15 PM EDT Office Visit [facility] [address] [place] [address] Fior Pollack NP [address] [place] [address] documented as of this encounter Visit Diagnoses Not on filedocumented in this encounter Additional Health Concerns Assessment Noted Time PHQ-9 Depression Total Score: 1 10/21/19 25 9:56 AM EDT documented as of this encounter Care Teams Secretary Receptionist Relationship Specialty Start Date End Date Fior Pollack NP [address] [place] [address] PCP - General Family Medicine 07/20/23 documented as of this encounter
--- OUTSIDE RECORDS SUMMARY | 2024-12-26 12:27 | XMS_ITS | Encounter Summary ---
Author Organization [employer] Address [address] [facility] 7t [place] [address] Care Team Providers Care Fitness Technician Name Role Phone Fior Pollack NP Primary Care Provider [phone] Encounter Details Date Type Department Care Team (Late st Contact Info) Description 12/26/2024 Orders Only [facility] [address] [place] [address] Fior Pollack NP [address] [place] [address] Social History Tobacco Use Types Packs/Day Years [...] Description 03/21/2025 3:15 PM EDT Office Visit [facility] [address] [place] [address] Fior Pollack NP [address] [place] [address] documented as of this encounter Procedures Procedure Name Priority Date/Time Associated Diagnosis Comments BI MAMMOGRAM DIAGNOSTIC TOMOSYNTHESIS ADDED VIEW RIGHT Routine 12/26/2024 11:15 AM EDT documented in this encounter Results * BI Mammogram Diagnostic Tomosynthesis added right (12/26/2024 11:15 AM EDT) Anatomical Region Laterality Modality Breast Left Mammography 12/26/2024 11:1 5 AM EDT Narrative 12/26/2024 12:20 PM EDT ? [facility] ? [address] ?[place] [address] ?[phone] ? Mammography Report ? Signed ? Patient: Elmore,Haylee I ?MR#: [id number] ?? [id number] ? : 1975 ?Acct:[id number] ? Age/Sex: 49 / F ?ADM Date: 05/20/25 ? Loc: HO.MAMMO ? Attending Dr: Fior Pollack ? Ordering Physician: Fior Pollack ?Results: 3.6MProbab ?? ly Benign Finding - Short 6 M F/U Suggested ? Date of Service: 12/26/24 ?Follow Up: 6 Month F/U ? Procedure(s): MM tomosynthesis added views R ?? Accession Number(s): [id number] ? cc: Fior Pollack ? EXAMINATION: ?? [...] ??Lelia Martinez DO ??12/26/2024 12:16 PM EDT ? Dictated By: ?Lelia Martinez DO ? Signed By: ?<Electronically signed by Lelia aMrtinez, DO in OV> ? 12/26/24 1216 ? DD/ 1115 ? TD/TT: 12/26/24 1135 ? Tune Up Mechanic: ? Procedure Note Julia Jansen - 12/26/2024 [place] [facility] [address] [place] [address] Mammography Report Signed Patient: Haylee Elmore [facility]#: [id number] : 1975Acct:[id number] Age/Sex: 49 / FADM Date: 12/26/24 Loc: HO.MAMMO Attending Dr: Fior Pollack Ordering Physician: Fior PollackResults: 3.6MProbab ly Benign Finding - Short 6 M F/U Suggested Date of Service: 12/26/24Follow Up: 6 Month F/U Procedure(s): MM tomosynthesis added views R Accession Number(s): [id number] cc: Fior Pollack EXAMINATION: MM DIAGNOSTIC DIGITAL BREAST TOMOSYNTHESIS, RIGHT [...] Lelia Martinez DO 12/26/2024 12:16 PM EDT Dictated By: Lelia Martinez DO Signed By: <Electronically signed by Lelia Martinez DO in OV> 12/26/24 1216 DD/ 1115 TD/TT: 12/26/24 1135 Tune Up Mechanic: us Fior Pollack NP IMG BI PROCEDURES Final Result documented in this encounter Visit Diagnoses Not on filedocumented in this encounter Additional Health Concerns Assessment Noted Time PHQ-9 Depression Total Score: 1 10/21/19 9:56 AM EDT documented as of this encounter Care Teams Fitness Technician Relationship Specialty Start Date End Date Fior Pollack NP [address] [place] [address] PCP - General Family Medicine 07/20/23 documented as of this encounter
--- OUTSIDE RECORDS SUMMARY | 2024-12-26 12:27 | XMS_ITS | Encounter Summary ---
Author Organization [employer] Address [address] [facility] [address]t [place] [address] Care Team Providers Care Control Director Name Role Phone Fior Pollack DREDGE RUNNER Primary Care Provider [phone] Tyesha Ingram ANP Primary Care Provider [phone] Fior Pollack DREDGE RUNNER Primary Care Provider [phone] Encounter Details Date Type Department Care Team ([facility] st Contact Info) Description 06/14/2023 Telephone [facility] MEDICINE [address] [place] [address] Fior Pollack NP [address] [place] [address] Social History Tobacco Use Types Packs/Day Years [...] 3:15 PM EDT Office Visit [facility] MED[facility] [address] [place] [address] Fior Pollack NP [address] [place] [address] documented as of this encounter Visit Diagnoses Not on filedocumented in this encounter Care Teams Control Director Relationship Specialty Start Date End Date Fior Pollack NP [address] [place] [address] PCP - General Family Medicine 05/13/23 07/11/23 Tyesha Ingram ANP [address] [place] [id number] PCP - General Family Medicine 07/12/23 07/19/23 Fior Pollack NP [address] [place] [address] PCP - General Family Medicine 07/20/23 documented as of this encounter
--- OUTSIDE RECORDS SUMMARY | 2024-12-26 12:27 | XMS_ITS | Encounter Summary ---
Author Organization [employer] Address [address] [facility] 7[address] [place] [address] Care Team Providers Care Manual Winder Name Role Phone Firo Pollack NP Primary Care Provider [phone] Encounter Details Date Type Department Care Team (Latest Contact Info) Description 12/20/2024 Results Follow-Up [facility] MEDICINE [address] [place] [address] Fior Pollack NP [address] [place] [address] BI Mammogram Screening Tomosynthesis Bilateral Social History [...] Description 03/21/2025 3:15 PM EDT Office Visit [facility] MED[facility]INE [address] [place] [address] Fior Pollack NP [address] [place] [address] documented as of this encounter Visit Diagnoses Not on filedocumented in this encounter Additional Health Concerns Assessment Noted Time PHQ-9 Depression Total Score: 1 10/21/19 25 9:56 AM EDT documented as of this encounter Care Teams Manual Winder Relationship Specialty Start Date End Date Fior Pollack NP [address] [place] [address] PCP - General Family Medicine 07/20/23 documented as of this encounter
--- OUTSIDE RECORDS SUMMARY | 2024-12-26 12:27 | XMS_ITS | Encounter Summary ---
Author Organization [employer] Address [address] [facility] 7[address] [place] [address] Care Team Providers Care Pipe Insulator Helper Name Role Phone Fior Pollack GUERRERO Primary Care Provider [phone] Reason for Visit * Reason Comments Med Refill Encounter Details Date Type Department Care Team ([facility] st Contact Info) Description 08/05/2023 Refill [facility] [address] [place] [address] Lety Bronson MD [address] [place] [address] COVID-19 Social History Tobacco Use Types Packs/Day [...] Description 03/21/2025 3:15 PM EDT Office Visit [facility] MEDICINE [address] [place] [address] Fior Pollack NP [address] [place] [address] documented as of this encounter Visit Diagnoses Diagnosis COVID-19 documented in this encounter Care Teams Pipe Insulator Helper Relationship Specialty Start Date End Date Fior Pollack NP [address] [place] [address] PCP - General Family Medicine 07/20/23 documented as of this encounter
--- OUTSIDE RECORDS SUMMARY | 2024-12-26 12:27 | XMS_ITS | Encounter Summary ---
Author Organization [employer] Address [address] [facility] 7t [place] [address] Care Team Providers Care Amphibian Crewmember Name Role Phone Jaki Fior COMPUTER PROGRAMMER CHIEF Primary Care Provider [phone] Tyesha Ingram ANP Primary Care Provider [phone] Fior Pollack COMPUTER PROGRAMMER CHIEF Primary Care Provider [phone] Reason for Visit * Reason Comments Med Refill Encounter Details Date Type Department Care Team (Late st Contact Info) Description 06/21/2023 Refill [facility] [address] [place] [address] Lety Bronson MD [address] [place] [address] Shortness of breath Social History Tobacco Use [...] t he electric, gas, oil or water [employer] threatened to shut off services in your [...] 3:15 PM EDT Office Visit [facility] MED[facility] [address] [place] [address] Fior Pollack NP [address] [place] [address] documented as of this encounter Visit Diagnoses Diagnosis Shortness of breath documented in this encounter Care Teams Amphibian Crewmember Relationship Specialty Start Date End Date Fior Pollack NP [address] [place] [address] PCP - General Family Medicine 05/13/23 07/11/23 Tyesha Ingram ANP [address] [place] [address] PCP - General Family Medicine 07/12/23 07/19/23 Fior Pollack NP [address] [place] [address] PCP - General Family Medicine 07/20/23 documented as of this encounter
--- OUTSIDE RECORDS SUMMARY | 2024-12-26 12:27 | XMS_ITS | Encounter Summary ---
Author Organization [email or web address] Address [address] [facility] 7t [place] [address] Care Team Providers Care Doughnut Fryer Name Role Phone Fior Pollack GUERRERO Primary Care Provider [phone] Encounter Details Date Type Department Care Team (Late st Contact Info) Description 10/20/[address] [facility] MED[facility]INE [address] [place] [address] Facundo Carpenter, YeisonD [address] [place] [address] Social History Tobacco Use Types Packs/Day Years [...] Description 03/21/2025 3:15 PM EDT Office Visit [facility] MED[facility] [address] [place] [address] Fior Pollack NP [address] [place] [address] documented as of this encounter Visit Diagnoses Not on filedocumented in this encounter Additional Health Concerns Assessment Noted Time PHQ-9 Depression Total Score: 1 10/21/19 25 9:56 AM EDT documented as of this encounter Care Teams Doughnut Fryer Relationship Specialty Start Date End Date Fior Pollack NP [address] [place] [address] PCP - General Family Medicine 07/20/23 documented as of this encounter
== END 2024-12-26 11:10 | disposition home or self-care (01) ==
LOC: HO.MAMMO 11:09
PROVIDERS: PCP Nurse Practitioner; Visit Provider Nurse Practitioner
DX: N64.89 Other specified disorders of breast (principal)
CPT/HCPCS: 76642; 77061; 77065

== ENCOUNTER → 2024-12-26 11:30 | Outpatient (BNV) | payer OTHER, SELFPAY | PROVIDERS: PCP Nurse Practitioner; Visit Provider Internal Medicine | DX: N63.10 Unspecified lump in the right breast, unspecified quadrant (principal); R92.321 Mammographic fibroglandular density, right breast | CPT/HCPCS: 76642; 77065; G0279 ==

== ENCOUNTER 2025-03-13 10:46 | Outpatient (REF) | payer OTHER, SELFPAY ==
[2025-03-13 10:57] LABS: MANUAL DIFF FLAG NO
[2025-03-13 11:11] LABS: Hematocrit 42.1 % (37.0-47.0); Hemoglobin 13.4 g/dl (12.0-16.0); Imm Gran Abs Auto 0.03 X10*3/uL (0.00-0.03); Imm Gran Pct Auto 0.3 % (0.0-0.4); Lymphocytes Absolute Auto 4.6 X10*3/uL (1.2-4.9); Mean Corpuscular HGB Conc 31.8 g/dl (31.0-35.0); Mean Corpuscular Hemoglobin 27.7 pg (27.0-33.0); Mean Corpuscular Volume 87.0 fL (80.0-98.0); NRBC Abs Auto 0.000 X10*3/uL (0.0-0.012); NRBC Pct Auto 0.0 /100WBC (0.0-0.2); Platelet Count 301 X10*3/uL (160-400); Red Blood Count 4.84 X10*6/uL (4.20-5.50); White Blood Count 9.1 X10*3/uL (4.8-10.8)
[2025-03-13 11:55] LABS: Alanine Aminotransferase 44 U/L (0-31); Albumin Level 4.2 g/dL (3.5-5.0); Alkaline Phosphatase 68 U/L (39-117); Anion Gap 9 (12-20); Aspartate Amino Transferase 30 U/L (5-31); Blood Urea Nitrogen 9 mg/dL (9-16); Calcium 9.3 mg/dL (8.4-10.2); Carbon Dioxide 28 mmol/L (22-29); Chloride 108 mmol/L (96-108); Estimated Glomerular Filt Rate > 60; Potassium 4.2 mmol/L (3.3-5.1); Sodium 141 mmol/L (135-145); Total Protein 7.4 g/dL (6.5-8.0)
[2025-03-16 06:03] LABS: Quantiferon TB Gold Plus 1 NEGATIVE (NEGATIVE); TB Test (QFT) Mitogen -Nil >10.00 IU/mL; TB Test (QFT) Nil 0.05 IU/mL; TB Test (QFT) Plus TB1 -Nil 0.00 IU/mL; TB Test (QFT) Plus TB2 -Nil 0.01 IU/mL
== END 2025-03-13 10:47 | disposition home or self-care (01) ==
LOC: HO.LAB 10:46
PROVIDERS: PCP Nurse Practitioner; Visit Provider Physician Assistant Medical
DX: Z11.1 Encounter for screening for respiratory tuberculosis (principal); L40.0 Psoriasis vulgaris; Z79.899 Other long term (current) drug therapy
CPT/HCPCS: 36415; 80053; 85025; 86480